=== PATIENT | male | born 1955 | race Caucasian/White ===

== ENCOUNTER → 2018-06-01 10:27 | Outpatient (CLI) | payer BC, SELFPAY ==
[2018-06-01 12:15] LABS: Absolute Lymphocyte Count 0.64 X10^3/ul (0.83-4.51); Absolute Neutrophil Count 6.1 X10^3/uL (2.0-7.7); Basophil# 0.03 X10^3/uL; Basophil% 0.4 % (0-1); Eosinophil# 0.18 X10^3/uL; Eosinophils% 2.4 % (0-5); Hematocrit 43.2 % (40-54); Hemoglobin 14.9 g/dl (13.0-16.5); Lymphocyte # 0.64 X10^3/ul (4.0); Lymphocyte % 8.4 % (19-41); Mean Corp Hgb Conc 34.5 g/gl (32-36); Mean Corpuscular Hgb 33.2 pg (27.0-32.0); Mean Corpuscular Volume 96.2 fL (80-94); Mean Platelet Vol. 9.8 fl (6.2-12.0); Monocyte# 0.62 X10^3/uL; Monocyte% 8.2 % (0-10); Neutrophil # 6.09 X10^3/uL (2.7-7.7); Neutrophil % 80.3 % (47-70); Platelet Count 269 K/mm3 (150-450); RBC Distribution Width CV 12.4 % (11.6-14.6); RBC Distribution Width SD 41.9 fl (35.1-43.9); Red Blood Count 4.49 M/mm3 (4.6-6.2); White Blood Count 7.6 K/mm3 (4.4-11.0)
[2018-06-01 12:22] LABS: Anion Gap 9 (5-15); BUN 21 mg/dL (7-18); BUN/Creat Ratio 17.9 RATIO (10-20); Calcium,Total 8.6 mg/dL (8.5-10.1); Chloride 103 mmol/L (98-107); Cholesterol 107 mg/dL (200); Creatinine, Serum 1.17 mg/dL (0.70-1.30); EST Glomerular Filtration Rate 67 mL/min (>60); Est Glom Filt Rate - Afr Amer 81 mL/min (>60); Glucose 91 mg/dL (74-106); High Density Lipoprotein 40 mg/dL; Potassium 4.1 mmol/L (3.5-5.1); Sodium Level 140 mmol/L (136-145); Thyroid Stim Hormone (TSH) 2.23 uIU/mL (0.358-3.74); Triglycerides 72 mg/dL; Very Low Density Lipoprotein 14 mg/dL (5-40)
[2018-06-01 12:26] LABS: POSITIVE COUNT NO; POSITIVE DIFFERENTIAL NO; POSITIVE MORPHOLOGY NO
== END ==
PROVIDERS: Family Provider Family Medicine; PCP Family Medicine; Visit Provider Family Medicine
DX: I10 Essential (primary) hypertension (principal); E78.5 Hyperlipidemia, unspecified; E03.9 Hypothyroidism, unspecified; J32.9 Chronic sinusitis, unspecified
CPT/HCPCS: 36415; 80048; 80061; 84443; 85025

== ENCOUNTER → 2018-12-28 17:02 | Outpatient (CLI) | payer BC, SELFPAY ==
[2018-12-28 16:12] VITALS: BMI 29.2
[2018-12-28 17:53] LABS: Anion Gap 10 (5-15); BUN 25 mg/dL (7-18); BUN/Creat Ratio 21.9 RATIO (10-20); Chloride 107 mmol/L (98-107); Creatinine, Serum 1.14 mg/dL (0.70-1.30); EST Glomerular Filtration Rate 69 mL/min (>60); Est Glom Filt Rate - Afr Amer 83 mL/min (>60); Glucose 88 mg/dL (74-106); Magnesium 2.2 mg/dL (1.6-2.6); Potassium 4.3 mmol/L (3.5-5.1); Sodium Level 143 mmol/L (136-145); T4 Free Direct 1.06 ng/dL (0.76-1.46); Thyroid Stim Hormone (TSH) 2.15 uIU/mL (0.358-3.74)
== END ==
PROVIDERS: Family Provider Family Medicine; PCP Family Medicine; Referring Provider Nurse Practitioner Family; Visit Provider Nurse Practitioner Family
DX: I48.92 Unspecified atrial flutter (principal); E78.5 Hyperlipidemia, unspecified; I10 Essential (primary) hypertension; R00.2 Palpitations
CPT/HCPCS: 36415; 80048; 83735; 84439; 84443

== ENCOUNTER → 2019-01-12 12:48 | Outpatient (CLI) | payer BC, SELFPAY ==
[2018-12-28 16:12] VITALS: BMI 29.2
== END ==
PROVIDERS: Family Provider Family Medicine; PCP Family Medicine; Referring Provider Nurse Practitioner Family; Visit Provider Nurse Practitioner Family
DX: R00.2 Palpitations (principal); I48.92 Unspecified atrial flutter
CPT/HCPCS: 93225; 93226

== ENCOUNTER → 2020-01-12 08:14 | Outpatient (CLI) | payer MEDICARE, BC, OTHER, SELFPAY ==
[2019-12-29 15:13] VITALS: BMI 30.1
[2020-01-12 08:17] LABS: Bacteria 0 SEEN /hpf (None Seen); Mucous, Urine 0 SEEN /hpf (<or=2+); Red Blood Cells-Urine 0 SEEN /hpf (0-5); Squamous Epithelial Cells - UA 0 SEEN /hpf (0-5); White Blood Cells 0 SEEN /hpf (0-5)
[2020-01-12 10:25] LABS: Color, Urine Yellow (Yellow); Glucose, Dipstick Normal (Normal); Ketone-Dipstick Negative (Negative); Leukocyte Esterase-Dipstick Negative /ul (Negative); Nitrite-Dipstick Negative (Negative); Occult Blood-Urine Negative /ul (Negative); Protein-Dipstick Negative (Negative); Specific Gravity, Urine 1.015 (1.002-1.030); Urine Bilirubin Dipstick Negative (Negative); Urine Clarity Clear (Clear); Urine Urobilinogen Normal (Normal)
[2020-01-12 10:29] LABS: Hematocrit 48.4 % (40-54); Hemoglobin 15.9 g/dL (13.0-16.5); Mean Corp Hgb Conc 32.9 g/dL (32-36); Mean Corpuscular Hgb 31.3 pg (27.0-32.0); Mean Corpuscular Volume 95.3 fL (80-94); Mean Platelet Vol. 9.7 fl (6.2-12.0); Platelet Count 307 K/mm3 (150-450); RBC Distribution Width CV 11.9 % (11.6-14.6); RBC Distribution Width SD 41.7 fl (35.1-43.9); Red Blood Count 5.08 M/mm3 (4.6-6.2); White Blood Count 7.7 K/mm3 (4.4-11.0)
[2020-01-12 11:02] LABS: ALB/GLOB Ratio 1.1 RATIO (0.9-2.4); AST(SGOT) 24 U/L (15-37); Alanine Aminotransfer ALT/SGPT 36 U/L (16-61); Albumin, Serum 4.3 g/dL (3.2-5.0); Alkaline Phosphatase 124 U/L (45-117); Anion Gap 4 (5-15); BUN 25 mg/dL (7-18); BUN/Creat Ratio 19.2 RATIO (10-20); Calcium,Total 10.1 mg/dL (8.5-10.1); Chloride 105 mmol/L (98-107); Cholesterol 154 mg/dL (200); EST Glomerular Filtration Rate 59 mL/min (>60); Est Glom Filt Rate - Afr Amer 71 mL/min (>60); Globulin 3.8 g/dL (2.2-4.2); Glucose 102 mg/dL (74-106); High Density Lipoprotein 37 mg/dL; Potassium 4.4 mmol/L (3.5-5.1); Protein, Total 8.1 g/dL (6.4-8.2); Sodium Level 137 mmol/L (136-145); T4 Free Direct 0.93 ng/dL (0.76-1.46); Thyroid Stim Hormone (TSH) 2.69 uIU/mL (0.358-3.74); Triglycerides 172 mg/dL; Very Low Density Lipoprotein 34 mg/dL (5-40)
[2020-01-12 17:09] LABS: Hemoglobin A1c 6.1 % (4.2-6.3)
== END ==
PROVIDERS: PCP Family Medicine; Referring Provider Family Medicine; Visit Provider Family Medicine
DX: E03.9 Hypothyroidism, unspecified (principal); E78.5 Hyperlipidemia, unspecified; I10 Essential (primary) hypertension; R73.09 Other abnormal glucose
CPT/HCPCS: 36415; 80053; 80061; 81001; 83036; 84439; 84443; 85027

== ENCOUNTER → 2020-01-19 09:49 | Outpatient (CLI) | payer BC, MEDICARE, OTHER, SELFPAY ==
[2019-12-29 15:13] VITALS: BMI 30.1
[2020-01-27 14:09] LABS: Thyroglobulin RIA 15 ng/mL (.); Thyroid Peroxidase AB 64 IU/mL (0-34)
== END ==
PROVIDERS: PCP Family Medicine; Referring Provider Family Medicine; Visit Provider Family Medicine
DX: E03.9 Hypothyroidism, unspecified (principal)
CPT/HCPCS: 36415; 84432; 86376; 86800

== ENCOUNTER → 2020-02-03 14:16 | Outpatient (CLI) | payer MEDICARE, OTHER, SELFPAY ==
[2019-12-29 15:13] VITALS: BMI 30.1
--- NOTE | 2020-02-03 14:25 | RAD_ITS ---
STUDY: X-RAY - LUMBAR SPINE REASON FOR EXAM: Male, 64 years old. Lower back pain TECHNIQUE: 5 view(s) of the lumbar spine were obtained. COMPARISON: 03/05/2017 FINDINGS: There is no evidence of fracture or dislocation in the lumbar spine. The vertebral body heights are well-maintained. There are stable degenerative changes which are most pronounced at L5/S1. RAD/L/S Spine Min 4 Views IMPRESSION: No fracture or dislocation in the lumbar spine. Stable degenerative change. Electronically Signed: Avni Avery, at 14:38 EDT Tel , Service support ,
[2020-02-03 18:04] LABS: CPK Total, Creatine Kinase 136 U/L (39-308); Ferritin 51 ng/mL (26-388); Magnesium 2.1 mg/dL (1.6-2.6)
[2020-02-03 18:10] LABS: Erythrocyte Sedimentation Rate 14 mm/hr (0-20)
== END ==
PROVIDERS: PCP Family Medicine; Referring Provider Family Medicine; Visit Provider Family Medicine
DX: M54.5 Low back pain (principal); R25.2 Cramp and spasm; M62.81 Muscle weakness (generalized); N18.9 Chronic kidney disease, unspecified
CPT/HCPCS: 36415; 72110; 82550; 82728; 83735; 85652

== ENCOUNTER → 2020-05-01 | Outpatient (CLI) | payer MEDICARE, OTHER, SELFPAY ==
[2019-12-29 15:13] VITALS: BMI 30.1
[2020-05-01 12:16] LABS: Absolute Lymphocyte Count 1.24 X10^3/uL (0.83-4.51); Absolute Neutrophil Count 3.3 X10^3/uL (2.0-7.7); Basophil# 0.04 X10^3/uL; Basophil% 0.7 % (0-1); Eosinophil# 0.25 X10^3/uL; Eosinophils% 4.5 % (0-5); Hematocrit 43.5 % (40-54); Hemoglobin 14.9 g/dL (13.0-16.5); Lymphocyte # 1.24 X10^3/ul (4.0); Lymphocyte % 22.3 % (19-41); Mean Corp Hgb Conc 34.3 g/dL (32-36); Mean Corpuscular Hgb 33.5 pg (27.0-32.0); Mean Corpuscular Volume 97.8 fL (80-94); Mean Platelet Vol. 9.7 fl (6.2-12.0); Monocyte# 0.68 X10^3/uL; Monocyte% 12.2 % (0-10); NRBC Flagged by Analyzer 0 % (0-5); Neutrophil # 3.31 X10^3/uL (2.7-7.7); Neutrophil % 59.6 % (47-70); Platelet Count 246 K/mm3 (150-450); RBC Distribution Width CV 12.2 % (11.6-14.6); RBC Distribution Width SD 43.9 fl (35.1-43.9); Red Blood Count 4.45 M/mm3 (4.6-6.2); White Blood Count 5.6 K/mm3 (4.4-11.0)
[2020-05-01 12:27] LABS: Hemoglobin A1c 6.3 % (3.8-5.6)
[2020-05-01 12:44] LABS: ALB/GLOB Ratio 1.1 RATIO (0.9-2.4); AST(SGOT) 33 U/L (15-37); Alanine Aminotransfer ALT/SGPT 46 U/L (16-61); Albumin, Serum 3.8 g/dL (3.2-5.0); Alkaline Phosphatase 141 U/L (45-117); Anion Gap 8 (5-15); BUN 25 mg/dL (7-18); BUN/Creat Ratio 19.4 RATIO (10-20); Calcium,Total 8.6 mg/dL (8.5-10.1); Chloride 104 mmol/L (98-107); Cholesterol 160 mg/dL (200); Creatinine, Serum 1.29 mg/dL (0.70-1.30); EST Glomerular Filtration Rate 59 mL/min (>60); Est Glom Filt Rate - Afr Amer 72 mL/min (>60); Globulin 3.5 g/dL (2.2-4.2); Glucose 119 mg/dL (74-106); High Density Lipoprotein 28 mg/dL; Potassium 4.1 mmol/L (3.5-5.1); Protein, Total 7.3 g/dL (6.4-8.2); Sodium Level 137 mmol/L (136-145); T4 Free Direct 0.86 ng/dL (0.76-1.46); Thyroid Stim Hormone (TSH) 3.43 uIU/mL (0.358-3.74); Triglycerides 430 mg/dL
== END | disposition home or self-care (01) ==
LOC: MTLAB 09:05
PROVIDERS: PCP Family Medicine; Referring Provider Family Medicine; Visit Provider Family Medicine
DX: E78.5 Hyperlipidemia, unspecified (principal); E03.8 Other specified hypothyroidism; I10 Essential (primary) hypertension; R73.02 Impaired glucose tolerance (oral)
CPT/HCPCS: 36415; 80053; 80061; 83036; 84439; 84443; 85025

== ENCOUNTER → 2020-05-17 12:40 | Outpatient (CLI) | payer MEDICARE, OTHER, SELFPAY ==
[2019-12-29 15:13] VITALS: BMI 30.1
--- NOTE | 2020-05-17 12:44 | ECHOCS_ITS ---
Reason For Study: SOB Procedure This was a 2D Doppler, Color Flow transthoracic echocardiogram. The study was technically difficult. Due to body habitus. Contrast injection was performed. Exam performed in department. Left Ventricle Normal LV size. Segmental dysfunction with preserved ejection fraction (see wall motion). The estimated ejection fraction is 60 %. Post operative septal motion. Diastolic function is indeterminate. Mid-inferoseptal : Hypokinetic. Mid-anteroseptal : Mildly hypokinetic. Right Ventricle Normal RV size. Normal systolic function. Atria Normal left atrium. Normal right atrium. No doppler evidence for ASD. Mitral Valve There is no mitral annular calcification. Normal mitral valve. Mild-Moderate (1-2+) mitral valve insufficiency. Tricuspid Valve Normal tricuspid valve. Trivial tricuspid valve insufficiency. Right ventricular systolic pressure estimated to be 35 mmHg. Aortic Valve Trisinus/trileaflet aortic valve. Mild focal aortic valve thickening. Pulmonic Valve The pulmonic valve is not well visualized. Great Vessels Normal sized aortic root. Pericardium/Pleural No pericardial effusion. Medication 22 gauge I.V. with prn adaptor inserted into right arm. Diluted definity 3.0ml given slow IV push to enhance endocardial definition. MMode/2D Measurements & Calculations LVIDd: 4.3 cm IVSd: 0.98 cm Ao root diam: 3.5 cm LVIDs: 3.2 cm LVPWd: 0.98 cm RVDd: 3.4 cm FS: 24.4 % LAV(MOD-bp): 54.5 ml LA A4 area: 19.3 cm2 LA dimension(2D): 3.5 cm LAV(MOD-bp) Indexed: 27.3 ml/m2 LAV(MOD-sp2): 54.0 ml LAV(MOD-sp4): 54.6 ml RA A4 area: 14.0 cm2 Time Measurements MV dec time: 0.22 sec Doppler Measurements & Calculations MV E max michi: 79.5 cm/sec Lat Peak E' Michi: 7.9 cm/sec Med Peak E' Michi: 6.3 cm/sec MV A max michi: 89.2 cm/sec E/E' lat: 10.0 E/E' med: 12.7 MV E/A: 0.89 Ao V2 max: 146.3 cm/sec LV V1 max: 126.3 cm/sec PA V2 max: 103.9 cm/sec Ao max P.6 mmHg LV V1 max P.4 mmHg Ao V2 mean: 97.2 cm/sec LV V1 mean P.4 mmHg Ao mean P.2 mmHg LV V1 mean: 87.7 cm/sec Ao V2 VTI: 29.4 cm LV V1 VTI: 27.0 cm TR max michi: 282.3 cm/sec TR max P.9 mmHg Interpretation Summary The study was technically difficult. Contrast injection was performed. Segmental dysfunction with preserved ejection fraction (see wall motion). The estimated ejection fraction is 60 %. Post operative septal motion. Mild-Moderate (1-2+) mitral valve insufficiency. Trivial tricuspid valve insufficiency. Mild focal aortic valve thickening. Right ventricular systolic pressure estimated to be 35 mmHg. Diastolic function is indeterminate. Ordering Physician: Jez Gotti Referring Physician: Jez Gotti Performed By: Mayra Piña RDCS, RVT
== END ==
PROVIDERS: PCP Family Medicine; Referring Provider Family Medicine; Visit Provider Family Medicine
DX: R06.02 Shortness of breath (principal)
CPT/HCPCS: 93306; Q9957; A4216; C8929

== ENCOUNTER → 2020-07-06 07:00 | Outpatient (CLI) | payer MEDICARE, OTHER, SELFPAY ==
[2019-12-29 15:13] VITALS: BMI 30.1
[2020-06-28 10:25] VITALS: BMI 31.9
--- NOTE | 2020-07-07 10:25 | PFT ---
INTRODUCTION: The patient is a 64-year-old male that presents for pulmonary function studies secondary to a diagnosis of shortness of breath. Respiratory therapy reports good patient effort. Bronchodilators were used during testing. INTERPRETATION: Forced expiration spirometry demonstrates no evidence of a large airways obstructive ventilatory defect. There was no significant response to aerosolized bronchodilators, based upon strict ATS criteria. Spirograms are of good quality and plateau normally. Body plethysmography was performed and reveals a decreased TLC to 4.59 L, 82% of predicted, indicative of a mild restrictive ventilatory impairment. Diffusing capacity by single breath CO is within normal limits. IMPRESSION: Isolated mild restrictive ventilatory impairment with preserved diffusing capacity.
== END ==
PROVIDERS: PCP Family Medicine; Referring Provider Family Medicine; Visit Provider Family Medicine
DX: R06.02 Shortness of breath (principal)
CPT/HCPCS: 94060; 94726; 94729

== ENCOUNTER → 2020-08-22 13:36 | Outpatient (CLI) | payer MEDICARE, OTHER, SELFPAY ==
[2020-07-17 08:52] VITALS: BMI 32.5
[2020-08-22 13:45] VITALS: PULSE 54; PULSE 57; PULSE 67; PULSE 72; PULSE 79; PULSE 80; PULSE 82; PULSE 89; O2SAT 94; O2SAT 95; O2SAT 96; O2SAT 98
--- NOTE | 2020-08-23 14:02 | PCM.PSN.6M ---
PSN 6 Minute Walk Test - 6 Minute Walk Test 6 Minute Walk Test: 6 Minute Walk Test PSN:6-Minute Walk Test Start: 08/22/20 14:12 Freq: Status: Active Protocol: RESP.6MINW Document 08/22/20 13:45 HJ (Rec: 08/22/20 14:15 [id number]) 6 Minute Walk Test Date Performed 08/22/20 Time Performed 13:45 Height 5 ft 6 in Weight: 87.09 kg Weight in Pounds 192.[address]: Bradford Up FIO2 (% Oxygen) 21 Assistive device used: None Pre-test Oxygen Delivery Method Room Air Pulse Ox (%) 98 Pulse Rate (60-100 beats/min) 54 L Dyspnea Esther Scale (0-10) 0 Exertion Esther Scale (6-20) 6 1st minute Oxygen Delivery Method Room Air Pulse Ox (%) 95 Pulse Rate (60-100 beats/min) 80 2nd minute Oxygen Delivery Method Room Air Pulse Ox (%) 94 Pulse Rate (60-100 beats/min) 67 3rd minute Oxygen Delivery Method Room Air Pulse Ox (%) 95 Pulse Rate (60-100 beats/min) 89 4th minute Oxygen Delivery Method Room Air Pulse Ox (%) 94 Pulse Rate (60-100 beats/min) 72 5th minute Oxygen Delivery Method Room Air Pulse Ox (%) 96 Pulse Rate (60-100 beats/min) 82 6th minute Oxygen Delivery Method Room Air Pulse Ox (%) 95 Pulse Rate (60-100 beats/min) 79 Post-test Oxygen Delivery Method Room Air Pulse Ox (%) 98 Pulse Rate (60-100 beats/min) 57 L Dyspnea Esther Scale (0-10) 1 Exertion Esther Scale (6-20) 6 Full Laps Walked 18 Partial Lap, Number of Tiles Walked 0 Total Distance Walked (ft) 1062 - Interpretation Interpretation: The patient was able to ambulate 1062 feet over the course of 6 minutes on room air with no assistive devices or breaks. No significant tachycardia was noted. These findings are consistent with a normal walking oximetry. - Recommendations Recommendations: No supplemental oxygen is indicated at this time.
== END ==
PROVIDERS: PCP Family Medicine; Referring Provider Internal Medicine Critical Care Medicine; Visit Provider Internal Medicine Critical Care Medicine
DX: R06.02 Shortness of breath (principal)
CPT/HCPCS: 94618

== ENCOUNTER → 2020-08-25 08:42 | Outpatient (CLI) | payer MEDICARE, OTHER, SELFPAY ==
[2020-07-17 08:52] VITALS: BMI 32.5
[2020-08-25 08:53] LABS: Bacteria 0 SEEN /hpf (None Seen); Mucous, Urine 0 SEEN /hpf (<or=2+); Red Blood Cells-Urine 0 SEEN /hpf (0-5); Squamous Epithelial Cells - UA 0 SEEN /hpf (0-5); White Blood Cells 0 SEEN /hpf (0-5)
[2020-08-25 10:21] LABS: Color, Urine Yellow (Yellow); Glucose, Dipstick Normal (Normal); Ketone-Dipstick 5 mg/dl (Negative); Leukocyte Esterase-Dipstick 25 /ul (Negative); Nitrite-Dipstick Negative (Negative); Occult Blood-Urine Negative /ul (Negative); Protein-Dipstick 15 mg/dl (Negative); Urine Bilirubin Dipstick Negative (Negative); Urine Clarity Clear (Clear); Urine Urobilinogen Normal (Normal)
[2020-08-25 10:23] LABS: Absolute Lymphocyte Count 1.48 X10^3/uL (0.83-4.51); Absolute Neutrophil Count 4.8 X10^3/uL (2.0-7.7); Basophil# 0.05 X10^3/uL; Basophil% 0.7 % (0-1); Eosinophil# 0.25 X10^3/uL; Eosinophils% 3.4 % (0-5); Hematocrit 46.5 % (40-54); Hemoglobin 15.7 g/dL (13.0-16.5); Lymphocyte # 1.48 X10^3/ul (4.0); Lymphocyte % 20.4 % (19-41); Mean Corp Hgb Conc 33.8 g/dL (32-36); Mean Corpuscular Hgb 32.4 pg (27.0-32.0); Mean Corpuscular Volume 96.1 fL (80-94); Monocyte% 8.3 % (0-10); NRBC Flagged by Analyzer 0 % (0-5); Neutrophil # 4.83 X10^3/uL (2.7-7.7); Neutrophil % 66.5 % (47-70); Platelet Count 271 K/mm3 (150-450); RBC Distribution Width SD 42.2 fl (35.1-43.9); Red Blood Count 4.84 M/mm3 (4.6-6.2); White Blood Count 7.3 K/mm3 (4.4-11.0)
[2020-08-25 11:12] LABS: ALB/GLOB Ratio 1.1 RATIO (0.9-2.4); AST(SGOT) 22 U/L (15-37); Alanine Aminotransfer ALT/SGPT 33 U/L (16-61); Albumin, Serum 3.9 g/dL (3.2-5.0); Alkaline Phosphatase 107 U/L (45-117); Anion Gap 4 (5-15); BUN 17 mg/dL (7-18); BUN/Creat Ratio 13.8 RATIO (10-20); Calcium,Total 8.8 mg/dL (8.5-10.1); Chloride 106 mmol/L (98-107); Cholesterol 142 mg/dL (200); Creatinine, Serum 1.23 mg/dL (0.70-1.30); EST Glomerular Filtration Rate 62 mL/min (>60); Est Glom Filt Rate - Afr Amer 76 mL/min (>60); Globulin 3.6 g/dL (2.2-4.2); Glucose 120 mg/dL (74-106); High Density Lipoprotein 30 mg/dL; Magnesium 2.3 mg/dL (1.6-2.6); Potassium 3.8 mmol/L (3.5-5.1); Protein, Total 7.5 g/dL (6.4-8.2); Sodium Level 139 mmol/L (136-145); T4 Free Direct 0.94 ng/dL (0.76-1.46); Thyroid Stim Hormone (TSH) 3.31 uIU/mL (0.358-3.74); Triglycerides 416 mg/dL
[2020-08-25 11:30] LABS: Hemoglobin A1c 5.6 % (3.8-5.6)
== END ==
PROVIDERS: PCP Family Medicine; Referring Provider Family Medicine; Visit Provider Family Medicine
DX: I10 Essential (primary) hypertension (principal); R73.02 Impaired glucose tolerance (oral); E78.5 Hyperlipidemia, unspecified; I49.3 Ventricular premature depolarization; E03.8 Other specified hypothyroidism
CPT/HCPCS: 36415; 80053; 80061; 81001; 83036; 83735; 84439; 84443; 85025

== ENCOUNTER → 2020-08-30 10:25 | Outpatient (CLI) | payer MEDICARE, OTHER, SELFPAY ==
[2020-07-17 08:52] VITALS: BMI 32.5
--- NOTE | 2020-08-30 10:29 | RAD_ITS ---
STUDY: X-RAY - PELVIS AND BILATERAL HIPS REASON FOR EXAM: Right hip pain for 2 weeks, no specific injury. TECHNIQUE: AP view of the pelvis.? 2 views of the right hip, and 2 views of the left hip were obtained. COMPARISON: Radiographs 03/05/2017. FINDINGS: There are small clips at the medial aspect of the proximal left thigh. There is joint space narrowing of the right sacroiliac joint. Normal bilateral iliac wings, left sacroiliac joint and visualized sacrum. Normal bilateral superior and inferior pubic rami. Normal pubic symphysis. Normal bilateral ischial tuberosities. Normal visualized right femoral head. Normal right acetabulum. There is mild joint space narrowing of the superior medial right hip joint. Normal visualized left femoral head. Normal left acetabulum. There is mild joint space narrowing of the superior medial left hip joint. 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 Electronically Signed: Reggie Abraham MD at 14:29 EDT Tel , Service support ,
== END ==
PROVIDERS: PCP Family Medicine; Referring Provider Family Medicine; Visit Provider Family Medicine
DX: M25.551 Pain in right hip (principal)
CPT/HCPCS: 73521

== ENCOUNTER → 2020-09-26 08:43 | Outpatient (CLI) | payer MEDICARE, OTHER, SELFPAY ==
[2020-09-13 11:19] VITALS: BMI 31.4
--- NOTE | 2020-09-26 08:45 | RDU_ITS ---
Reason For Study: Hypertension Right Renal Artery Left Renal Artery Right renal artery ostium Left renal artery ostium 157.9/37 152.5/41.4 RSV/EDV. PSV/EDV. Right renal artery proximal Left renal artery proximal PSV/EDV 139.9/39 PSV/EDV. 178.8/32.8 . Right renal artery mid 129.3/32.7 Left renal artery mid 127.8/18.7 PSV/EDV. PSV/EDV . Right renal artery distal Left renal artery distal 140.2/34.9 138.1/23.9 PSV/EDV. PSV/EDV. Right Renal Parenchyma Left Renal Parenchyma Upper Pole Medula 32.5/7.9 PSV/EDV. Left upper pole medulla 27.8/6.9 Right upper pole medulla EDR 0.24 . PSV/EDV . Right upper pole medulla R.I. Left upper pole medulla EDR 0.25 . 0.76 . Left upper pole medulla R.I. 0.75 . Upper Luis Enrique Cortx 24.5/7.3 PSV/EDV. UP Cortex 22.8/5.6 PSV/EDV. Right upper pole cortex EDR 0.30 . Left upper pole cortex EDR 0.25 . Right upper pole cortex R.I. 0.70 . Left upper pole cortex R.I. 0.75 . Right lower Pole medulla 30/8.5 Left lower Pole medulla 25.3/8.1 PSV/EDV . PSV/EDV . Right lower pole medulla EDR 0.28 . Left lower pole medulla EDR 0.32 . Right lower pole medulla R.I. Left lower pole medulla R.I. 0.68 . 0.72 . Lower Pole Cortx 17.3/3.8 PSV/EDV. Lower Pole Cortex 24.5/7.9 PSV/EDV. Left lower pole cortex EDR 0.22 . Right lower pole cortex EDR 0.32 . Left lower pole cortex R.I. 0.78 . Right lower pole cortex R.I. 0.68 . Left Renal Hilar Right Renal Hilar LT Hilar avg 51.5/14.2 PSV/EDV . Right Hilar avg 54.7/13.6 PSV/EDV. Left hilar acceleration time 50 Right hilar acceleration time 70 m/sec. m/sec. Left Renal Dimensions Right Renal Dimensions Left kidney size 10.16 cm . Right kidney size 10.74 cm . Left cortical dimension 1.47 cm . Right cortical dimension 1.46 cm . Aorta Proximal abdominal aorta 1.27 x 1.25 cm . Proximal abdominal aorta peak systolic velocity is 116.1 cm/sec . Distal abdominal aorta 1.35 x 1.33 cm . Distal abdominal aorta peak systolic velocity is 127.1 cm/sec . Interpretation Summary Dimensions of the intra-abdominal aorta appear normal, without evidence of aneurysmal dilatation. Renal artery velocities are bilaterally normal. Acceleration times are normal bilaterally. There is no evidence of hemodynamically significant renal artery stenosis on either side. Cortical dimensions are bilaterally normal. Kidneys appear normal in size bilaterally. Ordering Physician: Cheyenne Lacey Referring Physician: Jez Gotti Performed By: Juju Wraren RVT
== END ==
PROVIDERS: PCP Family Medicine; Referring Provider Internal Medicine Nephrology; Visit Provider Internal Medicine Nephrology
DX: Z01.818 Encounter for other preprocedural examination (principal); I12.9 Hypertensive chronic kidney disease with stage 1 through stage 4 chronic kidney disease, or unspecified chronic kidney disease; N18.4 Chronic kidney disease, stage 4 (severe)
CPT/HCPCS: 93975

== ENCOUNTER → 2020-09-29 10:46 | Outpatient (CLI) | payer MEDICARE, OTHER, SELFPAY ==
[2020-09-27 13:48] VITALS: BMI 31.1
== END ==
PROVIDERS: PCP Family Medicine; Referring Provider Physician Assistant Medical; Visit Provider Physician Assistant Medical
DX: I49.3 Ventricular premature depolarization (principal)
CPT/HCPCS: 93225; 93226

== ENCOUNTER → 2020-10-18 09:39 | Outpatient (CLI) | payer MEDICARE, OTHER, SELFPAY ==
[2020-09-27 13:48] VITALS: BMI 31.1
[2020-10-18 12:45] LABS: Albumin, Serum 4.1 g/dL (3.2-5.0); BUN 17 mg/dL (7-18); BUN/Creat Ratio 15.5 RATIO (10-20); Calcium,Total 9.1 mg/dL (8.5-10.1); Chloride 106 mmol/L (98-107); EST Glomerular Filtration Rate 71 mL/min (>60); Est Glom Filt Rate - Afr Amer 86 mL/min (>60); Glucose 106 mg/dL (74-106); Potassium 3.7 mmol/L (3.5-5.1); Sodium Level 139 mmol/L (136-145)
== END ==
PROVIDERS: PCP Family Medicine; Referring Provider Internal Medicine Nephrology; Visit Provider Internal Medicine Nephrology
DX: N18.31 Chronic kidney disease, stage 3a (principal)
CPT/HCPCS: 36415; 80069

== ENCOUNTER → 2020-10-30 | Outpatient (CLI) | payer MEDICARE, OTHER, SELFPAY ==
[2020-09-27 13:48] VITALS: BMI 31.1
[2020-11-05 20:07] LABS: Dopamine, UR 106 ug/L (Undefined); Epinephrine, 24Ur 4 ug/24 hr (0-20); Epinephrine, Ur 2 ug/L (Undefined); Metanephrine, Ur 41 ug/L (Undefined); Norepinephrine, 24Ur 57 ug/24 hr (0-135); Norepinephrine, Ur 27 ug/L (Undefined); Normetanephrines, 24Ur 298 ug/24 hr (156-729); Normetanephrines, Ur 142 ug/L (Undefined)
[2020-11-05 20:42] LABS: Dopamine, 24Ur 223 ug/24 hr (0-510); Metanephrines, 24Ur 86 ug/24 hr (58-276)
== END | disposition home or self-care (01) ==
LOC: LABSPEC 09:44
PROVIDERS: PCP Family Medicine; Referring Provider Internal Medicine Nephrology; Visit Provider Internal Medicine Nephrology
DX: I12.9 Hypertensive chronic kidney disease with stage 1 through stage 4 chronic kidney disease, or unspecified chronic kidney disease (principal); N18.31 Chronic kidney disease, stage 3a
CPT/HCPCS: 81050; 82384; 83835

== ENCOUNTER → 2020-11-21 09:21 | Outpatient (CLI) | payer MEDICARE, OTHER, SELFPAY ==
[2020-09-27 13:48] VITALS: BMI 31.1
[2020-11-08 14:06] VITALS: BMI 31.8
[2020-11-21 13:48] LABS: BUN 24 mg/dL (7-18); BUN/Creat Ratio 21.1 RATIO (10-20); Calcium,Total 9.6 mg/dL (8.5-10.1); Chloride 101 mmol/L (98-107); Creatinine, Serum 1.14 mg/dL (0.70-1.30); EST Glomerular Filtration Rate 68 mL/min (>60); Est Glom Filt Rate - Afr Amer 82 mL/min (>60); Glucose 124 mg/dL (74-106); Phosphorus 3.9 mg/dL (2.5-4.9); Potassium 4.1 mmol/L (3.5-5.1); Sodium Level 137 mmol/L (136-145)
== END ==
LOC: MTLAB 09:24 → LAB 11:37
PROVIDERS: PCP Family Medicine; Referring Provider Internal Medicine Nephrology; Visit Provider Internal Medicine Nephrology
DX: I12.9 Hypertensive chronic kidney disease with stage 1 through stage 4 chronic kidney disease, or unspecified chronic kidney disease (principal); N18.31 Chronic kidney disease, stage 3a
CPT/HCPCS: 36415; 80069

== ENCOUNTER → 2020-12-28 09:55 | Outpatient (CLI) | payer MEDICARE, OTHER, SELFPAY ==
[2020-11-08 14:06] VITALS: BMI 31.8
[2020-12-28 11:53] LABS: Absolute Lymphocyte Count 1.53 X10^3/uL (0.83-4.51); Absolute Neutrophil Count 4.6 X10^3/uL (2.0-7.7); Basophil# 0.07 X10^3/uL; Eosinophil# 0.28 X10^3/uL; Eosinophils% 3.9 % (0-5); Hematocrit 41.9 % (40-54); Hemoglobin 14.1 g/dL (13.0-16.5); Lymphocyte # 1.53 X10^3/ul (4.0); Lymphocyte % 21.5 % (19-41); Mean Corp Hgb Conc 33.7 g/dL (32-36); Mean Corpuscular Hgb 32.2 pg (27.0-32.0); Mean Corpuscular Volume 95.7 fL (80-94); Mean Platelet Vol. 9.2 fl (6.2-12.0); Monocyte# 0.57 X10^3/uL; NRBC Flagged by Analyzer 0 % (0-5); Neutrophil # 4.59 X10^3/uL (2.7-7.7); Neutrophil % 64.8 % (47-70); Platelet Count 271 K/mm3 (150-450); RBC Distribution Width CV 12.3 % (11.6-14.6); RBC Distribution Width SD 43.1 fl (35.1-43.9); Red Blood Count 4.38 M/mm3 (4.6-6.2); White Blood Count 7.1 K/mm3 (4.4-11.0)
[2020-12-28 12:14] LABS: Hemoglobin A1c 6.6 % (3.8-5.6)
[2020-12-28 12:18] LABS: ALB/GLOB Ratio 1.2 RATIO (0.9-2.4); AST(SGOT) 29 U/L (15-37); Alanine Aminotransfer ALT/SGPT 69 U/L (16-61); Albumin, Serum 4.2 g/dL (3.2-5.0); Alkaline Phosphatase 126 U/L (45-117); Anion Gap 4 (5-15); BUN 26 mg/dL (7-18); BUN/Creat Ratio 18.8 RATIO (10-20); Calcium,Total 9.3 mg/dL (8.5-10.1); Chloride 103 mmol/L (98-107); Cholesterol 139 mg/dL (200); Creatinine, Serum 1.38 mg/dL (0.70-1.30); EST Glomerular Filtration Rate 55 mL/min (>60); Est Glom Filt Rate - Afr Amer 66 mL/min (>60); Globulin 3.4 g/dL (2.2-4.2); Glucose 110 mg/dL (74-106); High Density Lipoprotein 36 mg/dL; Potassium 4.3 mmol/L (3.5-5.1); Protein, Total 7.6 g/dL (6.4-8.2); Sodium Level 134 mmol/L (136-145); Thyroid Stim Hormone (TSH) 2.94 uIU/mL (0.358-3.74); Triglycerides 203 mg/dL; Very Low Density Lipoprotein 41 mg/dL (5-40)
== END ==
PROVIDERS: PCP Family Medicine; Referring Provider Family Medicine; Visit Provider Family Medicine
DX: I25.10 Atherosclerotic heart disease of native coronary artery without angina pectoris (principal); E78.5 Hyperlipidemia, unspecified; R73.02 Impaired glucose tolerance (oral); E03.8 Other specified hypothyroidism
CPT/HCPCS: 36415; 80053; 80061; 83036; 84443; 85025

== ENCOUNTER → 2021-03-05 07:28 | Outpatient (CLI) | payer MEDICARE, OTHER, SELFPAY ==
[2020-11-08 14:06] VITALS: BMI 31.8
[2021-03-05 10:42] LABS: BUN 14 mg/dL (7-18); BUN/Creat Ratio 11.2 RATIO (10-20); Calcium,Total 8.9 mg/dL (8.5-10.1); Chloride 105 mmol/L (98-107); Creatinine, Serum 1.25 mg/dL (0.70-1.30); EST Glomerular Filtration Rate 61 mL/min (>60); Est Glom Filt Rate - Afr Amer 74 mL/min (>60); Glucose 118 mg/dL (74-106); Phosphorus 3.1 mg/dL (2.5-4.9); Sodium Level 137 mmol/L (136-145)
== END ==
PROVIDERS: PCP Family Medicine; Referring Provider Internal Medicine Nephrology; Visit Provider Internal Medicine Nephrology
DX: N18.31 Chronic kidney disease, stage 3a (principal)
CPT/HCPCS: 36415; 80069

== ENCOUNTER → 2021-03-19 09:40 | Outpatient (CLI) | payer MEDICARE, OTHER, SELFPAY ==
[2021-03-06 11:11] VITALS: BMI 32.8
[2021-03-19 12:29] LABS: Absolute Lymphocyte Count 1.47 X10^3/uL (0.83-4.51); Absolute Neutrophil Count 4.3 X10^3/uL (2.0-7.7); Basophil# 0.06 X10^3/uL; Basophil% 0.9 % (0-1); Eosinophil# 0.23 X10^3/uL; Eosinophils% 3.5 % (0-5); Hematocrit 46.8 % (40-54); Hemoglobin 15.5 g/dL (13.0-16.5); Lymphocyte # 1.47 X10^3/ul (0.83-4.51); Lymphocyte % 22.1 % (19-41); Mean Corp Hgb Conc 33.1 g/dL (32-36); Mean Corpuscular Hgb 32.8 pg (27.0-32.0); Mean Corpuscular Volume 98.9 fL (80-94); Mean Platelet Vol. 9.5 fl (6.2-12.0); Monocyte# 0.54 X10^3/uL; Monocyte% 8.1 % (0-10); NRBC Flagged by Analyzer 0 % (0-5); Neutrophil % 64.5 % (47-70); Platelet Count 290 K/mm3 (150-450); RBC Distribution Width CV 12.3 % (11.6-14.6); RBC Distribution Width SD 45.1 fl (35.1-43.9); Red Blood Count 4.73 M/mm3 (4.6-6.2); White Blood Count 6.7 K/mm3 (4.4-11.0)
[2021-03-19 12:55] LABS: ALB/GLOB Ratio 1.1 RATIO (0.9-2.4); AST(SGOT) 31 U/L (15-37); Alanine Aminotransfer ALT/SGPT 77 U/L (16-61); Alkaline Phosphatase 130 U/L (45-117); Anion Gap 7 (5-15); BUN 16 mg/dL (7-18); Calcium,Total 8.7 mg/dL (8.5-10.1); Chloride 103 mmol/L (98-107); Cholesterol 133 mg/dL (200); Creatinine, Serum 1.14 mg/dL (0.70-1.30); EST Glomerular Filtration Rate 68 mL/min (>60); Est Glom Filt Rate - Afr Amer 82 mL/min (>60); Globulin 3.7 g/dL (2.2-4.2); Glucose 106 mg/dL (74-106); High Density Lipoprotein 32 mg/dL; Potassium 4.1 mmol/L (3.5-5.1); Protein, Total 7.7 g/dL (6.4-8.2); Sodium Level 138 mmol/L (136-145); T4 Free Direct 0.92 ng/dL (0.76-1.46); Thyroid Stim Hormone (TSH) 2.54 uIU/mL (0.358-3.74); Triglycerides 446 mg/dL
[2021-03-19 13:19] LABS: Microalbumin,Random Urine 18.4 mg/L (NO RANGE EST.); Microalbumin:Creatinine Ratio 19.2 mg/g CRE (<30 mg/g CRE)
[2021-03-19 13:27] LABS: Hemoglobin A1c 5.8 % (3.8-5.6)
== END ==
PROVIDERS: PCP Family Medicine; Visit Provider Family Medicine
DX: I25.10 Atherosclerotic heart disease of native coronary artery without angina pectoris (principal); E11.9 Type 2 diabetes mellitus without complications; E78.5 Hyperlipidemia, unspecified; E03.8 Other specified hypothyroidism
CPT/HCPCS: 36415; 80053; 80061; 82043; 82570; 83036; 84439; 84443; 85025

== ENCOUNTER → 2021-03-26 10:49 | Outpatient (CLI) | payer MEDICARE, OTHER, SELFPAY ==
[2021-03-06 11:11] VITALS: BMI 32.8
--- NOTE | 2021-03-26 12:53 | STRESSREP ---
Stress Test Report Date: 03-26-2021 Procedure: Pharmacologic stress nuclear imaging study Indications: Chest pain; CAD; CABG paroxysmal atrial dysrhythmia Consent: Per the patient Procedure: The patient underwent pharmacologic (Regadenoson 0.4mg ) evaluation with a peak heart rate of 115 beats per minute (75%predicted maximal heart rate) and a peak blood pressure of 160/98 mmHg. The baseline ECG demonstrated sinus rhythm. The peak pharmacologic ECG demonstrated no obvious ECG changes. There were no cardiac dysrhythmias pretest, during pharmacologic infusion, or recovery. There was no complaint of chest discomfort during pharmacologic infusion or recovery. The examination was discontinued secondary to completion of protocol. Impression: 1. Pharmacologic (Regadenoson) evaluation 2. Peak pharmacologic ECG with no obvious ECG changes. 3. There were no cardiac dysrhythmias pretest, during pharmacologic infusion, or recovery. 4. Nuclear images pending Myocardial perfusion imaging study: Technique: The patient was injected with 14.1 millicuries of technetium 99m Cardiolite and subsequently rest SPECT Cardiolite nuclear imaging was obtained in the horizontal long, vertical long, and short axis views. The patient underwent pharmacologic (Regadenoson) evaluation with a peak heart rate of 115 beats per minute (75% percent predicted maximal heart rate) and a peak blood pressure of 160/98 mmHg. The patient was injected with 44.6 millicuries oftechnetium 99m Cardiolite and subsequently stress SPECT Cardiolite nuclear imaging was obtained in the horizontal long, vertical long, and short axis views. A gated Cardiolite study at peak stress was obtained. Interpretation: Rest and stress SPECT Cardiolite nuclear imaging status post realignment, normalization, and attenuation correction demonstrate relative uniform tracer uptake and myocardial perfusion appearing within normal limits. There is end systolic thickening and brightening. The gated Cardiolite study demonstrates myocardial thickening and inward wall motion. The reported LVEF is 72%. Impression: 1. Rest and stress SPECT Cardiolite nuclear imaging demonstrate relative uniform tracer uptake and myocardial perfusion appearing within normal limits. 2. The gated Cardiolite study reports an LVEF of 72%. This note was generated with [employer] software. It may contain incorrect words, spelling, and punctuation that were not noted in checking the note before signing.
== END ==
PROVIDERS: PCP Family Medicine; Referring Provider Family Medicine; Visit Provider Family Medicine
DX: R07.9 Chest pain, unspecified (principal); E11.9 Type 2 diabetes mellitus without complications
CPT/HCPCS: 78452; 93017; A9500; A4216; J2785

== ENCOUNTER → 2021-07-18 10:19 | Outpatient (CLI) | payer MEDICARE, OTHER, SELFPAY ==
[2021-07-18 12:19] LABS: Absolute Lymphocyte Count 1.65 X10^3/uL (0.83-4.51); Absolute Neutrophil Count 4.5 X10^3/uL (2.0-7.7); Basophil# 0.08 X10^3/uL; Basophil% 1.1 % (0-1); Eosinophil# 0.31 X10^3/uL; Eosinophils% 4.2 % (0-5); Hematocrit 43.1 % (40-54); Hemoglobin 14.9 g/dL (13.0-16.5); Lymphocyte # 1.65 X10^3/ul (0.83-4.51); Lymphocyte % 22.5 % (19-41); Mean Corp Hgb Conc 34.6 g/dL (32-36); Mean Corpuscular Hgb 32.7 pg (27.0-32.0); Mean Corpuscular Volume 94.5 fL (80-94); Mean Platelet Vol. 9.5 fl (6.2-12.0); Monocyte# 0.64 X10^3/uL; Monocyte% 8.7 % (0-10); NRBC Flagged by Analyzer 0 % (0-5); Neutrophil # 4.49 X10^3/uL (2.7-7.7); Neutrophil % 61.5 % (47-70); Platelet Count 243 K/mm3 (150-450); RBC Distribution Width CV 12.7 % (11.6-14.6); RBC Distribution Width SD 43.8 fl (35.1-43.9); Red Blood Count 4.56 M/mm3 (4.6-6.2); White Blood Count 7.3 K/mm3 (4.4-11.0)
[2021-07-18 12:47] LABS: Hemoglobin A1c 6.6 % (3.8-5.6)
[2021-07-18 12:50] LABS: AST(SGOT) 51 U/L (15-37); Alanine Aminotransfer ALT/SGPT 87 U/L (16-61); Albumin, Serum 3.9 g/dL (3.2-5.0); Alkaline Phosphatase 128 U/L (45-117); Anion Gap 8 (5-15); BUN 22 mg/dL (7-18); BUN/Creat Ratio 18.6 RATIO (10-20); Calcium,Total 9.1 mg/dL (8.5-10.1); Chloride 103 mmol/L (98-107); Cholesterol 151 mg/dL (200); Creatinine, Serum 1.18 mg/dL (0.70-1.30); EST Glomerular Filtration Rate 65 mL/min (>60); Est Glom Filt Rate - Afr Amer 79 mL/min (>60); Globulin 3.9 g/dL (2.2-4.2); Glucose 128 mg/dL (74-106); High Density Lipoprotein 32 mg/dL; Potassium 4.2 mmol/L (3.5-5.1); Protein, Total 7.8 g/dL (6.4-8.2); Sodium Level 136 mmol/L (136-145); T4 Free Direct 0.89 ng/dL (0.76-1.46); Thyroid Stim Hormone (TSH) 6.05 uIU/mL (0.358-3.74); Triglycerides 370 mg/dL; Very Low Density Lipoprotein 74 mg/dL (5-40)
[2021-07-18 14:41] LABS: Microalbumin,Random Urine 18.9 mg/L (NO RANGE EST.); Microalbumin:Creatinine Ratio 21.5 mg/g CRE (<30 mg/g CRE)
== END ==
PROVIDERS: PCP Family Medicine; Referring Provider Family Medicine; Visit Provider Family Medicine
DX: E11.9 Type 2 diabetes mellitus without complications (principal); E03.8 Other specified hypothyroidism
CPT/HCPCS: 36415; 80053; 80061; 82043; 82570; 83036; 84439; 84443; 85025

== ENCOUNTER → 2021-08-02 09:23 | Outpatient (CLI) | payer MEDICARE, OTHER, SELFPAY ==
--- NOTE | 2021-08-02 09:33 | BI_ITS ---
MAMMOGRAPHY - BILATERAL DIAGNOSTIC REASON FOR EXAM: Male, 65 years old. Painful left retroareolar lump. PERTINENT HISTORY: Remote right breast biopsy. TECHNIQUE: Digital bilateral breast randal (3D mammographic acquisition) in the CC and MLO projections. 2-D mediolateral oblique (MLO) and craniocaudad (CC) views of both breasts were obtained. CAD: Full Field Digital Mammography with Computer Added Detection was performed. COMPARISON: None. Baseline examination. FINDINGS: Breast Composition: There are scattered areas of fibroglandular density in the left retroareolar region. There are no dominant masses or suspicious calcifications. No other significant abnormalities are identified. BI/DIAG MAMM W/CAD, BILAT IMPRESSION: Focal glandular tissue in the left retroareolar region. Correlation with ultrasound is recommended. ASSESSMENT CATEGORY: BIRADS Category 0: Incomplete. Need additional imaging evaluation. A letter regarding these results will be sent to the patient by the facility within 30 days. Approximately 10% of breast cancers are not detected by mammography. A normal mammogram should not delay biopsy of a clinically suspicious abnormality. Electronically Signed: Miguel Carrillo MD at 11:00 EDT , Service support ,
--- NOTE | 2021-08-02 10:07 | US_ITS ---
STUDY: ULTRASOUND BREAST - LEFT REASON FOR EXAM: Male, 65 years old. Palpable lump left breast. TECHNIQUE: Axial and longitudinal images of the LEFT breast were performed with a high resolution ultrasound transducer. # OF IMAGES: 23 COMPARISON: Comparison is made with prior mammogram done earlier in the day. FINDINGS: LEFT Breast: The palpable abnormality corresponds to a 1.2 cm x 1.1 cm x 0.9 cm hypoechoic irregular nodular density. Biopsy recommended. US/Breast Limited Unilateral IMPRESSION: 1.2 cm x 1.1 cm x 0.9 cm hypoechoic irregular nodular density in the retroareolar region of the left breast. Biopsy is recommended. ASSESSMENT CATEGORY: BIRADS Category 4: Suspicious - Biopsy Should Be Considered. A letter regarding these results will be sent to the patient by the facility within 30 days. Electronically Signed: Miguel Carrillo MD at 11:02 EDT , Service support ,
== END ==
PROVIDERS: PCP Family Medicine; Referring Provider Family Medicine; Visit Provider Family Medicine
DX: N64.4 Mastodynia (principal); N63.42 Unspecified lump in left breast, subareolar
CPT/HCPCS: 76642; 77062; 77066; G0279

== ENCOUNTER → 2021-08-09 14:10 | Outpatient (CLI) | payer MEDICARE, OTHER, SELFPAY ==
--- NOTE | 2021-08-09 14:14 | RAD_ITS ---
STUDY: X-RAY - LEFT FOOT CLINICAL: Male, 65 years old. PAIN TECHNIQUE: 3 view(s) of the foot. COMPARISON: None. FINDINGS: Normal talus, calcaneus, and tarsal bones. Normal visualized subtalar, talonavicular, calcaneocuboid, tarsal and tarsometatarsal articulations. Normal metatarsi. There is degenerative arthrosis of the metatarsophalangeal joint of the hallux . Normal tibial and fibular sesamoid bones. Normal interphalangeal joint of the great toe. Normal phalanges of the great toe. Normal second through fifth metatarsophalangeal joints. Normal interphalangeal joints and phalanges of the lesser toes. The soft tissue structures are unremarkable. RAD/Foot min 3 Views IMPRESSION: There is degenerative arthrosis of the metatarsophalangeal joint of the hallux . Electronically Signed: Jose Leblanc MD at 12:26 EDT , Service support ,
== END ==
PROVIDERS: PCP Family Medicine; Referring Provider Family Medicine; Visit Provider Family Medicine
DX: M79.672 Pain in left foot (principal)
CPT/HCPCS: 73630

== ENCOUNTER 2021-08-13 10:00 | Day surgery (SDC) | payer MEDICARE, OTHER, SELFPAY ==
--- NOTE | 2021-08-13 | BRBX_PTH ---
PATIENT: KEITH SUAZO LOC: [facility] [place] U#:[id number] AGE/SX: 65/M ROOM: RE08/13/[address]: Dr. Torsten Mobley MD : 1955 BED: DIS: 08/13/2021 SPEC #: [id number] RECD: 08/13/21 12:25 STATUS: CLAUDIA GENEVA #: [id number] DAVID: 08/13/21 00:[address]: Torsten Mobley DEPT: SURGICAL PATHOLOGY RECD BY: Soraya Collier ENTERED: 08/13/21 13:07 SP TYPE: BREAST BX OTHR DR: Dr. Jez Gotti MD Tissues: Left breast, NOS Procedures: Frozen Section (charge) Frozen Section Add'l ([facility]) Surgery Specimen Level V HEADER OPERATION: Excisional breast biopsy with frozen section PRE-OP DIAGNOSIS: Left breast mass, mastodynia of left breast TISSUE SUBMITTED: Left breast excisional biopsy, FS at 1221, long suture ? lateral, short suture ? superior FROZEN SECTION DIAGNOSIS Left breast lumpectomy: Consistent with gynecomastia. AM:sam 08/13/2021 MICROSCOPIC DIAGNOSIS Left breast, excisional biopsy: Consistent with gynecomastia. See comment. SJ:sam 08/15/2021 COMMENT Please make reference to previous specimen ([id number]), right breast mass, excision with diagnosis of ?mature lobulated adipose tissue and minimal duct ectasia.? Case has been reviewed in consultation with Dr. Plata who concurs with the above diagnosis. IDC:AM MICROSCOPIC DESCRIPTION Slides are reviewed. GROSS DESCRIPTION Received fresh for frozen section consultation labeled with the patient's name is a specimen designated left breast. The specimen consists of an oriented fragment of lumpectomy specimen measuring 2.5 x 2.3 x 1.6 cm and weighing 4.6 gm. The specimen is differentially inked as follows: anterior - yellow, posterior - black, superior - blue, inferior - green, medial - red and lateral - orange. No wire is identified. The specimen is serially sectioned to reveal homogenous dense, white, firm cut surfaces. No distinct mass lesion is seen. Approximately half of the specimen is submitted for frozen section consultation in three blocks, 1-3. The remainder of the specimen is submitted in cassettes 4-6 after additional fixation. / AM:sam 08/13/21 TC:5 CPT: 21214, 03619, 76437 x2
[2021-08-13 10:41] LABS: Bedside Glucose 152 mg/dL (70-110)
[2021-08-13 10:43] VITALS: BP 146/91; PULSE 63; RESP 18; TEMP 36.6; O2SAT 99; BMI 32.2
[2021-08-13] MEDS: Lactated Ringers 1,000 ML 100 ML IV (10:56)
--- NOTE | 2021-08-13 11:20 | HP.PCM_ITS ---
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 Is patient in pain?: No Allergies acetaminophen [From Vicodin] Allergy (Intermediate, Verified 08/07/21 13:49) SWELLING OF TONGUE doxycycline Allergy (Intermediate, Verified 08/07/21 13:49) EASH IN HANDS IN SUN escitalopram oxalate [From Lexapro] Allergy (Intermediate, Verified 08/07/21 13:49) UNSTABLE BP hydrocodone bitartrate [From Vicodin] Allergy (Intermediate, Verified 08/07/21 13:49) SWELLING OF TONGUE Penicillins Allergy (Intermediate, Verified 08/07/21 13:49) Hives VICOTUSS Allergy (Intermediate, Uncoded 08/07/21 13:49) SWELLING OF LIPS, TONGUE Medications aspirin 81 mg PO DAILY@0800 01/20/14 [History Confirmed 03/28/21] multivitamin with folic acid 1 tab PO DAILY 01/20/14 [History Confirmed 03/28/21] levothyroxine 75 mcg PO DAILY 07/22/14 [History Confirmed 03/28/21] calcium carbonate 500 mg (1,250 mg)-vitamin D3 200 unit tablet 1 tab PO BID 12/12/17 [History Confirmed 03/28/21] gabapentin 300 mg capsule 300 mg PO QHS cap 12/12/17 [History Confirmed 03/28/21] omeprazole 20 mg capsule,delayed release 20 mg PO .qod cap 06/28/20 [History Confirmed 03/28/21] metoprolol tartrate 25 mg tablet 12.5 mg PO BID #30 tab 10/03/20 [Rx Confirmed 03/28/21] atorvastatin 20 mg tablet 20 mg PO QHS 11/29/20 [History Confirmed 03/28/21] lactobacillus combination no.9 4 billion cell capsule 4,000 mmu cells PO DAILY 03/28/21 [History Confirmed 03/28/21] lisinopril 5 mg tablet 15 mg PO BID tab 03/28/21 [History Confirmed 03/28/21] nitroglycerin 0.4 mg sublingual tablet 0.4 mg SUBLINGUAL Q5M PRN #90 tab 03/28/21 [Rx Confirmed 03/28/21] omega-3 fatty acids 1,000 mg capsule 1,000 mg PO DAILY 03/28/21 [History Confir med 03/28/21] PFS Medical History Atherosclerotic heart disease of [place] coronary artery without angina pectoris CAD (coronary artery disease) Chest pain CKD (chronic kidney disease) stage 3, GFR 30-59 ml/min Essential hypertension Family history of CVA GERD (gastroesophageal reflux disease) GERD (gastroesophageal reflux disease) HLD (hyperlipidemia) Long-term use of high-risk medication Mass of right breast Mass of right breast Paroxysmal atrial fibrillation Paroxysmal atrial flutter PFO (patent foramen ovale) Shortness of breath Sinus bradycardia Syncope and collapse Type 2 diabetes mellitus Surgical History Aortocoronary bypass status (~01/20/14) History of bilateral cataract extraction History of breast biopsy History of foot surgery Hx of appendectomy Hx of CABG S/P CABG x 3 Family History Mother Diabetes CAD (coronary artery disease) Myocardial infarction PAD (peripheral artery disease) Father CAD (coronary artery disease) Myocardial infarction Lung cancer Brother CVA (cerebral vascular accident) CAD (coronary artery disease) Hx of CABG Diabetes Renal failure Son Sarcoma Sister Macular degeneration Hypertension Diabetes Type 2 Lewy body dementia Social History Smoking Status: Current every day smoker tobacco type: cigars per week: 7 Smokeless tobacco user: other alcohol intake: current alcohol intake frequency: a few times a month details: rare caffeine: No HPI HPI HPI: KEITH SUAZO, is a 65 M who presents to the office today for painful palpable left breast mass that was corroborated with ultrasound exam. They are referred from provider Dr. Jez Gotti. Based on ultrasound imaging criteria this was given a BI-RADS 4. This pain/mass was first noticed approximately 3 months ago while the patient was showering as he experienced pain in his left nipple. There is nipple discharge associated with this finding?patient states that just a couple of days ago he noticed a oily small-volume discharge from his nipple after showering. Mr. Campbell notes the following additional associated symptoms: New axillary tenderness, fatigue, decreased appetite. Patient has prior history of breast pathology. He has history of prior breast biopsy with Dr. Mixon on 03/02/2014. This was an excisional biopsy performed on the right breast that ultimately showed minimal duct ectasia potentially consistent with a subareolar lipoma. Patient has no first-degree relatives with breast cancer, but he readily admits his family history is quite complicated and believes there may have been a half-sister to his mother who had breast cancer. ROS General General: Yes fatigue; No weight change, appetite, colon cancer, breast cancer or weakness HEENT HEENT: Yes eye injury and eye surgery; No difficulty swallowing, swollen glands or hoarseness Endo Endocrine: Yes thyroid disease and diabetes mellitus; No thyroid cancer, Hair loss, heat intolerance or cold intolerance Skin Skin: No rash or changing moles Breast Breast: No left breast lump, right breast lump, nipple discharge, breast pain, abnormal mammogram, abnormal US or breast enlargement Musc Musculoskeletal: Yes back problems; No arthritis, rheumatoid arthritis, gout or joint pain Cardio Cardiovascular: Yes heart disease and high blood pressure; No murmur, pacemaker, atrial fibrillation, heart attack, heart stent, palpitations, shortness of breat with exertion or chest pain Psych Psychiatric: No depression, anxiety or hearing voices Resp Respiratory: No shortness of breath, No sleep apnea, No cough, No COPD, No asthma, No emphysema and No wheezing Gastro Gastrointestinal: No abdominal pain, No nausea or vomiting, No diarrhea, No constipation, No blood in stool, Yes acid reflux, Yes hemorrhoids, No ulcers, No gallbladder problem and No black,tarry stools Hieu Hematologic: No blood thinners, No blood disorders, No bleeding, No anemia and No blood clots Neuro Neurologic: No system reviewed and no additional complaints, except as documented, No as per HPI, No abnormal gait, No abnormal hearing, No abnormal movements, No abnormal speech, No behavioral changes, No burning sensations, No confusion, No convulsions, No disequilibrium, No dizziness, No localized weakness, No frequent falls, No headache(s), No lack of coordination, No loss of vision, No memory loss, No numbness, No other visual disturbances, No radicular pain, No restless legs, No sensory deficit, No syncope, No tingling, No tremor(s), No weakness and No other Exam Const General: cooperative, well developed and anxious Nutritional Appearance: well nourished and overweight Orientation: alert, awake and oriented x3 Chest Chest palpation & inspection: normal inspection of the chest (Symmetric subareolar folds) Breast inspection: normal inspection of the axillae Breast Palpation: Yes abnormal palpation of the breast (Left subareolar small (just greater than a cm), semimobile mass), Yes breast mass lrb: Left, No nipple discharge and No change in skin Other: Tenderness with exam of the nipple Assessment and Plan Assessment and Plan (1) Breast mass in male: Status: Acute Comment: Patient with mastodynia and a left breast mass measuring 1.2 cm x 1.1 cm x 0.9 cm in a retroareolar position in the left breast per ultrasound with BI-RADS 4. There is some associated clear discharge per the patient but this was not reproducible on exam. I performed an ultrasound in office today and the mass at its greatest depth is located just 6 mm beneath the skin. Given the paucity of breast tissue in this male breast and its superficial location, I determined that a core needle biopsy was rather unfeasible. Therefore we will plan for an excisional biopsy next week. Although the patient reports some tenderness in his left axilla, I am unable to appreciate any axillary adenopathy either with palpation or with quick ultrasound surveillance. Patient's prior biopsy/pathology results were consistent with benign duct ectasia. Plan - Dr. Torsten Mobley MD: ?Plan for excisional biopsy with intraoperative frozen section of left retroareolar breast mass. Further treatment plan pending pathology results. (2) Mastodynia of left breast: Status: Acute I have re-examined the patient. He states that he has had some recent difficulties with controlling his blood pressure. Yesterday systolic pressures exceeded 170 mmHg. However after taking his blood pressure medication he was in the 90s this morning. He continues to be anxious about going through this procedure. We also discussed that he has a history of keloiding and would like to use Kenalog to mitigate this risk as best as possible. Otherwise plan to proceed with a left breast excisional biopsy as previously discussed.
[2021-08-13] MEDS: Bupivacaine Mpf 0.5% 30 ML VIAL (12:09)
[2021-08-13] MEDS: Triamcinolone Acetonide 40 MG/ML Vial (12:33)
--- NOTE | 2021-08-13 12:46 | PCM.OPRPT ---
Problems Associated Problem List Diagnoses (1) Breast mass in male: (2) Mastodynia of left breast: Report of Operation Date of Procedure: 08/13/21 Pre-Operative Diagnosis: Subareolar left breast mass Post-Operative Diagnosis: Same Surgery/Procedure Performed:: Excisional biopsy of left breast mass Description of Surgical Findings:: - firm ~ 2cm area of breast tissue directly deep to the left areolar complex Surgeon: Torsten Mobley management accounts manager: Aida Benson Type of Anesthesia: General Anesthesiologist: Jez Cabrera Special Medications: Kenalogg 40mg/1mL Specimen's removed: Left breast tissue Drains: NA Estimated Blood Loss (mL): 10 Description of Procedure: After proper identification in the preoperative holding area, the patient was brought to the operating room where he was positioned supine. Our patient was administered preoperative antibiotics and underwent induction of general endotracheal anesthetic by anesthesia. Sequential compression devices were placed for VTE prophylaxis. The patient's left chest wall was then prepped and draped in usual sterile fashion. A formal timeout was conducted to confirm both the patient and the procedure. The procedure began with a local block using half percent bupivacaine. A circumareolar incision was made along the superior border of the nipple areolar complex on the left. This incision was deepened down to the subcutaneous layer with the use of electrocautery. At this point I switched to sharp dissection to avoid any electrical signature artifact from the electrocautery on our specimen. Sharp dissection was used to free the breast tissue from the underside of the areola. I then palpated the firm area directly beneath the nipple and circumferentially dissected this area from the surrounding softer breast tissue (taking a margin of normal breast tissue), again, with sharp dissection. The specimen was then oriented with marking stitches such that the superior and lateral margins were marked short superior, long lateral. Specimen was then amputated from the deep margin with electrocautery to help ensure hemostasis. The specimen was sent for frozen section and permanent histologic evaluation. Attention was then turned to obtaining hemostasis in the surgical bed using selective electrocautery and manual pressure. While awaiting the result of the frozen section, closure was begun. Given the patient's reports of keloid complications, I elected to locally infiltrate the skin edges with a total of 1 mL Kenalog. The wound was then approximated using 3-0 Vicryl in a deep dermal layer followed by 4-0 Monocryl as a subcuticular. Dermabond was applied as a dressing. The patient was then awoken from anesthetic without complication and a outer compressive dressing was applied to the surgical site. The patient was taken to PACU for ongoing recovery. Complications None Admit VTE Documentation VTE Present on Admission: Yes VTE Mechan Device Prophylaxis: SCD's Procedures Integumentary [id number]: [id number] Removal of breast lesion
--- NOTE | 2021-08-13 12:49 | EX.PCM.DISCH ---
Discharge Instructions Diet Discharge Diet: No restrictions Activity Discharge Activity: May Not Drive (Taking prescription pain medication) and May Shower Ice area for (Minutes): 20 Lifting Restrictions: Less than 15 pounds for the left upper extremity Dressing / Incision Call your doctor if your incision/area has: Increased Pain/ Swelling, Increased Redness and Swelling at the incision site Call your doctor if you observe: Fever of 101 or Higher, Coldness, Increased Pain and Numbness or Tingling Suture Line Care: Avoid Pulling/Pushing Change Dressing in: do not change dressing Cleanse incision/area with: Soap & Water Follow Up Care Please Follow Up With: Torsten Mobley MD When: In 2 weeks postop Test Results: Test results from this visit will be discussed in further detail at your follow-up appointment, if applicable. Discharge Plan Admission Primary Reason for Your Visit: Left breast mass/pain Attending Provider: Torsten Mobley Primary Care Provider: Jez Gotti Instructions Patient Instructions: Mastectomy Breast Lumpectomy Dc, ED Chest Pain, Noncardiac Discharge Orders/Prescriptions Prescriptions: New tramadol 50 mg tablet 50 mg PO Q6H PRN (Reason: pain) Qty: 14 RF: 0 Continued calcium carbonate-vitamin D3 [Os-Nazario 500 + D3] 500 mg(1,250mg) -200 unit tablet 1 tab PO BID RF: 0 omeprazole 20 mg capsule,delayed release(DR/EC) 20 mg PO .qod RF: 0 lisinopril 5 mg tablet 2.5 - 5 mg PO PRN PRN (Reason: BP) RF: 0 nitroglycerin 0.4 mg tablet, sublingual 0.4 mg sublingual Q5M PRN (Reason: chest pain) Qty: 90 RF: 0 aspirin 81 MG tablet,chewable 81 mg PO DAILY@0800 RF: 0 multivitamin with folic acid 1 TABLET tablet 1 tab PO DAILY RF: 0 levothyroxine 75 MCG tablet 88 mcg PO DAILY RF: 0 Vesepa 1 gm PO/SL BID RF: 0 metoprolol tartrate 25 mg tablet 12.5 mg PO BID Qty: 30 RF: 12 atorvastatin 20 mg tablet 20 mg PO QHS RF: 0 Referrals / Follow Up: Jez Gotti MD [Primary Care Provider] - Disposition Disposition (needs filled in before D/C Order can be placed): Home, Self Care
[2021-08-13 12:51] VITALS: BP 130/79; BP 146/91; PULSE 63; RESP 16; TEMP 36.2; O2SAT 92
[2021-08-13 13:00] VITALS: BP 139/79; BP 146/91; PULSE 61; RESP 16; O2SAT 93
[2021-08-13 13:15] VITALS: BP 125/75; BP 146/91; PULSE 58; RESP 16; O2SAT 93
[2021-08-13 13:30] VITALS: BP 124/81; BP 146/91; PULSE 57; RESP 16; TEMP 36.1; O2SAT 95
[2021-08-13 14:02] VITALS: BP 131/84; BP 146/91; PULSE 58; RESP 16; TEMP 36.5; O2SAT 91
== END 2021-08-13 14:03 | disposition home or self-care (01) ==
LOC: SDC 10:01 → AC 10:02
PROVIDERS: PCP Family Medicine; Referring Provider Surgery; Visit Provider Surgery
PROC: (CPT 19120; principal; 2021-08-13 11:30)
DX: N63.42 Unspecified lump in left breast, subareolar (principal); N64.4 Mastodynia; I25.10 Atherosclerotic heart disease of native coronary artery without angina pectoris; I12.9 Hypertensive chronic kidney disease with stage 1 through stage 4 chronic kidney disease, or unspecified chronic kidney disease; E11.22 Type 2 diabetes mellitus with diabetic chronic kidney disease; N18.30 Chronic kidney disease, stage 3 unspecified; I48.0 Paroxysmal atrial fibrillation; E78.5 Hyperlipidemia, unspecified; K21.9 Gastro-esophageal reflux disease without esophagitis; F17.290 Nicotine dependence, other tobacco product, uncomplicated; E66.3 Overweight; Z68.32 Body mass index [BMI] 32.0-32.9, adult; Z79.82 Long term (current) use of aspirin; Z79.890 Hormone replacement therapy; Z79.899 Other long term (current) drug therapy; Z95.1 Presence of aortocoronary bypass graft
CPT/HCPCS: 00400; 19120; 82962; 88305; 88307; 88331; 88332; J7120; J2405

== ENCOUNTER → 2021-09-04 13:16 | Outpatient (CLI) | payer MEDICARE, OTHER, SELFPAY ==
[2021-09-04 15:00] LABS: Absolute Neutrophil Count 7.2 X10^3/uL (2.0-7.7); Basophil# 0.06 X10^3/uL; Basophil% 0.6 % (0-1); Eosinophil# 0.22 X10^3/uL; Eosinophils% 2.3 % (0-5); Hematocrit 43.3 % (40-54); Lymphocyte % 13.4 % (19-41); Mean Corp Hgb Conc 34.6 g/dL (32-36); Mean Corpuscular Hgb 32.8 pg (27.0-32.0); Mean Corpuscular Volume 94.7 fL (80-94); Mean Platelet Vol. 9.5 fl (6.2-12.0); Monocyte# 0.85 X10^3/uL; Monocyte% 8.8 % (0-10); NRBC Flagged by Analyzer 0 % (0-5); Neutrophil # 7.19 X10^3/uL (2.7-7.7); Platelet Count 259 K/mm3 (150-450); RBC Distribution Width CV 12.1 % (11.6-14.6); RBC Distribution Width SD 42.2 fl (35.1-43.9); Red Blood Count 4.57 M/mm3 (4.6-6.2); White Blood Count 9.7 K/mm3 (4.4-11.0)
[2021-09-04 15:22] LABS: Vitamin D,25 Hydroxy 48.3 ng/mL
[2021-09-04 15:23] LABS: Hemoglobin A1c 6.7 % (3.8-5.6)
[2021-09-04 15:24] LABS: Microalbumin,Random Urine 35.8 mg/L (NO RANGE EST.); Microalbumin:Creatinine Ratio 14.1 mg/g CRE (<30 mg/g CRE)
[2021-09-04 15:28] LABS: ALB/GLOB Ratio 0.9 RATIO (0.9-2.4); AST(SGOT) 35 U/L (15-37); Alanine Aminotransfer ALT/SGPT 68 U/L (16-61); Albumin, Serum 3.6 g/dL (3.2-5.0); Alkaline Phosphatase 120 U/L (45-117); Anion Gap 10 (5-15); BUN 21 mg/dL (7-18); BUN/Creat Ratio 18.8 RATIO (10-20); Calcium,Total 8.8 mg/dL (8.5-10.1); Chloride 104 mmol/L (98-107); Cholesterol 131 mg/dL (200); Creatinine, Serum 1.12 mg/dL (0.70-1.30); EST Glomerular Filtration Rate 69 mL/min (>60); Est Glom Filt Rate - Afr Amer 84 mL/min (>60); Globulin 3.9 g/dL (2.2-4.2); Glucose 109 mg/dL (74-106); High Density Lipoprotein 36 mg/dL; Protein, Total 7.5 g/dL (6.4-8.2); Sodium Level 139 mmol/L (136-145); T4 Free Direct 1.11 ng/dL (0.76-1.46); Thyroid Stim Hormone (TSH) 2.62 uIU/mL (0.358-3.74); Triglycerides 223 mg/dL; Very Low Density Lipoprotein 45 mg/dL (5-40)
== END ==
LOC: LAB.FUTURE 13:17 → MTLAB 13:18
PROVIDERS: Internal Medicine Nephrology; PCP Family Medicine; Referring Provider Family Medicine; Visit Provider Family Medicine
DX: E11.22 Type 2 diabetes mellitus with diabetic chronic kidney disease (principal); N18.31 Chronic kidney disease, stage 3a; E11.69 Type 2 diabetes mellitus with other specified complication; I25.10 Atherosclerotic heart disease of native coronary artery without angina pectoris; I49.3 Ventricular premature depolarization; E03.8 Other specified hypothyroidism
CPT/HCPCS: 36415; 80053; 80061; 82043; 82306; 82570; 83036; 83735; 84439; 84443; 85025

== ENCOUNTER → 2021-09-14 | Outpatient (CLI) | payer MEDICARE, OTHER, SELFPAY | END | disposition home or self-care (01) | LOC: LABSPEC 12:24 | PROVIDERS: PCP Family Medicine; Referring Provider Surgery; Visit Provider Surgery | DX: L24.A9 Irritant contact dermatitis due friction or contact with other specified body fluids (principal) | CPT/HCPCS: 87070; 87075; 87077; 87186; 87205 ==

== ENCOUNTER 2021-10-17 08:56 | Outpatient (CLI) | payer MEDICARE, OTHER, SELFPAY ==
[2021-10-17 10:15] LABS: Absolute Lymphocyte Count 1.34 X10^3/uL (0.83-4.51); Absolute Neutrophil Count 5.5 X10^3/uL (2.0-7.7); Basophil# 0.08 X10^3/uL; Eosinophil# 0.28 X10^3/uL; Eosinophils% 3.5 % (0-5); Hematocrit 41.7 % (40-54); Hemoglobin 14.4 g/dL (13.0-16.5); Lymphocyte # 1.34 X10^3/ul (0.83-4.51); Lymphocyte % 16.8 % (19-41); Mean Corp Hgb Conc 34.5 g/dL (32-36); Mean Corpuscular Hgb 32.4 pg (27.0-32.0); Mean Corpuscular Volume 93.7 fL (80-94); Mean Platelet Vol. 9.8 fl (6.2-12.0); Monocyte# 0.67 X10^3/uL; Monocyte% 8.4 % (0-10); NRBC Flagged by Analyzer 0 % (0-5); Neutrophil # 5.47 X10^3/uL (2.7-7.7); Neutrophil % 68.4 % (47-70); Platelet Count 246 K/mm3 (150-450); RBC Distribution Width CV 12.2 % (11.6-14.6); RBC Distribution Width SD 42.2 fl (35.1-43.9); Red Blood Count 4.45 M/mm3 (4.6-6.2)
[2021-10-17 10:41] LABS: Hemoglobin A1c 7.1 % (3.8-5.6)
[2021-10-17 10:50] LABS: Microalbumin,Random Urine 67.5 mg/L (NO RANGE EST.); Microalbumin:Creatinine Ratio 37.1 mg/g CRE (<30 mg/g CRE)
[2021-10-17 11:12] LABS: ALB/GLOB Ratio 1.1 RATIO (0.9-2.4); AST(SGOT) 37 U/L (15-37); Alanine Aminotransfer ALT/SGPT 66 U/L (16-61); Albumin, Serum 3.7 g/dL (3.2-5.0); Alkaline Phosphatase 181 U/L (45-117); Anion Gap 9 (5-15); BUN 21 mg/dL (7-18); BUN/Creat Ratio 18.6 RATIO (10-20); Calcium,Total 9.2 mg/dL (8.5-10.1); Chloride 103 mmol/L (98-107); Cholesterol 159 mg/dL (200); Creatinine, Serum 1.13 mg/dL (0.70-1.30); EST Glomerular Filtration Rate 69 mL/min (>60); Est Glom Filt Rate - Afr Amer 83 mL/min (>60); Globulin 3.5 g/dL (2.2-4.2); Glucose 154 mg/dL (74-106); High Density Lipoprotein 32 mg/dL; Magnesium 2.1 mg/dL (1.6-2.6); Potassium 4.3 mmol/L (3.5-5.1); Protein, Total 7.2 g/dL (6.4-8.2); Sodium Level 138 mmol/L (136-145); T4 Free Direct 1.09 ng/dL (0.76-1.46); Thyroid Stim Hormone (TSH) 2.21 uIU/mL (0.358-3.74); Triglycerides 407 mg/dL
== END 2021-10-17 23:59 | disposition home or self-care (01) ==
LOC: MFPLAB 08:57
PROVIDERS: PCP Family Medicine; Referring Provider Family Medicine; Visit Provider Family Medicine
DX: Z00.00 Encounter for general adult medical examination without abnormal findings (principal)
CPT/HCPCS: 36415; 80053; 80061; 82043; 82570; 83036; 83735; 84439; 84443; 85025

== ENCOUNTER 2022-01-14 10:10 | Outpatient (CLI) | payer MEDICARE, OTHER, SELFPAY ==
[2022-01-14 10:25] LABS: Bacteria 0 SEEN /hpf (None Seen); Mucous, Urine 0 SEEN /hpf (<or=2+); Red Blood Cells-Urine 0 SEEN /hpf (0-5); Squamous Epithelial Cells - UA 0 SEEN /hpf (0-5); White Blood Cells 0 SEEN /hpf (0-5)
[2022-01-14 11:54] LABS: Absolute Lymphocyte Count 1.29 X10^3/uL (0.83-4.51); Absolute Neutrophil Count 5.6 X10^3/uL (2.0-7.7); Basophil# 0.08 X10^3/uL; Eosinophil# 0.27 X10^3/uL; Eosinophils% 3.4 % (0-5); Hematocrit 44.6 % (40-54); Lymphocyte # 1.29 X10^3/ul (0.83-4.51); Lymphocyte % 16.2 % (19-41); Mean Corp Hgb Conc 33.6 g/dL (32-36); Mean Corpuscular Hgb 32.4 pg (27.0-32.0); Mean Corpuscular Volume 96.3 fL (80-94); Mean Platelet Vol. 9.3 fl (6.2-12.0); Monocyte% 7.5 % (0-10); NRBC Flagged by Analyzer 0 % (0-5); Neutrophil # 5.63 X10^3/uL (2.7-7.7); Neutrophil % 70.8 % (47-70); Platelet Count 238 K/mm3 (150-450); RBC Distribution Width CV 12.6 % (11.6-14.6); RBC Distribution Width SD 44.8 fl (35.1-43.9); Red Blood Count 4.63 M/mm3 (4.6-6.2)
[2022-01-14 11:57] LABS: Glucose, Dipstick 1000 mg/dl (Normal); Ketone-Dipstick Negative (Negative); Leukocyte Esterase-Dipstick Negative /ul (Negative); Nitrite-Dipstick Negative (Negative); Occult Blood-Urine Negative /ul (Negative); Protein-Dipstick 15 mg/dl (Negative); Specific Gravity, Urine 1.015 (1.002-1.030); Urine Bilirubin Dipstick Negative (Negative); Urine Urobilinogen Normal (Normal)
[2022-01-14 11:59] LABS: Color, Urine Yellow (Yellow); Urine Clarity Clear (Clear)
[2022-01-14 12:28] LABS: Microalbumin,Random Urine 42.2 mg/L (NO RANGE EST.); Microalbumin:Creatinine Ratio 64.8 mg/g CRE (<30 mg/g CRE); Protein, Urine (Random) 18.7 mg/dL (<11.9); Protein:Creat Ratio 287 mg/g CRE (0-200)
[2022-01-14 13:01] LABS: Hemoglobin A1c 7.5 % (3.8-5.6)
[2022-01-14 13:03] LABS: AST(SGOT) 55 U/L (15-37); Alanine Aminotransfer ALT/SGPT 72 U/L (16-61); Albumin, Serum 3.9 g/dL (3.2-5.0); Alkaline Phosphatase 178 U/L (45-117); Anion Gap 9 (5-15); BUN 18 mg/dL (7-18); Calcium,Total 8.9 mg/dL (8.5-10.1); Chloride 102 mmol/L (98-107); Cholesterol 144 mg/dL (200); EST Glomerular Filtration Rate 64 mL/min (>60); Est Glom Filt Rate - Afr Amer 77 mL/min (>60); Globulin 3.8 g/dL (2.2-4.2); Glucose 150 mg/dL (74-106); High Density Lipoprotein 34 mg/dL; Protein, Total 7.7 g/dL (6.4-8.2); Sodium Level 133 mmol/L (136-145); Thyroid Stim Hormone (TSH) 3.74 uIU/mL (0.358-3.74); Triglycerides 318 mg/dL; Very Low Density Lipoprotein 64 mg/dL (5-40)
== END 2022-01-14 23:59 | disposition home or self-care (01) ==
LOC: MTLAB 10:12
PROVIDERS: PCP Family Medicine; Referring Provider Family Medicine; Visit Provider Family Medicine
DX: E11.69 Type 2 diabetes mellitus with other specified complication (principal); E11.22 Type 2 diabetes mellitus with diabetic chronic kidney disease; N18.30 Chronic kidney disease, stage 3 unspecified; E03.8 Other specified hypothyroidism
CPT/HCPCS: 36415; 80053; 80061; 81001; 82043; 82570; 83036; 84156; 84439; 84443; 85025

== ENCOUNTER 2022-01-24 08:52 | Outpatient (CLI) | payer MEDICARE, OTHER, SELFPAY ==
[2022-01-24 11:57] LABS: Hepatitis C Antibody Non-Reactive (Nonreactive)
== END 2022-01-24 23:59 | disposition home or self-care (01) ==
LOC: MFPLAB 08:56
PROVIDERS: PCP Family Medicine; Referring Provider Family Medicine; Visit Provider Family Medicine
DX: R79.89 Other specified abnormal findings of blood chemistry (principal)
CPT/HCPCS: 36415; 86803

== ENCOUNTER 2022-01-30 09:45 | Outpatient (CLI) | payer MEDICARE, OTHER, SELFPAY ==
--- NOTE | 2022-01-30 09:47 | US_ITS ---
STUDY: ABDOMINAL ULTRASOUND - RIGHT UPPER QUADRANT REASON FOR VISIT: Male, 66 years old elevated lft, ?fatty liver TECHNIQUE: Ultrasound evaluation of the right upper quadrant was performed with real-time and static cabrera-scale imaging. TECHNICAL QUALITY: Adequate. COMPARISON: None. FINDINGS: Liver: The liver measures 21.5 cm. There is increased echogenicity consistent with fatty infiltration. The bile ducts are within normal limits. There is hepatic color flow. The direction of portal flow is hepatopetal. There is no demonstrated mass lesion. Gallbladder: Normal distended gallbladder. The gallbladder wall measures 2 mm. There is a negative sonographic Barrett''s sign. There is no pericholecystic fluid. There is biliary sludge dependent within the gallbladder. Common Bile Duct (C.B.D.): The common bile duct measures 5 mm. Pancreas: Normal size of the head, body and tail of the pancreas. There is normal echogenicity of the pancreas. There is no demonstrated pancreatic mass or cyst. Right Kidney: Normal size of the right kidney. The right kidney measures 12.4 cm. Normal renal cortex. The right cortex measures 1.6 cm. There is no demonstrated renal mass or cyst. There is no right hydronephrosis. US/Abdomen Limited IMPRESSION: 1. Gallbladder sludge. 2. Fatty infiltration of the liver. Electronically Signed: Gatrh Schwartz MD at 14:38 EST ,
== END 2022-01-30 23:59 | disposition home or self-care (01) ==
LOC: US 09:46
PROVIDERS: PCP Family Medicine; Referring Provider Family Medicine; Visit Provider Family Medicine
DX: R79.89 Other specified abnormal findings of blood chemistry (principal)
CPT/HCPCS: 76705

== ENCOUNTER 2022-02-25 16:22 | Outpatient (CLI) | payer MEDICARE, OTHER, SELFPAY ==
[2022-02-25 18:14] LABS: Anion Gap 8 (5-15); BUN 32 mg/dL (7-18); BUN/Creat Ratio 23.4 RATIO (10-20); Calcium,Total 9.4 mg/dL (8.5-10.1); Chloride 101 mmol/L (98-107); Creatinine, Serum 1.37 mg/dL (0.70-1.30); EST Glomerular Filtration Rate 55 mL/min (>60); Est Glom Filt Rate - Afr Amer 66 mL/min (>60); Glucose 168 mg/dL (74-106); Potassium 4.5 mmol/L (3.5-5.1); Sodium Level 135 mmol/L (136-145)
== END 2022-02-25 23:59 | disposition home or self-care (01) ==
PROVIDERS: PCP Family Medicine; Referring Provider Internal Medicine Nephrology; Visit Provider Internal Medicine Nephrology
DX: I10 Essential (primary) hypertension (principal)
CPT/HCPCS: 36415; 80048

== ENCOUNTER 2022-02-26 10:38 | Outpatient (CLI) | payer MEDICARE, OTHER, SELFPAY ==
[2022-02-27 13:08] LABS: DHEA Sulfate 27.5 ug/dL (30.9-295.6)
[2022-02-27 14:15] LABS: Adrenocorticotropic Hormone 21.3 pg/mL (7.2-63.3)
== END 2022-02-26 23:59 | disposition home or self-care (01) ==
LOC: POLAB3 10:39
PROVIDERS: PCP Family Medicine; Visit Provider Internal Medicine Nephrology
DX: I10 Essential (primary) hypertension (principal)
CPT/HCPCS: 36415; 82024; 82627; 82626

== ENCOUNTER 2022-02-27 07:54 | Outpatient (CLI) | payer MEDICARE, OTHER, SELFPAY | END 2022-02-27 23:59 | disposition home or self-care (01) | LOC: MTLAB 07:55 | PROVIDERS: PCP Family Medicine; Referring Provider Internal Medicine Nephrology; Visit Provider Internal Medicine Nephrology | DX: I10 Essential (primary) hypertension (principal) | CPT/HCPCS: 36415; 82533 ==

== ENCOUNTER → 2022-04-03 | Outpatient (CLI) | payer MEDICARE, OTHER, SELFPAY ==
[2022-04-03 14:59] LABS: Absolute Lymphocyte Count 0.99 X10^3/uL (0.83-4.51); Basophil# 0.07 X10^3/uL; Basophil% 0.9 % (0-1); Eosinophil# 0.29 X10^3/uL; Eosinophils% 3.6 % (0-5); Hematocrit 44.7 % (40-54); Lymphocyte # 0.99 X10^3/ul (0.83-4.51); Lymphocyte % 12.4 % (19-41); Mean Corp Hgb Conc 33.6 g/dL (32-36); Mean Corpuscular Hgb 30.9 pg (27.0-32.0); Mean Corpuscular Volume 92.2 fL (80-94); Mean Platelet Vol. 9.5 fl (6.2-12.0); Monocyte% 7.5 % (0-10); NRBC Flagged by Analyzer 0 % (0-5); Neutrophil # 5.96 X10^3/uL (2.7-7.7); Neutrophil % 74.4 % (47-70); Platelet Count 254 K/mm3 (150-450); RBC Distribution Width CV 13.3 % (11.6-14.6); RBC Distribution Width SD 45.4 fl (35.1-43.9); Red Blood Count 4.85 M/mm3 (4.6-6.2)
[2022-04-03 15:19] LABS: Microalbumin,Random Urine 8.5 mg/L (NO RANGE EST.); Microalbumin:Creatinine Ratio 14.3 mg/g CRE (<30 mg/g CRE); Protein, Urine (Random) 8.5 mg/dL (<11.9); Protein:Creat Ratio 143 mg/g CRE (0-200)
[2022-04-03 15:25] LABS: Hemoglobin A1c 8.4 % (3.8-5.6)
[2022-04-03 15:38] LABS: AST(SGOT) 97 U/L (15-37); Alanine Aminotransfer ALT/SGPT 85 U/L (16-61); Albumin, Serum 3.8 g/dL (3.2-5.0); Alkaline Phosphatase 163 U/L (45-117); Anion Gap 9 (5-15); BUN 22 mg/dL (7-18); BUN/Creat Ratio 15.7 RATIO (10-20); Calcium,Total 8.8 mg/dL (8.5-10.1); Chloride 102 mmol/L (98-107); Cholesterol 145 mg/dL (200); EST Glomerular Filtration Rate 54 mL/min (>60); Est Glom Filt Rate - Afr Amer 65 mL/min (>60); Globulin 3.8 g/dL (2.2-4.2); Glucose 219 mg/dL (74-106); High Density Lipoprotein 27 mg/dL; Potassium 4.1 mmol/L (3.5-5.1); Protein, Total 7.6 g/dL (6.4-8.2); Sodium Level 135 mmol/L (136-145); T4 Free Direct 1.05 ng/dL (0.76-1.46); Thyroid Stim Hormone (TSH) 4.13 uIU/mL (0.358-3.74); Triglycerides 516 mg/dL
[2022-04-03 15:54] LABS: Magnesium 2.3 mg/dL (1.6-2.6)
== END | disposition home or self-care (01) ==
PROVIDERS: Physician Assistant Medical; PCP Family Medicine; Visit Provider Internal Medicine Nephrology
DX: E11.22 Type 2 diabetes mellitus with diabetic chronic kidney disease (principal); I48.92 Unspecified atrial flutter; N18.31 Chronic kidney disease, stage 3a; I49.3 Ventricular premature depolarization
CPT/HCPCS: 36415; 80053; 80061; 82043; 82570; 83036; 83735; 84156; 84439; 84443; 85025

== ENCOUNTER → 2022-04-24 | Outpatient (CLI) | payer MEDICARE, OTHER, SELFPAY ==
--- NOTE | 2022-04-24 11:25 | RAD_ITS ---
STUDY: XR Chest 2 Views 04/24/2022 11:29 AM REASON FOR EXAM: Male, 66 years old. CHEST PAIN Technologist Notes pt is having a heart cath done on Friday, hx of atherosclerotic heart disease, and ventricular tachycardia. PRE PROCEDURE COMPARISON: 02/27/2016 TECHNIQUE: XR Chest 2 Views FINDINGS: There is no demonstrated pleural abnormality. There are multiple median sternotomy wires. Normal heart size. Normal mediastinum. Normal esteban. Prominent appearing increased interstitial lung markings. Normal visualized pulmonary arteries. There is atherosclerotic calcification of the aortic arch with tortuosity. There are diffuse degenerative changes of the visualized thoracic spine. There is degenerative osteoarthritis of the bilateral shoulders. There is no demonstrated abnormality of the visualized soft tissue structures of the upper abdomen. RAD/Chest PA and Lateral IMPRESSION: There are no acute findings. Electronically Signed: Jose Leblanc MD at 17:19 EDT ,
[2022-04-24 15:22] LABS: International Normalized Ratio 1.1; Prothrombin Time (Protime)PT. 13.5 SECONDS (11.7-14.9)
[2022-04-24 15:23] LABS: Partial Thromboplast Time 36.7 Seconds (24.1-36.2)
== END | disposition home or self-care (01) ==
LOC: MTLAB 11:22
PROVIDERS: PCP Family Medicine; Referring Provider Physician Assistant Medical; Visit Provider Physician Assistant Medical
DX: Z01.818 Encounter for other preprocedural examination (principal); I47.2 Ventricular tachycardia; I25.10 Atherosclerotic heart disease of native coronary artery without angina pectoris; R07.9 Chest pain, unspecified; Z95.1 Presence of aortocoronary bypass graft
CPT/HCPCS: 36415; 71046; 85610; 85730

== ENCOUNTER 2022-05-01 07:03 | Day surgery (SDC) | payer MEDICARE, OTHER, SELFPAY ==
[2022-04-30 07:27] VITALS: BMI 33.5
--- NOTE | 2022-04-30 17:25 | PCM.HP.BLA ---
History and Physical Date of Admission: 05/01/22 [facility] [address] [place] [address] [phone] OFFICE VISITDate of Service: 04/03/22 MR#:[id number]:[id number]: KEITH SUAZO [facility] #:[id number]:1955 Provider: MYRNA Samano/Sex: 66/M [facility] [place]Signed HPI HPI History of Present Illness Details: KEITH SUAZO, is a 66 year old white male who presents to the office today for concerns over palpitations. He does have a history of coronary artery disease status post bypass surgery in December 2013 with GARCIA to LCx, SVG to LAD, and SVG to RCA, paroxysmal atrial fibrillation, hypertension, and hyperlipidemia. Pt sts that his Bp still fluctuates. This has been managed by Dr. Lacey. He did have a breast lumpectomy done, this was negative. Unfortunately he developed an infection with this and needed to have this packed. His biggest concern is palpitations. He notes that last week he had an increase in palpations. He is not sure if this is related to PACs/PVC. Intake Vital Signs 04/03/22 13:32 Height 5 ft 6 in Weight: 208 lb BMI 33.5 Intake Visit Reasons: PALPITATIONS Allergies acetaminophen [From Vicodin] Allergy (Intermediate, Verified 10/22/21 08:17) SWELLING OF TONGUE doxycycline Allergy (Intermediate, Verified 10/22/21 08:17) EASH IN HANDS IN SUN escitalopram oxalate [From Lexapro] Allergy (Intermediate, Verified 10/22/21 08:17) UNSTABLE BP hydrocodone bitartrate [From Vicodin] Allergy (Intermediate, Verified 10/22/21 08:17) SWELLING OF TONGUE Penicillins Allergy (Intermediate, Verified 10/22/21 08:17) Hives hydrocodone Allergy (Verified 10/22/21 08:17) Swelling VICOTUSS Allergy (Intermediate, Uncoded 10/22/21 08:17) SWELLING OF LIPS, TONGUE Medications aspirin 81 mg PO DAILY@0800 01/20/14 [History Confirmed 04/03/22] multivitamin with folic acid 1 tab PO DAILY 01/20/14 [History Confirmed 04/03/22] levothyroxine 88 mcg PO DAILY 07/22/14 [History Confirmed 04/03/22] calcium carbonate 500 mg-vitamin D3 5 mcg (200 unit) tablet 1 tab PO BID 12/12/17 [History Confirmed 04/03/22] omeprazole 20 mg capsule,delayed release 20 mg PO .qod cap 06/28/20 [History Confirmed 04/03/22] metoprolol tartrate 25 mg tablet 12.5 mg PO BID #30 tab 10/03/20 [Rx Confirmed 04/03/22] atorvastatin 20 mg tablet 20 mg PO QHS 11/29/20 [History Confirmed 04/03/22] nitroglycerin 0.4 mg sublingual tablet 0.4 mg SUBLINGUAL Q5M PRN #90 tab 03/28/21 [Rx Confirmed 04/03/22] amlodipine 5 mg tablet 5 mg PO DAILY tab 04/03/22 [History Confirmed 04/03/22] empagliflozin 25 mg tablet 25 mg PO DAILY 04/03/22 [History Confirmed 04/03/22] icosapent ethyl 1 gram capsule 2 g PO BID 04/03/22 [History Confirmed 04/03/22] lisinopril 30 mg tablet 30 mg PO QHS tab 04/03/22 [History Confirmed 04/03/22] [facility] Medical History Alcohol use Atherosclerotic heart disease of [place] coronary artery without angina pectoris Back pain CAD (coronary artery disease) CAD (coronary artery disease) Cardiology follow-up encounter Chest pain Chronic cough CKD (chronic kidney disease) stage 3, GFR 30-59 ml/min Diabetes Essential hypertension Family history of CVA Gastric reflux GERD (gastroesophageal reflux disease) GERD (gastroesophageal reflux disease) High cholesterol History of atrial fibrillation History of echocardiogram History of ganglion cyst History of irregular heartbeat History of renal disease History of rheumatic fever History of stress test HLD (hyperlipidemia) Hypertension Long-term use of high-risk medication Mass of right breast Mass of right breast Paroxysmal atrial fibrillation Paroxysmal atrial flutter PFO (patent foramen ovale) Shortness of breath Shortness of breath on exertion Sinus bradycardia Smoker Syncope and collapse Thyroid disease TIA (transient ischemic attack) Type 2 diabetes mellitus Wears glasses Surgical History Aortocoronary bypass status (~01/20/14) History of bilateral cataract extraction History of breast biopsy History of breast lump/mass excision History of cardiac catheterization History of foot surgery Hx of appendectomy Hx of arthroplasty Hx of CABG S/P CABG x 3 Family History Mother Diabetes CAD (coronary artery disease) Myocardial infarction PAD (peripheral artery disease) Father CAD (coronary artery disease) Myocardial infarction Lung cancer Brother CVA (cerebral vascular accident) CAD (coronary artery disease) Hx of CABG Diabetes Renal failure Son Sarcoma Sister Macular degeneration Hypertension Diabetes Type 2 Lewy body dementia Social History Smoking Status: Current every day smoker tobacco type: cigars per week: 7 Smokeless tobacco user: other alcohol intake: current alcohol intake frequency: a few times a month details: rare caffeine: No ROS Const Const: Negative for fatigue, weakness, headache(s), frequent falls, excessive sweating, weight gain or weight loss Eyes Eyes: Negative for blind spots, loss of peripheral vision, transient loss of vision, blurry vision, change in vision or double vision ENT ENT: Negative for headache(s), dizziness, tinnitus, Nosebleed/epistaxis or balance problems Cardio Chest Pain: No Palpitations: Yes Edema: None Muscle aches with walking: None Resp Respiratory: Negative for SOB with activity, SOB at rest, SOB orthopnea\SOB lying down or Cough GI GI: Negative nausea, vomiting, heartburn, bloating, vomiting blood/hematemesis, bright, red blood in stools or black,tarry stools : Negative for hematuria Musc Musc: Negative for muscle aches/ myalgia, muscle weakness, joint pain or balance problems Skin Skin: Negative rash or wounds Neuro Neuro: Negative for dizziness, lightheadedness, near syncope, syncope, orthostatic symptoms, frequent falls, headache(s), weakness, confusion, memory loss, restless legs, blurry vision or double vision Hieu Hematologic/Lymphatic: Negative for easy bleeding or easy bruising Endo Endo: Negative for fatigue, cold intolerance, heat intolerance or excessive sweating Psych Psych: Negative for anxiety or depression Allergy Allergy/Immunology: Negative for rash Cardiology Exam Const Appearance: cooperative, healthy appearing, comfortable, no acute distress, well developed and well groomed Nutritional Appearance: overweight Orientation: alert, awake and oriented x3 Head Head: normal to inspection, normocephalic and atraumatic Ears: hearing grossly normal bilaterally Nose: external nose normal Face and Sinus: face symmetric Eyes Eyelids: eyelids normal Conjunctivae: conjunctivae normal Pupils: PERRL EOM: EOM intact bilaterally Neck Neck: normal visual inspection and full ROM Carotids: normal carotid upstroke Chest Chest inspection: normal inspection of the chest, symmetric chest movement and normal respiratory effort Auscultation: Bilateral: Clear to Auscultation Cardio Palpation: normal PMI Rate: regular rate Rhythm: regular rhythm Heart sounds: S1 normal and S2 normal GI GI: normal to inspection, soft and bowel sounds present Neuro General: patient alert, patient awake, patient oriented x3, gait normal and moves all extremities Skin Skin: no rashes or lesions noted Extremities Pulses: Normal: Right Radial Pulse and Left Radial Pulse Lower Extremity Edema: None: Bilateral Psych Psychological: normal affect Supplemental Info Supplemental Information Transthoracic echocardiogram: 05/17/2020 Interpretation Summary The study was technically difficult. Contrast injection was performed. Segmental dysfunction with preserved ejection fraction (see wall motion). The estimated ejection fraction is 60 %. Post operative septal motion. Mild-Moderate (1-2+) mitral valve insufficiency. Trivial tricuspid valve insufficiency. Mild focal aortic valve thickening. Right ventricular systolic pressure estimated to be 35 mmHg. Diastolic function is indeterminate. Stress Test Report Date: 03-26-2021 Procedure: Pharmacologic stress nuclear imaging study Indications: Chest pain; CAD; CABG paroxysmal atrial dysrhythmia Consent: Per the patient Procedure: The patient underwent pharmacologic (Regadenoson 0.4mg ) evaluation with a peak heart rate of 115 beats per minute (75%predicted maximal heart rate) and a peak blood pressure of 160/98 mmHg. The baseline ECG demonstrated sinus rhythm. The peak pharmacologic ECG demonstrated no obvious ECG changes. There were no cardiac dysrhythmias pretest, during pharmacologic infusion, or recovery. There was no complaint of chest discomfort during pharmacologic infusion or recovery. The examination was discontinued secondary to completion of protocol. Impression: 1. Pharmacologic (Regadenoson) evaluation 2. Peak pharmacologic ECG with no obvious ECG changes. 3. There were no cardiac dysrhythmias pretest, during pharmacologic infusion, or recovery. 4. Nuclear images pending Myocardial perfusion imaging study: Technique: The patient was injected with 14.1 millicuries of technetium 99m Cardiolite and subsequently rest SPECT Cardiolite nuclear imaging was obtained in the horizontal long, vertical long, and short axis views. The patient underwent pharmacologic (Regadenoson) evaluation with a peak heart rate of 115 beats per minute (75% percent predicted maximal heart rate) and a peak blood pressure of 160/98 mmHg. The patient was injected with 44.6 millicuries oftechnetium 99m Cardiolite and subsequently stress SPECT Cardiolite nuclear imaging was obtained in the horizontal long, vertical long, and short axis views. A gated Cardiolite study at peak stress was obtained. Interpretation: Rest and stress SPECT Cardiolite nuclear imaging status post realignment, normalization, and attenuation correction demonstrate relative uniform tracer uptake and myocardial perfusion appearing within normal limits. There is end systolic thickening and brightening. The gated Cardiolite study demonstrates myocardial thickening and inward wall motion. The reported LVEF is 72%. Impression: 1. Rest and stress SPECT Cardiolite nuclear imaging demonstrate relative uniform tracer uptake and myocardial perfusion appearing within normal limits. 2. The gated Cardiolite study reports an LVEF of 72%. 24-hour Holter monitor from 01/12/2019: Normal sinus rhythm with first-degree AV block. Average heart rate 53 bpm. Minimal heart rate of 40 bpm. Maximum heart of 72 bpm. Longest R-R interval 1.5 seconds. Ventricular ectopy of 0.0%. Supraventricular ectopy of 0.0%. The patient kept a diary with multiple symptoms of feeling palpitations, which at times correlated with scan. Holter: 48-hour: 09/2020: Sinus rhythm: Rare PAC/PVC: No narrow or wide complex runs: Palpitations appear to correlate with the underlying rare ectopy: Average heart rate of 52 bpm. 30-day event monitor from November 2014 showed basic rhythm of sinus with first-degree AV block and rates from 44-72 bpm, 1 PAC noted, occasional PVCs, and patient's symptoms correlated with sinus bradycardia/sinus rhythm and a first-degree AV block and PAC and PVCs. Labs: LDL Cholesterol 46 mg/dL (0-130) HDL Cholesterol 34 mg/dL (40-) L Triglycerides 318 mg/dL (-199) H VLDL Cholesterol 64 mg/dL (5-40) H Diagnostics: Abdomen US Pulmonary: No Data to Display Assessment and Plan Assessment and Plan (1) Atherosclerosis of [place] coronary artery of [place] heart without angina pectoris: Status: Chronic Comment: December 2013 with GARCIA to LCx, SVG to LAD, and SVG to RCA; Plan: Patient does not have any symptoms of angina. We will continue with current medical management. (2) Hx of CABG: Status: Chronic Comment: December 2013 with GARCIA to LCx, SVG to LAD, and SVG to RCA (3) PVC (premature ventricular contraction): Status: Chronic Orders: Orders: Magnesium Today Echo Complete Today 30 Day Event Recorder Preventi Today Plan: With patient's increased in palpitations would like to repeat a 30-day event monitor to reevaluate what type of arrhythmia that he is having would also like to obtain an echocardiogram to evaluate for any structural abnormalities contributing to his irregular heartbeats, will also obtain CBC, BMP, thyroid and magnesium. For now he will continue with his current low-dose metoprolol. Hesitant to increase this as in the past has had bradycardia. (4) Paroxysmal atrial flutter: Status: Chronic Orders: Orders: Magnesium Today Echo Complete Today 30 Day Event Recorder Preventi Today Plan: With patient's increased in palpitations would like to repeat a 30-day event monitor to reevaluate what type of arrhythmia that he is having would also like to obtain an echocardiogram to evaluate for any structural abnormalities contributing to his irregular heartbeats, will also obtain CBC, BMP, thyroid and magnesium. For now he will continue with his current low-dose metoprolol. Hesitant to increase this as in the past has had bradycardia. (5) HLD (hyperlipidemia): Status: Chronic Qualifiers: Hyperlipidemia type: unspecified Qualified Code(s): E78.5 - Hyperlipidemia, unspecified Plan: Patient will continue with current dose of statin in addition to his Vascepa. (6) Essential hypertension: Status: Chronic Plan: Blood pressures have been managed by nephrology. Adequately controlled today. Plan Details Other Orders: Orders: Echo Complete Today R06.02 Additional Comments: Thank you for allowing me to participate in the care of your patient. Please don't hesitate to call if any issues arise. This note was generated using a voice recognition system and there may be incorrect words, spelling or punctuation that were not noted when reviewing the office note prior to saving. Follow Up: 2 Months (mmm) Coding Level of Care Code Off vis,est,level 4 Diagnoses Atherosclerosis of [place] coronary artery of [place] heart without angina pectoris I25.10 Hx of CABG Z95.1 PVC (premature ventricular contraction) I49.3 Paroxysmal atrial flutter I48.92 HLD (hyperlipidemia) E78.5 Hyperlipidemia type: unspecified Essential hypertension I10 Coding Level of Care Code Off vis,est,level 4 Diagnoses Atherosclerosis of [place] coronary artery of [place] heart without angina pectoris I25.10 Hx of CABG Z95.1 PVC (premature ventricular contraction) I49.3 Paroxysmal atrial flutter I48.92 HLD (hyperlipidemia) E78.5 Hyperlipidemia type: unspecified Essential hypertension I10 04/03/22 1438<Electronically signed by Reshma NORRIS>Date Reshma NORRIS Cosigner Signature:Date (if applicable) CC: Dr. Jez Gotti MD ~ Assessment & Plan Addt'l Comments Addendum: 30-day event monitor: Demonstrating findings of sinus rhythm as well as findings of ventricular tachycardia reported as lasting approximately 7 seconds in duration. Case reviewed. Based upon the patient's cardiovascular history/concerns and the aforementioned objective findings consideration was given to further definitive evaluation of the patient's coronary/graft status with diagnostic cardiac catheterization. The procedure and risk were discussed with the patient. He was agreeable to this approach. I have re-examined the patient. There are no clinical changes since date of exam This note was generated using a voice recognition system and there may be incorrect words, spelling or punctuation that were not noted when reviewing the office note prior to saving.
--- NOTE | 2022-05-01 08:07 | ECHOD_ITS ---
Reason For Study: CAD, SOB Procedure This was a 2D Doppler, Color Flow transthoracic echocardiogram. The study was technically difficult. Exam performed in department. Left Ventricle Normal LV size. Left ventricular systolic function is normal. The estimated ejection fraction is 60 %. No evidence for diastolic dysfunction. No regional wall motion abnormalities noted. Right Ventricle Normal RV size. Normal systolic function. Atria Normal left atrium. Normal right atrium. No doppler evidence for ASD. Mitral Valve There is no mitral annular calcification. Normal mitral valve. Trivial mitral valve insufficiency. Tricuspid Valve Normal tricuspid valve. Trivial tricuspid valve insufficiency. Right ventricular systolic pressure estimated to be 26 mmHg. Aortic Valve Trisinus/trileaflet aortic valve. Mild focal aortic valve calcification. Pulmonic Valve The pulmonic valve is not well visualized. Trivial pulmonic valve insufficiency. Great Vessels Normal sized aortic root. Calcified aortic root. Pericardium/Pleural No pericardial effusion. MMode/2D Measurements & Calculations LVIDd: 4.8 cm IVSd: 0.97 cm Ao root diam: 3.2 cm LVIDs: 2.5 cm LVPWd: 1.0 cm RVDd: 3.3 cm FS: 47.7 % LAV(MOD-bp): 63.2 ml LVAd ap4: 32.1 cm2 LVAd ap2: 27.6 cm2 LAV(MOD-bp) Indexed: 31.2 ml/m2 LVLd ap4: 9.0 cm LVLd ap2: 8.6 cm LAV(MOD-sp2): 56.3 ml EDV(MOD-sp4): 93.0 ml EDV(MOD-sp2): 71.9 ml LAV(MOD-sp4): 58.6 ml EDV(sp4-el): 97.0 ml EDV(sp2-el): 74.9 ml LVAs ap4: 18.6 cm2 LVAs ap2: 14.7 cm2 LVLs ap4: 7.6 cm LVLs ap2: 7.0 cm ESV(MOD-sp4): 38.4 ml ESV(MOD-sp2): 26.7 ml ESV(sp4-el): 38.9 ml ESV(sp2-el): 26.0 ml EF(MOD-sp4): 58.7 % EF(MOD-sp2): 62.9 % EF(sp4-el): 59.9 % SV(MOD-sp4): 54.6 ml SV(MOD-sp2): 45.3 ml SV(sp4-el): 58.1 ml LA dimension(2D): 4.1 cm LA A4 area: 21.1 cm2 RA A4 area: 12.8 cm2 Doppler Measurements & Calculations MV E max michi: 73.5 cm/sec Lat Peak E' Michi: 9.0 cm/sec Med Peak E' Michi: 5.7 cm/sec MV A max michi: 87.3 cm/sec E/E' lat: 8.1 E/E' med: 12.9 MV E/A: 0.84 Ao V2 max: 157.6 cm/sec LV V1 max: 114.2 cm/sec PA V2 max: 105.8 cm/sec Ao max P.9 mmHg LV V1 max P.2 mmHg TR max michi: 238.4 cm/sec TR max P.9 mmHg ECHO/Echo Complete Interpretation Summary The study was technically difficult. Left ventricular systolic function is normal. The estimated ejection fraction is 60 %. Trivial mitral valve insufficiency. Trivial tricuspid valve insufficiency. Mild focal aortic valve calcification. Trivial pulmonic valve insufficiency. Calcified aortic root. Right ventricular systolic pressure estimated to be 26 mmHg. No evidence for diastolic dysfunction. Ordering Physician: Reshma Dong/Kaiser Soto Referring Physician: Jez Gotti Performed By: Nikole Clancy RDCS
--- NOTE | 2022-05-01 10:16 | CL.D_ITS ---
Patient Name: KEITH SUAZO Study Date: 05/01/2022 Performing: Kaiser Soto MD Ht: 66.14 inches 168 cm : 1955 Wt: 207.23 lbs 94 kg Age: 66 Gender: male BSA: 2.03 PROCEDURE(S) PERFORMED DC04-([id number])LHC/COR/CABG CLINICAL PROFILE AND INDICATIONS Indications: Cardiac Arrythmia, Suspected CAD Heart Failure: None Stress/Imaging Date: 03/26/2021tress Test with SPECT MPI: Negative Angina Classification Anginal Classification w/in 2 Weeks: No symptoms CAD Presentations: Other: palpitations; VT CONCLUSIONS Elevated Left Ventricular End Diastolic Pressure (mild) [place] Multivessel CAD GARCIA to OM1: patent SVG to LAD: patent SVG to RPDA: patent Right to Left collateral flow RECOMMENDATIONS Risk factor modification Medical therapy EP consultation for ventricular ectopy / dysrhythmia DESCRIPTION OF PROCEDURE The patient arrived to the procedure lab. The risks and benefits of the procedure as well as a full d escription of our services here and current unavailability of surgical backup were fully explained to the patient and/or their significant other prior to the catheterization. The Timeout was completed, verifying the correct patient and procedure. The patient's procedural site was prepped and draped in the usual fashion. Local anesthetic was given subcutaneously to right groin region with Lidocaine 2%. Using a modified Seldinger technique, arterial access was obtained via the right femoral artery, a 4 Fr sheath was inserted Left Coronary Artery selective angiography was performed in multiple views us ing a 4 Fr. JL4 catheter. Right Coronary Artery selective angiography was then performed in multiple views using a 4 Fr. JR4 catheter. Saphenous Vein graft to the LAD selective angiography was performed in multiple views using a 4 Fr. JR4 catheter. Saphenous Vein graft to the RCA selective angiography was performed in multiple views using a 4 Fr. JR4 catheter. Left internal mammary artery graft to the Circumflex selective angiography was performed in multiple views using a 4 Fr. IM cathet er. Saphenous Vein graft to the RCA selective angiography was performed in multiple views using a 4 F r. RCB catheter. LV to AO pullback pressures were then recorded.The arterial sheath was pulled and ma nual compression applied until hemostasis is achieved. CORONARY ANGIOGRAPHY DOMINANCE: Right Dominant LEFT HEART ASSESSMENT Left Ventricular Ejection Fraction: Not assessed Elevated Left Ventricular End Diastolic Pressure LVEDP: 13 mmHg LEFT MAIN: Mild calcification, Mild luminal irregularities LEFT ANTERIOR DESCENDING ARTERY: PROX LAD: Mild calcification, 25 % Stenosis, 50 % Stenosis MID LAD: to distal: fills from antegrade flow and SVG graft flow with no angiographically significant appearing disease distal to the graft attachment CIRCUMFLEX ARTERY: OSTIAL CIRC: 85 % Stenosis PROX CIRC: Mild calcification (small vessel) OM 1: Mid - fills predominantly from GARCIA graft flow with no angiographically significant disease dis reshma to the graft attachment OM 2: Mid - filling from antegrade flow and right to left collateral flow RIGHT CORONARY ARTERY: Mild luminal irregularities MID RCA: 25 % Stenosis DISTAL RCA: is occluded RT PDA: Mid - fills via SVG graft flow with no angiographically significant disease distal to the gra ft attachment GRAFTS: GARCIA graft to the 1st OM is patent Saphenous Vein graft to the Mid LAD is patent Saphenous Vein graft to the RPDA is patent COLLATERAL FLOW: Collateral flow from Right to Left COMPLICATIONS No Complications PROCEDURE MEDICATIONS Versed 1 mg IV Fentanyl 50 mcg IV Oxygen: 2 L/min via nasal cannula SUMMARY OF HEMODYNAMIC DATA Time AIR REST ECG 07:30:55 AO 191/91 (132) SA 08:53:55 LV 141/-5, 15 09:29:08 LV 142/-5, 13 09:29:14 LVp 141/-8, 9 09:29:26 AOp 145/61 (94) 09:29:31 Signed By Kaiser Soto MD On 05/01/2022 10:15:38 Kaiser Soto MD
== END 2022-05-01 14:05 | disposition home or self-care (01) ==
LOC: CLSP 07:05
PROVIDERS: PCP Family Medicine; Referring Provider Internal Medicine Cardiovascular Disease; Visit Provider Internal Medicine Cardiovascular Disease
DX: I25.10 Atherosclerotic heart disease of native coronary artery without angina pectoris (principal); I47.2 Ventricular tachycardia; I48.92 Unspecified atrial flutter; I48.0 Paroxysmal atrial fibrillation; N18.30 Chronic kidney disease, stage 3 unspecified; I12.9 Hypertensive chronic kidney disease with stage 1 through stage 4 chronic kidney disease, or unspecified chronic kidney disease; I44.0 Atrioventricular block, first degree; R00.2 Palpitations; E78.5 Hyperlipidemia, unspecified; I49.3 Ventricular premature depolarization; K21.9 Gastro-esophageal reflux disease without esophagitis; F17.290 Nicotine dependence, other tobacco product, uncomplicated; Z79.82 Long term (current) use of aspirin; Z79.890 Hormone replacement therapy; Z79.899 Other long term (current) drug therapy; Z95.1 Presence of aortocoronary bypass graft; Z86.73 Personal history of transient ischemic attack (TIA), and cerebral infarction without residual deficits
CPT/HCPCS: 93306; 93455; 99152; 99153; J7030; Q9967; C1769; C1894

== ENCOUNTER → 2022-06-12 | Outpatient (CLI) | payer MEDICARE, OTHER, SELFPAY ==
[2022-06-12 10:20] LABS: Albumin, Serum 3.7 g/dL (3.2-5.0); BUN 24 mg/dL (7-18); BUN/Creat Ratio 17.1 RATIO (10-20); Chloride 107 mmol/L (98-107); EST Glomerular Filtration Rate 54 mL/min (>60); Est Glom Filt Rate - Afr Amer 65 mL/min (>60); Glucose 158 mg/dL (74-106); Phosphorus 3.9 mg/dL (2.5-4.9); Potassium 3.9 mmol/L (3.5-5.1); Sodium Level 140 mmol/L (136-145)
== END | disposition home or self-care (01) ==
PROVIDERS: PCP Family Medicine; Referring Provider Internal Medicine Nephrology; Visit Provider Internal Medicine Nephrology
DX: N18.31 Chronic kidney disease, stage 3a (principal)
CPT/HCPCS: 36415; 80069

== ENCOUNTER → 2022-07-26 | Outpatient (CLI) | payer MEDICARE, OTHER, SELFPAY ==
[2022-07-26 12:14] LABS: Absolute Lymphocyte Count 1.29 X10^3/uL (0.83-4.51); Absolute Neutrophil Count 4.9 X10^3/uL (2.0-7.7); Basophil# 0.08 X10^3/uL; Basophil% 1.1 % (0-1); Eosinophil# 0.34 X10^3/uL; Eosinophils% 4.7 % (0-5); Hematocrit 46.9 % (40-54); Lymphocyte # 1.29 X10^3/ul (0.83-4.51); Lymphocyte % 17.7 % (19-41); Mean Corp Hgb Conc 34.1 g/dL (32-36); Mean Corpuscular Hgb 31.7 pg (27.0-32.0); Mean Corpuscular Volume 93.1 fL (80-94); Mean Platelet Vol. 9.6 fl (6.2-12.0); Monocyte# 0.59 X10^3/uL; Monocyte% 8.1 % (0-10); NRBC Flagged by Analyzer 0 % (0-5); Neutrophil # 4.93 X10^3/uL (2.7-7.7); Neutrophil % 67.4 % (47-70); Platelet Count 254 K/mm3 (150-450); RBC Distribution Width CV 12.9 % (11.6-14.6); RBC Distribution Width SD 43.8 fl (35.1-43.9); Red Blood Count 5.04 M/mm3 (4.6-6.2); White Blood Count 7.3 K/mm3 (4.4-11.0)
[2022-07-26 12:41] LABS: AST(SGOT) 46 U/L (15-37); Alanine Aminotransfer ALT/SGPT 63 U/L (16-61); Albumin, Serum 3.8 g/dL (3.2-5.0); Alkaline Phosphatase 166 U/L (45-117); Anion Gap 10 (5-15); BUN 25 mg/dL (7-18); Calcium,Total 8.7 mg/dL (8.5-10.1); Chloride 103 mmol/L (98-107); Cholesterol 155 mg/dL (200); Creatinine, Serum 1.25 mg/dL (0.70-1.30); EST Glomerular Filtration Rate 61 mL/min (>60); Est Glom Filt Rate - Afr Amer 74 mL/min (>60); Glucose 173 mg/dL (74-106); High Density Lipoprotein 29 mg/dL; Phosphorus 3.2 mg/dL (2.5-4.9); Potassium 3.8 mmol/L (3.5-5.1); Protein, Total 7.8 g/dL (6.4-8.2); Sodium Level 138 mmol/L (136-145); T4 Free Direct 1.02 ng/dL (0.76-1.46); Thyroid Stim Hormone (TSH) 3.47 uIU/mL (0.358-3.74); Triglycerides 460 mg/dL
[2022-07-26 12:43] LABS: Hemoglobin A1c 8.3 % (3.8-5.6)
[2022-07-26 13:56] LABS: Microalbumin,Random Urine 35.4 mg/L (NO RANGE EST.); Microalbumin:Creatinine Ratio 53.7 mg/g CRE (<30 mg/g CRE)
== END | disposition home or self-care (01) ==
LOC: MTLAB 09:18
PROVIDERS: PCP Family Medicine; Referring Provider Family Medicine; Visit Provider Family Medicine
DX: E11.22 Type 2 diabetes mellitus with diabetic chronic kidney disease (principal); N18.31 Chronic kidney disease, stage 3a; E03.8 Other specified hypothyroidism
CPT/HCPCS: 80053; 80061; 82043; 82570; 83036; 84100; 84439; 84443; 85025

== ENCOUNTER → 2022-10-30 | Outpatient (CLI) | payer MEDICARE, OTHER, SELFPAY ==
[2022-10-30 12:09] LABS: Absolute Lymphocyte Count 1.45 X10^3/uL (0.83-4.51); Absolute Neutrophil Count 5.7 X10^3/uL (2.0-7.7); Basophil# 0.05 X10^3/uL; Basophil% 0.6 % (0-1); Eosinophil# 0.26 X10^3/uL; Eosinophils% 3.2 % (0-5); Hematocrit 44.7 % (40-54); Hemoglobin 15.3 g/dL (13.0-16.5); Lymphocyte # 1.45 X10^3/ul (0.83-4.51); Lymphocyte % 17.6 % (19-41); Mean Corp Hgb Conc 34.2 g/dL (32-36); Mean Corpuscular Hgb 30.8 pg (27.0-32.0); Mean Corpuscular Volume 89.9 fL (80-94); Mean Platelet Vol. 9.9 fl (6.2-12.0); Monocyte# 0.69 X10^3/uL; Monocyte% 8.4 % (0-10); NRBC Flagged by Analyzer 0 % (0-5); Neutrophil # 5.69 X10^3/uL (2.7-7.7); Neutrophil % 69.2 % (47-70); Platelet Count 245 K/mm3 (150-450); RBC Distribution Width CV 13.5 % (11.6-14.6); RBC Distribution Width SD 44.1 fl (35.1-43.9); Red Blood Count 4.97 M/mm3 (4.6-6.2); White Blood Count 8.2 K/mm3 (4.4-11.0)
[2022-10-30 13:05] LABS: AST(SGOT) 27 U/L (15-37); Alanine Aminotransfer ALT/SGPT 38 U/L (16-61); Albumin, Serum 3.7 g/dL (3.2-5.0); Alkaline Phosphatase 192 U/L (45-117); Anion Gap 7 (5-15); BUN 25 mg/dL (7-18); BUN/Creat Ratio 20.8 RATIO (10-20); Calcium,Total 9.1 mg/dL (8.5-10.1); Chloride 104 mmol/L (98-107); Cholesterol 154 mg/dL (200); EST Glomerular Filtration Rate 64 mL/min (>60); Est Glom Filt Rate - Afr Amer 77 mL/min (>60); Globulin 3.6 g/dL (2.2-4.2); Glucose 198 mg/dL (74-106); High Density Lipoprotein 31 mg/dL; Magnesium 2.4 mg/dL (1.6-2.6); Potassium 4.1 mmol/L (3.5-5.1); Protein, Total 7.3 g/dL (6.4-8.2); Sodium Level 137 mmol/L (136-145); T4 Free Direct 0.92 ng/dL (0.76-1.46); Thyroid Stim Hormone (TSH) 5.95 uIU/mL (0.358-3.74); Triglycerides 388 mg/dL; Very Low Density Lipoprotein 78 mg/dL (5-40)
[2022-10-30 13:16] LABS: Hemoglobin A1c 7.5 % (3.8-5.6)
== END | disposition home or self-care (01) ==
LOC: MFPLAB 10:43
PROVIDERS: PCP Family Medicine; Referring Provider Family Medicine; Visit Provider Family Medicine
DX: E11.9 Type 2 diabetes mellitus without complications (principal); E03.9 Hypothyroidism, unspecified
CPT/HCPCS: 36415; 80053; 80061; 83036; 83735; 84439; 84443; 85025

== ENCOUNTER → 2022-12-24 | Outpatient (CLI) | payer MEDICARE, OTHER, SELFPAY ==
[2022-12-24 12:34] LABS: Albumin, Serum 3.6 g/dL (3.2-5.0); BUN 21 mg/dL (7-18); BUN/Creat Ratio 15.3 RATIO (10-20); Chloride 102 mmol/L (98-107); Creatinine, Serum 1.37 mg/dL (0.70-1.30); EST Glomerular Filtration Rate 55 mL/min (>60); Est Glom Filt Rate - Afr Amer 66 mL/min (>60); Glucose 172 mg/dL (74-106); Phosphorus 3.8 mg/dL (2.5-4.9); Sodium Level 136 mmol/L (136-145)
[2022-12-24 12:57] LABS: Microalbumin,Random Urine 68.2 mg/L (NO RANGE EST.); Microalbumin:Creatinine Ratio 77.8 mg/g CRE (<30 mg/g CRE)
== END | disposition home or self-care (01) ==
LOC: MFPLAB 10:24
PROVIDERS: PCP Family Medicine; Visit Provider Internal Medicine Nephrology
DX: N18.31 Chronic kidney disease, stage 3a (principal); E11.22 Type 2 diabetes mellitus with diabetic chronic kidney disease
CPT/HCPCS: 36415; 80069; 82043; 82570

== ENCOUNTER → 2023-01-28 | Outpatient (CLI) | payer MEDICARE, OTHER, SELFPAY ==
[2023-01-28 12:44] LABS: Microalbumin,Random Urine 68.1 mg/L (NO RANGE EST.); Microalbumin:Creatinine Ratio 80.8 mg/g CRE (<30 mg/g CRE)
[2023-01-28 12:48] LABS: Absolute Lymphocyte Count 1.33 X10^3/uL (0.83-4.51); Absolute Neutrophil Count 3.8 X10^3/uL (2.0-7.7); Basophil# 0.07 X10^3/uL; Basophil% 1.1 % (0-1); Eosinophil# 0.36 X10^3/uL; Eosinophils% 5.8 % (0-5); Hematocrit 46.3 % (40-54); Hemoglobin 15.3 g/dL (13.0-16.5); Lymphocyte # 1.33 X10^3/ul (0.83-4.51); Lymphocyte % 21.4 % (19-41); Mean Corpuscular Volume 93.9 fL (80-94); Mean Platelet Vol. 9.5 fl (6.2-12.0); Monocyte# 0.58 X10^3/uL; Monocyte% 9.3 % (0-10); NRBC Flagged by Analyzer 0.3 % (0-5); Neutrophil # 3.83 X10^3/uL (2.7-7.7); Neutrophil % 61.6 % (47-70); Platelet Count 239 K/mm3 (150-450); RBC Distribution Width CV 14.2 % (11.6-14.6); RBC Distribution Width SD 49.2 fl (35.1-43.9); Red Blood Count 4.93 M/mm3 (4.6-6.2); White Blood Count 6.2 K/mm3 (4.4-11.0)
[2023-01-28 13:22] LABS: Hemoglobin A1c 9.1 % (3.8-5.6)
[2023-01-28 13:24] LABS: ALB/GLOB Ratio 0.9 RATIO (0.9-2.4); AST(SGOT) 41 U/L (15-37); Alanine Aminotransfer ALT/SGPT 48 U/L (16-61); Albumin, Serum 3.6 g/dL (3.2-5.0); Alkaline Phosphatase 147 U/L (45-117); Anion Gap 9 (5-15); BUN 24 mg/dL (7-18); BUN/Creat Ratio 20.3 RATIO (10-20); Calcium,Total 8.9 mg/dL (8.5-10.1); Chloride 104 mmol/L (98-107); Cholesterol 180 mg/dL (200); Creatinine, Serum 1.18 mg/dL (0.70-1.30); EST Glomerular Filtration Rate 65 mL/min (>60); Est Glom Filt Rate - Afr Amer 79 mL/min (>60); Globulin 3.8 g/dL (2.2-4.2); Glucose 165 mg/dL (74-106); High Density Lipoprotein 28 mg/dL; Potassium 4.2 mmol/L (3.5-5.1); Protein, Total 7.4 g/dL (6.4-8.2); Sodium Level 137 mmol/L (136-145); T4 Free Direct 1.05 ng/dL (0.76-1.46); Thyroid Stim Hormone (TSH) 3.32 uIU/mL (0.358-3.74); Triglycerides 451 mg/dL
== END | disposition home or self-care (01) ==
LOC: MFPLAB 09:39
PROVIDERS: PCP Family Medicine; Referring Provider Family Medicine; Visit Provider Family Medicine
DX: E11.9 Type 2 diabetes mellitus without complications (principal); E03.8 Other specified hypothyroidism
CPT/HCPCS: 36415; 80053; 80061; 82043; 82570; 83036; 84439; 84443; 85025

== ENCOUNTER → 2023-04-10 | Outpatient (CLI) | payer MEDICARE, OTHER, SELFPAY ==
[2023-04-10 18:29] LABS: Absolute Lymphocyte Count 1.16 X10^3/uL (0.83-4.51); Absolute Neutrophil Count 7.1 X10^3/uL (2.0-7.7); Basophil# 0.09 X10^3/uL; Basophil% 0.9 % (0-1); Eosinophil# 0.34 X10^3/uL; Eosinophils% 3.5 % (0-5); Hematocrit 44.4 % (40-54); Hemoglobin 14.5 g/dL (13.0-16.5); Lymphocyte # 1.16 X10^3/ul (0.83-4.51); Mean Corp Hgb Conc 32.7 g/dL (32-36); Mean Corpuscular Hgb 29.7 pg (27.0-32.0); Mean Corpuscular Volume 90.8 fL (80-94); Mean Platelet Vol. 9.7 fl (6.2-12.0); Monocyte# 0.86 X10^3/uL; Monocyte% 8.9 % (0-10); NRBC Flagged by Analyzer 0 % (0-5); Neutrophil # 7.09 X10^3/uL (2.7-7.7); Neutrophil % 73.7 % (47-70); Platelet Count 271 K/mm3 (150-450); RBC Distribution Width SD 46.9 fl (35.1-43.9); Red Blood Count 4.89 M/mm3 (4.6-6.2); White Blood Count 9.6 K/mm3 (4.4-11.0)
[2023-04-10 18:53] LABS: Anion Gap 7 (5-15); BUN 39 mg/dL (7-18); BUN/Creat Ratio 31.7 RATIO (10-20); Calcium,Total 9.3 mg/dL (8.5-10.1); Chloride 104 mmol/L (98-107); Creatinine, Serum 1.23 mg/dL (0.70-1.30); EST Glomerular Filtration Rate 62 mL/min (>60); Est Glom Filt Rate - Afr Amer 75 mL/min (>60); Glucose 117 mg/dL (74-106); Potassium 4.2 mmol/L (3.5-5.1); Sodium Level 135 mmol/L (136-145); T4 Free Direct 1.04 ng/dL (0.76-1.46); Thyroid Stim Hormone (TSH) 4.66 uIU/mL (0.358-3.74)
[2023-04-10 18:54] LABS: BNP,B-Type NATRIURETIC PEPTIDE 88.7 pg/mL (0-100)
== END | disposition home or self-care (01) ==
PROVIDERS: PCP Family Medicine; Visit Provider Nurse Practitioner Family
DX: E03.8 Other specified hypothyroidism (principal); R53.83 Other fatigue; R60.9 Edema, unspecified; R06.09 Other forms of dyspnea
CPT/HCPCS: 36415; 80048; 83880; 84439; 84443; 85025

== ENCOUNTER → 2023-05-02 | Outpatient (CLI) | payer MEDICARE, OTHER, SELFPAY ==
[2023-05-02 11:15] LABS: Microalbumin,Random Urine 26.7 mg/L (NO RANGE EST.); Microalbumin:Creatinine Ratio 26.8 mg/g CRE (<30 mg/g CRE)
[2023-05-02 11:20] LABS: Absolute Lymphocyte Count 1.38 X10^3/uL (0.83-4.51); Absolute Neutrophil Count 3.8 X10^3/uL (2.0-7.7); Basophil# 0.07 X10^3/uL; Basophil% 1.1 % (0-1); Eosinophil# 0.38 X10^3/uL; Hematocrit 46.2 % (40-54); Hemoglobin 14.9 g/dL (13.0-16.5); Lymphocyte # 1.38 X10^3/ul (0.83-4.51); Lymphocyte % 21.9 % (19-41); Mean Corp Hgb Conc 32.3 g/dL (32-36); Mean Corpuscular Hgb 29.4 pg (27.0-32.0); Mean Corpuscular Volume 91.3 fL (80-94); Mean Platelet Vol. 9.6 fl (6.2-12.0); Monocyte# 0.59 X10^3/uL; Monocyte% 9.4 % (0-10); NRBC Flagged by Analyzer 0 % (0-5); Neutrophil # 3.83 X10^3/uL (2.7-7.7); Neutrophil % 60.6 % (47-70); Platelet Count 262 K/mm3 (150-450); RBC Distribution Width CV 14.3 % (11.6-14.6); RBC Distribution Width SD 48.2 fl (35.1-43.9); Red Blood Count 5.06 M/mm3 (4.6-6.2); White Blood Count 6.3 K/mm3 (4.4-11.0)
[2023-05-02 11:36] LABS: Hemoglobin A1c 7.4 % (3.8-5.6)
[2023-05-02 11:52] LABS: ALB/GLOB Ratio 0.8 RATIO (0.9-2.4); AST(SGOT) 38 U/L (15-37); Alanine Aminotransfer ALT/SGPT 48 U/L (16-61); Albumin, Serum 3.6 g/dL (3.2-5.0); Alkaline Phosphatase 145 U/L (45-117); Anion Gap 7 (5-15); BUN 34 mg/dL (7-18); BUN/Creat Ratio 24.6 RATIO (10-20); Calcium,Total 9.5 mg/dL (8.5-10.1); Chloride 105 mmol/L (98-107); Cholesterol 119 mg/dL (200); Creatinine, Serum 1.38 mg/dL (0.70-1.30); EST Glomerular Filtration Rate 54 mL/min (>60); Est Glom Filt Rate - Afr Amer 66 mL/min (>60); Globulin 4.3 g/dL (2.2-4.2); Glucose 127 mg/dL (74-106); High Density Lipoprotein 25 mg/dL; Potassium 4.4 mmol/L (3.5-5.1); Protein, Total 7.9 g/dL (6.4-8.2); Sodium Level 135 mmol/L (136-145); T4 Free Direct 1.14 ng/dL (0.76-1.46); Thyroid Stim Hormone (TSH) 1.54 uIU/mL (0.358-3.74); Triglycerides 280 mg/dL; Very Low Density Lipoprotein 56 mg/dL (5-40)
== END | disposition home or self-care (01) ==
LOC: MFPLAB 09:22
PROVIDERS: PCP Family Medicine; Visit Provider Family Medicine
DX: E11.9 Type 2 diabetes mellitus without complications (principal); E03.8 Other specified hypothyroidism
CPT/HCPCS: 36415; 80053; 80061; 82043; 82570; 83036; 84439; 84443; 85025

== ENCOUNTER → 2023-05-16 | Outpatient (CLI) | payer MEDICARE, OTHER, SELFPAY ==
[2023-05-16 10:44] LABS: Anion Gap 9 (5-15); BUN 29 mg/dL (7-18); BUN/Creat Ratio 24.2 RATIO (10-20); Calcium,Total 9.2 mg/dL (8.5-10.1); Chloride 104 mmol/L (98-107); EST Glomerular Filtration Rate 64 mL/min (>60); Est Glom Filt Rate - Afr Amer 77 mL/min (>60); Glucose 147 mg/dL (74-106); PSA,Total - Annual Screen 0.98 ng/mL (0.00-4.00); Potassium 4.7 mmol/L (3.5-5.1); Sodium Level 139 mmol/L (136-145)
== END | disposition home or self-care (01) ==
LOC: MFPLAB 08:43
PROVIDERS: PCP Family Medicine; Visit Provider Family Medicine
DX: N18.2 Chronic kidney disease, stage 2 (mild) (principal); Z12.5 Encounter for screening for malignant neoplasm of prostate
CPT/HCPCS: 36415; 80048; 84153; G0103

== ENCOUNTER → 2023-07-18 | Outpatient (CLI) | payer MEDICARE, OTHER, SELFPAY ==
[2023-07-18 12:21] LABS: Albumin, Serum 3.6 g/dL (3.2-5.0); BUN 21 mg/dL (7-18); BUN/Creat Ratio 15.8 RATIO (10-20); Calcium,Total 8.9 mg/dL (8.5-10.1); Chloride 104 mmol/L (98-107); Creatinine, Serum 1.33 mg/dL (0.70-1.30); EST Glomerular Filtration Rate 57 mL/min (>60); Est Glom Filt Rate - Afr Amer 68 mL/min (>60); Glucose 153 mg/dL (74-106); Phosphorus 3.7 mg/dL (2.5-4.9); Potassium 4.1 mmol/L (3.5-5.1); Sodium Level 134 mmol/L (136-145)
[2023-07-18 12:48] LABS: Protein, Urine (Random) 12.9 mg/dL (<11.9); Protein:Creat Ratio 319 mg/g CRE (0-200)
== END | disposition home or self-care (01) ==
PROVIDERS: PCP Family Medicine; Referring Provider Internal Medicine Nephrology; Visit Provider Internal Medicine Nephrology
DX: N18.31 Chronic kidney disease, stage 3a (principal); E11.22 Type 2 diabetes mellitus with diabetic chronic kidney disease
CPT/HCPCS: 36415; 80069; 82570; 84156

== ENCOUNTER → 2023-08-29 | Outpatient (CLI) | payer MEDICARE, OTHER, SELFPAY ==
[2023-08-29 12:17] LABS: Absolute Lymphocyte Count 1.17 X10^3/uL (0.83-4.51); Basophil# 0.07 X10^3/uL; Basophil% 1.1 % (0-1); Eosinophil# 0.19 X10^3/uL; Eosinophils% 3.1 % (0-5); Hematocrit 47.3 % (40-54); Hemoglobin 15.2 g/dL (13.0-16.5); Lymphocyte # 1.17 X10^3/ul (0.83-4.51); Mean Corp Hgb Conc 32.1 g/dL (32-36); Mean Corpuscular Hgb 29.8 pg (27.0-32.0); Mean Corpuscular Volume 92.7 fL (80-94); Mean Platelet Vol. 9.4 fl (6.2-12.0); Monocyte# 0.66 X10^3/uL; Monocyte% 10.7 % (0-10); NRBC Flagged by Analyzer 0 % (0-5); Neutrophil # 3.99 X10^3/uL (2.7-7.7); Platelet Count 280 K/mm3 (150-450); RBC Distribution Width CV 14.6 % (11.6-14.6); RBC Distribution Width SD 49.8 fl (35.1-43.9); White Blood Count 6.2 K/mm3 (4.4-11.0)
[2023-08-29 12:53] LABS: ALB/GLOB Ratio 0.9 RATIO (0.9-2.4); AST(SGOT) 28 U/L (15-37); Alanine Aminotransfer ALT/SGPT 47 U/L (16-61); Albumin, Serum 3.6 g/dL (3.2-5.0); Alkaline Phosphatase 206 U/L (45-117); Anion Gap 6 (5-15); BUN 25 mg/dL (7-18); Chloride 106 mmol/L (98-107); Cholesterol 115 mg/dL (200); Creatinine, Serum 1.39 mg/dL (0.70-1.30); EST Glomerular Filtration Rate 54 mL/min (>60); Est Glom Filt Rate - Afr Amer 65 mL/min (>60); Globulin 3.9 g/dL (2.2-4.2); Glucose 153 mg/dL (74-106); High Density Lipoprotein 28 mg/dL; Potassium 4.4 mmol/L (3.5-5.1); Protein, Total 7.5 g/dL (6.4-8.2); Sodium Level 135 mmol/L (136-145); T4 Free Direct 1.16 ng/dL (0.76-1.46); Thyroid Stim Hormone (TSH) 2.02 uIU/mL (0.358-3.74); Triglycerides 280 mg/dL; Very Low Density Lipoprotein 56 mg/dL (5-40)
[2023-08-29 13:12] LABS: Hemoglobin A1c 6.4 % (3.8-5.6)
[2023-08-29 13:19] LABS: Microalbumin,Random Urine 63.2 mg/L (NO RANGE EST.); Microalbumin:Creatinine Ratio 82.2 mg/g CRE (<30 mg/g CRE)
== END | disposition home or self-care (01) ==
LOC: MTLAB 10:13
PROVIDERS: PCP Family Medicine; Referring Provider Family Medicine; Visit Provider Family Medicine
DX: E11.9 Type 2 diabetes mellitus without complications (principal); E03.8 Other specified hypothyroidism
CPT/HCPCS: 36415; 80053; 80061; 82043; 82570; 83036; 84439; 84443; 85025

== ENCOUNTER → 2023-09-23 | Outpatient (CLI) | payer MEDICARE, OTHER, SELFPAY ==
[2023-09-23 17:55] LABS: AST(SGOT) 41 U/L (15-37); Alanine Aminotransfer ALT/SGPT 59 U/L (16-61); Albumin, Serum 3.9 g/dL (3.2-5.0); Alkaline Phosphatase 125 U/L (45-117); Anion Gap 5 (5-15); BUN 25 mg/dL (7-18); Calcium,Total 8.9 mg/dL (8.5-10.1); Chloride 106 mmol/L (98-107); Creatinine, Serum 1.39 mg/dL (0.70-1.30); EST Glomerular Filtration Rate 54 mL/min (>60); Est Glom Filt Rate - Afr Amer 65 mL/min (>60); GGTP 78 U/L (15-85); Globulin 3.9 g/dL (2.2-4.2); Glucose 111 mg/dL (74-106); Potassium 4.3 mmol/L (3.5-5.1); Protein, Total 7.8 g/dL (6.4-8.2); Sodium Level 133 mmol/L (136-145)
== END | disposition home or self-care (01) ==
LOC: MFPLAB 14:27
PROVIDERS: PCP Family Medicine; Visit Provider Family Medicine
DX: R74.8 Abnormal levels of other serum enzymes (principal)
CPT/HCPCS: 36415; 80053; 82977

== ENCOUNTER → 2023-12-16 | Outpatient (CLI) | payer MEDICARE, OTHER, SELFPAY ==
[2023-12-16 09:14] LABS: Bacteria 0 SEEN /hpf (None Seen); Mucous, Urine 0 SEEN /hpf (<or=2+); Red Blood Cells-Urine 0 SEEN /hpf (0-5)
--- OUTSIDE RECORDS SUMMARY | 2023-12-16 09:42 | XMS RPT_ITS | CCD ---
Author Name Unknown Address [id number] [place] [address] Organization [facility] Care Team Providers Care Content Development Specialist Name Role Phone Destinee GAMEZ, Felisa Esposito Unavailable Unavailable Troy Dang Unavailable Unavailable Leanna HOSPITAL MONITOR, Claudia Munguia Unavailable Jean-Claude Briscoe Unavailable Unavailable [facility] Unavailable Claudia Low Primary Care Provider [phone] Maxime KENNEDY, Scooby Esposito Unavailable Claudia Low Unavailable Unavailable Unavailable Dr. Hu Salas Attending Unavailable Devante, Dr. Claudia Viera Primary Care Dr. Hu Jimenez Attending Unavailable Devante, Dr. Claudia Viera Primary Care Paty Ortiz, Oli Domenico Restrepo Attending Unavailable Devante, Dr. Claudia Viera Primary Care Dr. Hu Jimenez Attending Unavailable Devante, Dr. Claudia Viera Primary Care Paty Low, Dr. Claudia Viera Primary Care Hu Jimenez Attending Unavailable Hu Salas Referring Unavailable Dr. Claudia Low Primary Care Hu Jimenez Attending Unavailable Hu Salas Referring Unavailable Dr. Claudia Low Primary Care Rob Chan Attending Unavailable Rob Lutz Referring Unavailable Hu Salas Attending Unavailable Dr. Claudia Low Primary Care Alexis Jimenezshank Referring Unavailable Devante, Dr. Story [facility] UnavaRob Duran Attending Unavailable Rob Lutz Referring Unavailable Devante, Dr. Story [facility] Unavai labHu Jaeger Attending Unavailable Hu Salas Referring Unavailable Gilberto, Dr. Yi Guevara Attending Jimbo Low, Dr. Claudia Viera [facility] Paty Low, Dr. Story [facility] Unavai labHu Jaeger Referring Unavailable Hu Salas Attending Unavailable Hu Salas Admitting Unavailable Gilberto, Dr. Yi Guevara Attending Unavailarturo Low, Dr. Claudia Viera [facility] Paty Low, Dr. Story [facility] Paty Macias, Dr. Yi Guevara Attending Unavailarturo Low, Dr. Claudia Viera [facility] Paty Macias, Dr. Yi Guevara Attending Unavailarturo Low, Dr. Story [facility] Paty Macias, Dr. Yi Guevara Attending Unavailarturo Low MD, [facility] Provider JOÃO GARCIA Attending MD OMAR Chery Referring MD OMAR Carballo [facility] Paty CESAR MD ARLEY AGUILERA Attending DO YI Steven [facility] HU Lal Referring Unavailable CLAUDIA LOW [facility] Unavailabl HU Swanson Attending Unavailable DEVANTE [facility] Unavailabl HU Swanson Attending Unavailable CLAUDIA LOW [facility] Unavailarturo coombs Allergies Allergy Classification Reported Allergen(s) Allergy Type Date of Onset Reaction(s) Facility (13 sources) doxycycline; Translations: [DOXYCYCLINE] drug allergy 4 Other: See Comments, Photosensitivit y, Rash [facility] Work Phone: (4 sources) escitalopram drug allergy 4 [facility] Work Phone: (12 sources) guaiFENesin / HYDROcodone; Translations: [VICOTUSS] allergy to substance 4 Swelling [facility] Work Phone: (17 sources) HYDROcodone; Translations: [hydrocodone] drug allergy 4 Swelling, Anaphylaxis [facility] Work Phone: (4 sources) Penicillins (Antibiotic) drug allergy 4 [facility] Work Phone: (4 sources) Escitalopram; Translations: [ESCITALOPRAM] Drug Allergy 0 Other: See Comments, Other [facility] Work Phone: (2 sources) Penicillin G Drug Allergy 4 Hives [facility] (13 sources) Codeine; Translations: [codeine] Drug Allergy 3 Unknown [facility] (10 sources) Penicillins [employer]; Translations: [Penicillins [employer]] Allergy to drug (finding) -Cardiology- [place] Work Phone: (4 sources) Doxycycline; Translations: [Doxycycline Monohydrate CAPS] Drug Allergy -Cardiology- [address] Work Phone: (7 sources) fentaNYL; Translations: [FENTANYL] Drug Allergy 3 Swelling [facility] Work Phone: (7 sources) Penicillins; Translations: [PENICILLINS] Drug Allergy 3 Hives, Rash [facility] Work Phone: Medications Current Medications Medication Drug Class(es) Dates Sig (Normalized) Sig (Original) acetaminophen 500 mg oral tablet (4 sources) take 2 tablets by mouth every six hours as needed acetaminophen (Tylenol) 500 mg tablet Take 2 tablets (1,000 mg) by mouth every 6 hours if needed. 0 Active atorvastatin 20 mg oral tablet (20 sources) HMG-CoA Reductase Inhibitor Start: 07-30-2022 atorvastatin (Lipitor) 20 mg tablet Take 1 tablet (20 mg) by mouth once daily at bedtime. Atorvastatin Calcium 20 MG Oral Tablet Refills: 0 Start : 30-Jul-2022 Active 0 07/30/2022 Active Completed/Discontinued Medications Medication Drug Class(es) Dates Sig (Normalized) Sig (Original) OXYCODONE-ACETAMINO PHEN (8 sources) Opioid Agonist Start: 02-17-2014 PERCOCET 5-325 MG TABS As needed [facility]OD[facility] [phone] Justo Alejandro MD Problems Active Problems Problem Classification Problem Date Documented Date Episodic/Chronic Allergic reactions (5 sources) Allergy status to penicillin; Translations: [Allergy status to other antibiotic agents status] Onset: 09-21-2022 Episodic Cardiac and circulatory congenital anomalies (3 sources) Patent foramen ovale; Translations: [Atrial septal defect] Onset: 01-26-2020 01-26-2020 Chronic Cardiac dysrhythmias (20 sources) Sinus bradycardia; Translations: [Paroxysmal atrial fibrillation] Onset: 02-17-2014 03-14-2016 Chronic Cardiac dysrhythmias (7 sources) Palpitations; Translations: [Palpitations] Onset: 02-17-2014 Episodic Chronic kidney disease (4 sources) Chronic kidney disease stage 3; Translations: [Chronic renal insufficiency, stage III (moderate)] Onset: 01-26-2020 01-26-2020 Chronic Complication of device; implant or graft (4 sources) Arteriosclerosis of coronary artery bypass graft; Translations: [Atherosclerosis of coronary artery bypass graft(s) without angina pectoris] Onset: 02-17-2014 02-17-2014 Chronic Conduction disorders (20 sources) Automatic implantable cardiac defibrillator in situ; Translations: [Automatic implantable cardiac defibrillator in situ] Onset: 01-21-2023 10-07-2023 Chronic Coronary atherosclerosis and other heart disease (20 sources) Coronary atherosclerosis; Translations: [Atherosclerotic heart disease of [place] coronary artery without angina pectoris] Onset: 01-26-2020 Chronic Coronary atherosclerosis and other heart disease (8 sources) Aortocoronary bypass graft present; Translations: [Presence of aortocoronary bypass graft] Onset: 09-21-2022 Resolved: 12-03-2023 Episodic Diabetes mellitus with complications (2 sources) Type 2 diabetes mellitus with diabetic chronic kidney disease; Translations: [Type 2 diabetes mellitus with hyperglycemia] Onset: 11-12-2022 Chronic Diabetes mellitus without complication (16 sources) Diabetes mellitus; Translations: [Diabetes mellitus without mention of complication, type II or unspecified type, not stated as uncontrolled] Onset: 09-21-2022 10-06-2023 Chronic Disorders of lipid metabolism (8 sources) Hyperlipidemia; Translations: [Hyperlipidemia, unspecified] Onset: 01-17-2014 01-17-2014 Chronic Esophageal disorders (4 sources) Gastroesophageal reflux disease; Translations: [Gastro-esophageal reflux disease without esophagitis] Onset: 01-26-2020 01-26-2020 Chronic Essential hypertension (20 sources) Hypertensive disorder; Translations: [Benign essential hypertension] Onset: 01-17-2014 01-17-2014 Chronic Hypertension with complications and secondary hypertension (1 source) Hypertensive chronic kidney disease with stage 1 through stage 4 chronic kidney disease, or unspecified chronic kidney disease; Translations: [HYPERTENSIVE CHRONIC KIDNEY DISEASE W STG 1-4/UNSP] Onset: 10-02-2023 Chronic Malaise and fatigue (3 sources) Fatigue; Translations: [Other fatigue] Onset: 12-03-2023 01-26-2020 Episodic Nonmalignant breast conditions (2 sources) Mammary duct ectasia; 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] Onset: 03-09-2014 03-09-2014 Chronic Nutritional deficiencies (1 source) Nutritional deficiency, unspecified; Translations: [NUTRITIONAL DEFICIENCY, UNSPECIFIED] Onset: 10-02-2023 Episodic Other aftercare (1 source) Other residential (current) drug therapy; Translations: [OTHER COMMERCIAL REAL ESTATE UNDERWRITER (CURRENT) DRUG THERAPY] Onset: 10-02-2023 Episodic Residual codes; unclassified (1 source) Other specified postprocedural states; Translations: [OTHER SPECIFIED POSTPROCEDURAL STATES] Onset: 10-02-2023 Episodic Substance-related disorders (1 source) Nicotine dependence, unspecified, uncomplicated; Translations: [NICOTINE DEPENDENCE, UNSPECIFIED, UNCOMPLICATED] Onset: 11-12-2022 Chronic Thyroid disorders (1 source) Autoimmune thyroiditis; Translations: [AUTOIMMUNE THYROIDITIS] Onset: 10-02-2023 Chronic Unclassified (9 sources) Long-term drug therapy; Translations: [Other residential (current) drug therapy] Onset: 06-20-2014 Resolved: 07-24-2015 07-24-2015 Unclassified (2 sources) Ventricular tachycardia, unspecified; Translations: [Ventricular tachycardia, unspecified] Onset: 01-21-2023 Unclassified (1 source) Other ventricular tachycardia; Translations: [Other ventricular tachycardia] Onset: 05-07-2023 Past or Other Problems Problem Classification Problem Date Documented Date Episodic/Chronic Complications of surgical procedures or medical care (1 source) Other postprocedural complications of skin and subcutaneous tissue; Translations: [[facility] postprocedural complications of skin, subcu] Onset: 09-21-2022 Episodic Medical examination/evaluatio n (1 source) Encounter for pre-employment examination; Translations: [Encounter for pre-employment examination] Onset: 09-12-2017 09-12-2017 Episodic Nonmalignant breast conditions (5 sources) Lump in right breast; Translations: [Unspecified lump in the right breast, unspecified quadrant] Onset: 01-12-2014 01-12-2014 Episodic Nonspecific chest pain (4 sources) Chest pain; Translations: [Chest pain, unspecified] Onset: 01-18-2014 01-18-2014 Episodic Other aftercare (3 sources) Long-term (current) use of other medications; Translations: [Other residential (current) drug therapy] Onset: 06-20-2014 Resolved: 07-24-2015 07-24-2015 Episodic Other aftercare (1 source) penitentiary (current) use of aspirin; Translations: [intermediate card tender (current) use of aspirin] Onset: 09-21-2022 Episodic Other aftercare (1 source) intermediate card tender (current) use of oral hypoglycemic drugs; Translations: [intermediate card tender (current) use of oral hypoglycemic drugs] Onset: 09-21-2022 Episodic Other and unspecified benign neoplasm (2 sources) Lipoma (clinical); Translations: [Benign lipomatous neoplasm, unspecified] Onset: 03-09-2014 03-09-2014 Episodic Other circulatory disease (1 source) Personal history of other diseases of the circulatory system; Translations: [Personal history of other diseases of the circulatory system] Onset: 09-21-2022 Episodic Other inflammatory condition of skin (1 source) Erythematous condition, unspecified; Translations: [Erythematous condition, unspecified] Onset: 09-21-2022 Episodic Other nutritional; endocrine; and metabolic disorders (16 sources) Body mass index (BMI) 26.0-26.9, adult; Translations: [Body mass index (BMI) 27.0-27.9, adult] Onset: 05-06-2014 Resolved: 10-04-2015 08-10-2014 Episodic Residual codes; unclassified (4 sources) Family history of stroke; Translations: [Family history of stroke] 08-10-2014 Episodic Residual codes; unclassified (1 source) Family history of ischemic heart disease and other diseases of the circulatory system; Translations: [FAMILY HX OF ISCHEM HEART DIS AND OTH DIS OF THE C] Onset: 11-12-2022 Episodic Residual codes; unclassified (1 source) Other problems related to lifestyle; Translations: [OTHER PROBLEMS RELATED TO LIFESTYLE] Onset: 11-12-2022 Episodic Skin and subcutaneous tissue infections (1 source) Local infection of the skin and subcutaneous tissue, unspecified; Translations: [Local infection of the skin and subcutaneous tissue, unsp] Onset: 09-21-2022 Episodic Syncope (6 sources) Syncope and collapse; Translations: [Syncope and collapse] Onset: 08-10-2014 08-10-2014 Episodic Unclassified (4 sources) Onset: 10-07-2023 10-07-2023 Results Test Name Value Interpretation Reference Range Facil ity Vital Signs Date Time Vital Sign Value Performing Clinician Facility 10-07-2023 11:46-0500 Body height 167.6 cm Hu Salas MD Work Phone: [facility] 10-07-2023 11:46-0500 Body mass index (BMI) [Ratio] 35.83 kg/m2 Hu Salas MD Work Phone: [facility] 10-07-2023 11:46-0500 Body weight 100.7 kg Hu Salas MD Work Phone: [facility] 10-07-2023 11:46-0500 Diastolic blood pressure 84 mm[Hg] Hu Salas MD Work Phone: [facility] 10-07-2023 11:46-0500 Heart rate 52 /min Hu Salas MD Work Phone: [facility] 10-07-2023 11:46-0500 SaO2% (BldA) [Mass fraction] 94 % Hu Salas MD Work Phone: [facility] 10-07-2023 11:46-0500 Systolic blood pressure 120 mm[Hg] Hu Salas MD Work Phone: [facility] 07-17-2023 10:49-0400 Body height 167.64 cm Claudia Low Work Phone: PN-Iqtbzpwixs-Ftchz [address] Work Phone: 07-17-2023 10:49-0400 Body mass index (BMI) [Ratio] 34.54 kg/m2 Claudia Low Work Phone: EO-Jrrfludgjg-Toopq nd [address] Work Phone: 07-17-2023 10:49-0400 Body surface area Derived from formula 2.06 m2 Claudia Low Work Phone: EC-Embutgxmia-Jwmoo nd [address] Work Phone: 07-17-2023 10:49-0400 Body weight 97.07 kg Claudia Low Work Phone: QH-Jycugfmwtu-Euunp nd [address] Work Phone: 07-17-2023 10:49-0400 Diastolic blood pressure 72 mm[Hg] Claudia Low Work Phone: UH-Vjiatnwryp-Bfqew nd [address] Work Phone: 07-17-2023 10:49-0400 Heart rate 76 /min Claudia Low Work Phone: EV-Oyuooirhrz-Ofcyi nd [address] Work Phone: 07-17-2023 10:49-0400 SaO2% (BldA) [Mass fraction] 96 % Claudia Low Work Phone: BP-Vdspntzjdd-Aoceb [address] Work Phone: 07-17-2023 10:49-0400 Systolic blood pressure 122 mm[Hg] Claudia Low Work Phone: QX-Ksfwyjwsbu-Nrhql nd [address] Work Phone: 06-17-2023 11:10-0400 Body height 167.64 cm Claudia Low Work Phone: PQ-Lmhtiohkkc-Veeuj nd [address] Work Phone: 06-17-2023 11:10-0400 Body mass index (BMI) [Ratio] 34.22 kg/m2 Claudia Low Work Phone: TN-Oxsmqtbztx-Wtali nd [address] Work Phone: 06-17-2023 11:10-0400 Body surface area Derived from formula 2.05 m2 Claudia Low Work Phone: RY-Zwsmywysrk-Cdswn nd [address] Work Phone: 06-17-2023 11:10-0400 Body weight 96.16 kg Claudia Low Work Phone: SA-Uwxktfzpjg-Zddrh id [address] Work Phone: 06-17-2023 11:10-0400 Diastolic blood pressure 80 mm[Hg] Claudia Low Work Phone: HI-Xhragdyjuj-Hkykq id [address] Work Phone: 06-17-2023 11:10-0400 Heart rate 61 /min Claudia Low Work Phone: TB-Vzrvpvtqsc-Jayxl nd [address] Work Phone: 06-17-2023 11:10-0400 SaO2% (BldA) [Mass fraction] 99 % Claudia Low Work Phone: VU-Dnlufstoks-Nispx nd [address] Work Phone: 06-17-2023 11:10-0400 Systolic blood pressure 138 mm[Hg] Claudia Lwo Work Phone: CS-Mquduonvvt-Ghmtm nd [address] Work Phone: 01-15-2023 14:56-0500 Body height 167.64 cm Claudia Low Work Phone: ML-Fuwdpxsoxp-Vdfzw nd [address] Work Phone: 01-15-2023 14:56-0500 Body mass index (BMI) [Ratio] 33.45 kg/m2 Claudia Low Work Phone: DE-Xpbmybzawy-Jqmyu nd [address] Work Phone: 01-15-2023 14:56-0500 Body surface area Derived from formula 2.03 m2 Claudia Low Work Phone: SL-Zlgarcyfyt-Xhvzg nd [address] Work Phone: 01-15-2023 14:56-0500 Body weight 94.01 kg Claudia Low Work Phone: KU-Qvftribkdr-Jbuvs nd [address] Work Phone: 01-15-2023 14:56-0500 Diastolic blood pressure 96 mm[Hg] Claudia Low Work Phone: RY-Fnhbdhcjit-Isdct nd [address] Work Phone: 01-15-2023 14:56-0500 Heart rate 62 /min Claudia Low Work Phone: UZ-Xwfbmlmavw-Kykfd nd [address] Work Phone: 01-15-2023 14:56-0500 SaO2% (BldA) [Mass fraction] 95 % Claudia Low Work Phone: BG-Nprcfldmba-Vonas nd [address] Work Phone: 01-15-2023 14:56-0500 Systolic blood pressure 140 mm[Hg] Claudia Low Work Phone: XG-Zzcubjyecv-Vlruc nd [address] Work Phone: 12-17-2022 10:37-0500 Body height 167.64 cm Claudia Low Work Phone: UQ-Ymgfzwhfsu-Aaffg nd [address] Work Phone: 12-17-2022 10:37-0500 Body mass index (BMI) [Ratio] 33.67 kg/m2 Claudia Low Work Phone: AS-Lzsssdyjdl-Adgum nd [address] Work Phone: 12-17-2022 10:37-0500 Body surface area Derived from formula 2.04 m2 Claudia Low Work Phone: XN-Onctrezvvl-Zbudy nd [address] Work Phone: 12-17-2022 10:37-0500 Body weight 94.62 kg Claudia Low Work Phone: TC-Nsxxxmubcl-Hcemx nd [address] Work Phone: 12-17-2022 10:37-0500 Diastolic blood pressure 84 mm[Hg] Claudia Low Work Phone: EC-Xnkhvjghkk-Wehpz nd [address] Work Phone: 12-17-2022 10:37-0500 Heart rate 62 /min Claudia Low Work Phone: PO-Rsutprjdem-Ubmzy nd [address] Work Phone: 12-17-2022 10:37-0500 SaO2% (BldA) [Mass fraction] 97 % Claudia Low Work Phone: UB-Eusbuffiua-Fjnef nd [address] Work Phone: 12-17-2022 10:37-0500 Systolic blood pressure 138 mm[Hg] Claudia Low Work Phone: QS-Zmuithqbub-Fhafl nd [address] Work Phone: 09-12-2022 13:37-0400 Body height 167.64 cm Claudia Low Work Phone: DJ-Iiifpaqksh-Mwugg nd [address] Work Phone: 09-12-2022 13:37-0400 Body mass index (BMI) [Ratio] 32.35 kg/m2 Claudia Low Work Phone: BV-Aeszbwpyxk-Ayxkx nd [address] Work Phone: 09-12-2022 13:37-0400 Body surface area Derived from formula 2 m2 Claudia Low Work Phone: OR-Ecoykrumhf-Nykdi nd [address] Work Phone: 09-12-2022 13:37-0400 Body weight 90.92 kg Claudia Low Work Phone: XI-Zdzkhnpnzm-Urfkd nd [address] Work Phone: 09-12-2022 13:37-0400 Diastolic blood pressure 88 mm[Hg] Claudia Low Work Phone: QS-Jthapstkss-Ailij nd [address] Work Phone: 09-12-2022 13:37-0400 Heart rate 63 /min Claudia Low Work Phone: YM-Ckdfekcxfv-Cxfbf nd [address] Work Phone: 09-12-2022 13:37-0400 SaO2% (BldA) [Mass fraction] 98 % Claudia Low Work Phone: UJ-Vtwauzudgf-Ikuxd nd [address] Work Phone: 09-12-2022 13:37-0400 Systolic blood pressure 154 mm[Hg] Claudia Low Work Phone: OK-Gbgxqdioim-Tvrlf nd [address] Work Phone: 07-30-2022 11:51-0400 Body weight 93.8 kg Claudia Low Work Phone: OU-Pxekvbilsu-Gdzzt Work Phone: 07-30-2022 11:51-0400 Diastolic blood pressure 82 mm[Hg] Claudia Low Work Phone: EO-Abzjpyqnty-Qgmny Work Phone: 07-30-2022 11:51-0400 Heart rate 66 /min Claudia Low Work Phone: SY-Tbwaulnigw-Gxvda Work Phone: 07-30-2022 11:51-0400 SaO2% (BldA) [Mass fraction] 98 % Claudia Corin [employer] Work Phone: OL-Hlzwtlqvov-Gaacy Work Phone: 07-30-2022 11:51-0400 Systolic blood pressure 160 mm[Hg] Claudia Low Work Phone: GI-Jwcfgwymug-Dwuky Work Phone: 05-17-2022 10:16-0400 Body height 167.6 cm Scooby Swartz MD Work Phone: [facility] 05-17-2022 10:16-0400 Body weight 90.72 kg Scooby Swartz MD Work Phone: [facility] 05-17-2022 10:16-0400 Diastolic blood pressure 80 mm[Hg] Scooby Swartz MD Work Phone: [facility] 05-17-2022 10:16-0400 Heart rate 60 /min Scooby Swartz MD Work Phone: [facility] 05-17-2022 10:16-0400 Respiratory rate 18 /min Scooby Swartz MD Work Phone: [facility] 05-17-2022 10:16-0400 SaO2% (BldA) [Mass fraction] 99 % Scooby Swartz MD Work Phone: [facility] 05-17-2022 10:16-0400 Systolic blood pressure 131 mm[Hg] Scooby Swartz MD Work Phone: [facility] 09-12-2017 09:02-0400 BMI (Body Mass Index) 25.21 kg/m2 [facility] Work Phone: 09-12-2017 09:02-0400 Body Temperature 98.6 [degF] Felisa Felipe RN [facility] Work Phone: 09-12-2017 09:02-0400 BP Diastolic 86 mm[Hg] Felisa Felipe RN [facility] Work Phone: 09-12-2017 09:02-0400 BP Systolic 144 mm[Hg] Felisa Felipe RN [facility] Work Phone: 09-12-2017 09:02-0400 Height 170.18 cm Felisa Felipe RN [facility] Work Phone: 09-12-2017 09:02-0400 Pulse (Heart Rate) 66 /min Felisa Felipe RN [facility] Work Phone: 09-12-2017 09:02-0400 Respiratory Rate 12 /min Felisa Felipe RN [facility] Work Phone: 09-12-2017 09:02-0400 Weight 73.03 kg Felisa Felipe RN [facility] Work Phone: 06-02-2017 14:49-0400 BMI (Body Mass Index) 27.44 kg/m2 Jean-Claude Briscoe [facility] Work Phone: 06-02-2017 14:49-0400 BP Diastolic 68 mm[Hg] Jean-Claude Rachna [facility] Work Phone: 06-02-2017 14:49-0400 BP Systolic 118 mm[Hg] Nastalle Rachna [facility] Work Phone: 06-02-2017 14:49-0400 Height 167.64 cm Jean-Claude Rachna [facility] Work Phone: 06-02-2017 14:49-0400 Pulse (Heart Rate) 64 /min Charlenele Rachna [facility] Work Phone: 06-02-2017 14:49-0400 Respiratory Rate 16 /min Jean-Claude Briscoe [facility] Work Phone: 06-02-2017 14:49-0400 Weight 77.11 kg Jean-Claude Briscoe [facility] Work Phone: 11-11-2016 16:44-0500 BMI (Body Mass Index) 30.18 kg/m2 Troy Dang [facility] Work Phone: 11-11-2016 16:44-0500 BP Diastolic 80 mm[Hg] Troy DeFinis [facility] Work Phone: 11-11-2016 16:44-0500 BP Systolic 142 mm[Hg] Alejoumi DeFinis [facility] Work Phone: 11-11-2016 16:44-0500 BSA (Body Surface Area) 1.95 m2 Troy DeFinis [facility] Work Phone: 11-11-2016 16:44-0500 Pulse (Heart Rate) 68 /min Troy DeFinis [facility] Work Phone: 11-11-2016 16:44-0500 Respiratory Rate 16 /min Troy DeFinis [facility] Work Phone: 11-11-2016 16:44-0500 Weight 84.82 kg Alejoumi DeFinis [facility] Work Phone: 03-14-2016 15:59-0400 Heart rate 58 /min Harumi DeFinis [facility] Work Phone: 08-10-2014 16:25-0400 Heart rate 429 ms Troy DeFinis [facility] Work Phone: 02-17-2014 10:38-0400 Body Temperature 99.3 [degF] Harumi DeFinis [facility] Work Phone: 02-17-2014 10:38-0400 Pulse Oximetry 98 % Harumi DeFinis [facility] Work Phone: 01-19-2014 13:41-0500 Height 167.64 cm Harumi DeFinis [facility] Work Phone: Encounters Encounter Date Encounter Type Care Provider Facility Start: 12-11-2023 End: 12-11-2023 ambulatory HU [facility] Start: 12-11-2023 End: 12-11-2023 Office outpatient visit 25 minutes Hu Salas MD Work Phone: [facility] Procedures Date Procedure Procedure Detail Performing Clinician Start: 11-04-2023 CARDIAC DEVICE CHECK - IN CLINIC HU SALAS Start: 11-04-2023 Prgrmg eval implantable in prsn dual lead dfb Hu Salas MD Work Phone: Start: 10-06-2023 History of coronary artery bypass grafting History of coronary artery bypass graft x 2 Hu Salas MD Work Phone: Start: 08-20-2023 Activated clotting time (ACT) of Blood by Coagulation assay Hu Salas MD Work Phone: Start: 08-20-2023 End: 08-20-2023 Activated clotting time (ACT) of Blood by Coagulation assay Hu Salas MD Work Phone: Start: 08-20-2023 End: 08-20-2023 Activated clotting time (ACT) of Blood by Coagulation assay Hu Salas MD Work Phone: Start: 08-20-2023 ELECTROCARDIOGRAM 12 LEAD Tiana lara SHIELD INSTALLER-CONTACT CLERK Work Phone: Start: 08-20-2023 PT and aPTT panel - Platelet poor plasma by Coagulation assay Tiana Lynn SHIELD INSTALLER-CONTACT CLERK Work Phone: Start: 05-17-2022 Ecg routine ecg w/least 12 lds w/i&r Scooby Swartz MD Work Phone: Start: 09-12-2017 End: 09-12-2017 Pre-employment PE Nhan NORRIS Work Phone: Start: 06-02-2017 End: 06-02-2017 Dietary management education, guidance, and counseling Jean-Claude Briscoe Start: 06-02-2017 End: 06-02-2017 Follow Up Appt 6 months Kaiser Soto MD Start: 06-02-2017 End: 06-02-2017 PFM Kaiser Soto MD Start: 05-12-2017 Lipid 1996 panel - Serum or Plasma Hu Salas MD Work Phone: Start: 05-12-2017 End: 05-29-2017 *Hepatic Function Panel Kaiser Soto MD Start: 05-12-2017 End: 05-29-2017 Lipid panel [AGGREGATE] Kaiser Soto MD Start: 11-11-2016 End: 11-11-2016 Dietary management education, guidance, and counseling Troy Dang Start: 11-11-2016 End: 11-22-2016 *Hepatic Function Panel Kaiser Soto MD Start: 11-11-2016 End: 11-11-2016 Follow Up Appt 6 months Kaiser Soto MD Start: 11-11-2016 End: 11-22-2016 Lipid panel [AGGREGATE] Kaiser Soto MD Start: 11-11-2016 End: 11-11-2016 PFM Kaiser Soto MD Start: 04-26-2016 End: 04-26-2016 Follow Up Appt 6 months Kaiser Soto MD Start: 04-26-2016 End: 04-26-2016 PFM Kaiser Soto MD Start: 03-14-2016 End: 03-14-2016 Electrocardiogram, complete Kaiser perea MD Start: 01-22-2016 Thyrotropin [Units/volume] in Serum or Plasma Hu Salas MD Work Phone: Start: 01-22-2016 End: 05-21-2017 Thyroid stimulating hormone (TSH) Kaiser Soto MD Start: 01-22-2016 End: 05-21-2017 Thyroxine (T4) Kaiser Soto MD Start: 10-04-2015 End: 10-04-2015 *Hepatic Function Panel Kaiser Soto MD Start: 10-04-2015 End: 10-05-2015 Documentation of current medications Kaiser Soto MD Start: 10-04-2015 End: 10-04-2015 Follow Up Appt 6 months Kaiser Soto MD Start: 10-04-2015 End: 05-12-2017 PFM Kaiser Soto MD Start: 10-04-2015 End: 11-29-2016 Thyroid stimulating hormone (TSH) Kaiser Soto MD Start: 05-24-2015 End: 07-21-2015 *Hepatic Function Panel Kaiser Soto MD Start: 05-24-2015 End: 07-21-2015 Lipid panel [AGGREGATE] Kaiser Soto MD Start: 05-24-2015 End: 07-21-2015 Thyroid stimulating hormone (TSH) Kaiser Soto MD Start: 04-03-2015 End: 04-03-2015 Follow Up Appt 6 months Kaiser Soto MD Start: 04-03-2015 End: 04-03-2015 PFM Kaiser Soto MD Start: 2014 End: 2014 Electrocardiogram, complete Kaiser perae MD Start: 2014 End: 2014 Follow Up Appt 4 months Kaiser Soto MD Start: 2014 End: 12-14-2014 Nuclear stress test -exercise Kaiser Soto MD Start: 2014 End: 2014 PFM Kaiser Soto MD Start: 2014 End: 05-12-2017 Thyroid stimulating hormone (TSH) Kaiser Soto MD Start: 2014 End: 05-12-2017 Xtrnl mobile cv telemetry w/i&report 30 days Kaiser Soto MD Start: 11-24-2014 End: 11-28-2014 *Hepatic Function Panel Kaiser Soto MD Start: 11-24-2014 End: 11-28-2014 Lipid panel [AGGREGATE] Kaiser Soto MD Start: 11-24-2014 End: 11-28-2014 Thyroid stimulating hormone (TSH) Kaiser Soto MD Start: 08-10-2014 End: 11-28-2014 Electrocardiogram, complete Kaiser perea MD Start: 08-10-2014 End: 08-10-2014 Follow Up Appt 3 months Kaiser Soto MD Start: 08-10-2014 End: 08-10-2014 PFM Kaiser Soto MD Start: 05-06-2014 End: 06-10-2014 *Hepatic Function Panel Kaiser Soto MD Start: 05-06-2014 End: 05-06-2014 Follow Up Appt 3 months Kaiser Soto MD Start: 05-06-2014 End: 06-10-2014 Lipid panel [AGGREGATE] Kaiser Soto MD Start: 05-06-2014 End: 05-06-2014 PFM Kaiser Soto MD Start: 02-17-2014 End: 11-28-2014 *Hepatic Function Panel Av Casanova Start: 02-17-2014 End: 11-28-2014 Cardiac Rehab Justo Alejandro MD Start: 02-17-2014 End: 11-28-2014 Chest x-ray Justo Alejandro MD Start: 02-17-2014 End: 11-28-2014 MACHINE TURNER Justo Alejandro MD Start: 02-17-2014 End: 02-17-2014 Electrocardiogram, complete Justo Narayan i, MD Start: 02-17-2014 End: 02-17-2014 Follow Up Appt 3 months Av Casanova Start: 02-17-2014 End: 11-28-2014 Lipid panel [AGGREGATE] Av Casanova Start: 01-19-2014 End: 01-20-2014 *BMP Justo Alejandro MD Start: 01-19-2014 End: 01-19-2014 CBC W Auto Differential panel - Blood Justo Alejandro MD Start: 01-19-2014 End: 11-28-2014 Chest x-ray Justo Alejandro MD Start: 01-19-2014 End: 01-19-2014 Coagulation factor induced.INR assay in platelet poor plasma Justo Alejandro MD Start: 01-19-2014 End: 11-28-2014 Left Heart Cath Justo Alejandro MD History of coronary artery bypass grafting Hx of CABG Scooby Swartz MD Work Phone: History of coronary artery bypass grafting History of coronary artery bypass graft x 2 Claudia Low Work Phone: History of coronary artery bypass grafting History of coronary artery bypass graft x 2 Hu Salas MD Work Phone: Insertion of pacemak er pulse generator Claudia Coombs Devante Work Phone: Plan of Treatment Date Care Activity Detail Author Start: 07-15-2024 FUV, Provider: Rob Lutz, Status: Pen, Time: 11:00 AM FUV, Provider: oRb Lutz, Status: Pen, Time: 11:00 AM [id number] Work Phone: Start: 07-15-2024 End: 07-15-2024 Patient encounter procedure [facility] Start: 02-17-2024 End: 02-17-2024 Patient encounter procedure 02/17/2024 3:45 PM EDT Office Visit [address] [place] [id number] Hu Salas MD [address] [employer] [facility] [address] [place] [address] [facility] Start: 01-20-2024 End: 01-20-2024 Patient encounter procedure 01/20/2024 10:00 AM EST Appointment [facility] [address] [id number] [facility] Start: 12-11-2023 End: 12-11-2023 Telemedicine consultation with patient 12/11/2023 3:30 PM EST Telemedicine [facility] [address] [place] [address] Hu Salas MD [address] [facility] [address] [place] [address] [facility] Start: 12-11-2023 End: 12-11-2025 Holter monitor study Holter Or Event Application Support Developer Cardiac Services Routine PVC's (premature ventricular contractions) Paroxysmal atrial fibrillation (CMS/HCC) Expected: 12/11/2023 (Approximate), Expires: 12/11/2025 [facility] Service Area Work Phone: Immunizations Immunization Date Immunization Notes Care Provider Fa cili 09-10-2022 Flu vaccine, quadrivalent, high-dose, preservative free, age 65y+ (FLUZONE) Hu Salas MD Work Phone: [facility] Work Phone: 09-10-2022 Moderna COVID-19 vaccine, bivalent, blue cap/cabrera label *Check age/dose* Hu Salas MD Work Phone: [facility] Work Phone: 09-03-2021 influenza, high-dose , quadrivalent vaccine (FLUZONE HIGH DOSE QUADRIVALENT) Scooby Swartz MD Work Phone: [facility] Work Phone: 02-01-2021 COVID-19 vaccine, fu ll dose (MODERNA) Scooby Swartz MD Work Phone: [facility] Work Phone: 08-30-2020 influenza, injectabl e, quadrivalent, preservative free Scooby Swartz MD Work Phone: [facility] Work Phone: 08-24-2014 influenza, seasonal, injectable Scooby Swartz MD Work Phone: [facility] Work Phone: 07-23-2014 pneumococcal polysaccharide vaccine, 23 valent Scooby Swartz MD Work Phone: [facility] Work Phone: 06-24-2014 pneumococcal polysaccharide vaccine, 23 valent Scooby Swartz MD Work Phone: [facility] Work Phone: Payers Date Payer Category Payer Unknown [id number] 2019 Unknown [id number] 2019 Medicare [id number] 2018 Medicare MEDICARE MEDICAR E A AND B [id number] 2018-Present [phone] [place] [address] Medicare [id number] 2018 Medicare [id number] 1953 Unknown [id number] [id number] 1953 Unknown [id number] [id number] 1953 Unknown [id number] 2.16.840.1.328347.3.579.2.1069 1953 Unknown [id number] 2.16.840.1.085183.3.579.2.1069 1953 Unknown [id number] 2.16.840.1.452069.3.579.2.356 1953 Unknown [id number] 2.16.840.1.818885.3.579.2.356 1953 Unknown [id number] 2.16.840.1.411372.3.579.2.356 1953 Unknown [id number] 2.16.840.1.788061.3.579.2.356 1953 Unknown [id number] 2.16.840.1.021519.3.579.2.356 1953 Unknown [id number] 2.16.840.1.087668.3.579.2.356 1953 Unknown [id number] 2.16.840.1.082202.3.579.2.1046 1953 Unknown [id number] 2.16.840.1.682954.3.579.2.1046 1953 Unknown [id number] 2.16.840.1.694602.3.579.2.1046 1953 Unknown [id number] 2.16.840.1.314415.3.579.2.1046 1953 Unknown [id number] 2.16.840.1.273327.3.579.2.1046 1953 Unknown [id number] 2.16.840.1.796922.3.579.2.1046 1953 Unknown [id number] 2.16.840.1.044495.3.579.2.1243 1953 Unknown [id number] 2.16.840.1.345405.3.579.2.1244 1953 Unknown [id number] 2.16.840.1.345699.3.579.2.1244 Unknown Unknown [id number] 2.16.840.1.294338.3.579.2.212 Unknown [id number] [id number] Social History Date Type Detail Facility Start: 01-26-2020 Tobacco smoking status NHIS Occasional tobacco smoker [facility] History of tobacco use Cigar Smoker [facility] Start: 01-26-2020 End: 10-07-2023 Tobacco use and exposure Smokeless tobacco non-user [facility] Start: 05-17-2022 Alcohol intake Current drinke r of alcohol (finding) [facility] Start: 01-26-2020 History SDOH Alcohol Frequency 2 [facility] Start: 01-26-2020 History SDOH Alcohol Std Drinks 1 [facility] Start: 01-12-2014 History SDOH Alcohol Comment rarely [facility] Start: 01-12-2014 Tobacco Comment approximately 10 yea rs [facility] Start: 1955 Sex Assigned At Not on file C [facility] Start: 05-07-2022 End: 11-04-2023 Exposure to SARS-CoV-2 (event) Not sure [facility] Start: 10-07-2023 Cigar smoker Cigar smoker [facility] Work Phone: Start: 10-07-2023 Tobacco smoking status NHIS Smokes tobacco daily [facility] Start: 10-07-2023 Alcohol intake Ex-drinker (finding) [facility] Work Phone: Start: 10-07-2023 Tobacco use panel [facility] Work Phone: Tobacco smoking status NHIS Tobacco smoking consumption unknown [facility] Work Phone: Medical Equipment Procedure Code Equipment Code Equipment Origin al Text Equipment Identifier Dates test blood sugar EVERY DAY DIRECTED [id number] Start: 12-24-2022 Clinical Notes 12-25-2013 to 12-11-2023 Hu Salas MD - 12/11/2023 3:45 PM Candace Salas MD - 10/07/2023 11:30 AM Candace Salas MD - 08/20/2023 7:54 AM Shen Salas MD - 08/20/2023 7:54 AM EDT Note Date & Type Note Facility 12-11-2023 History of Present illness Narrative Images from the original note were not included. Cardiac Electrophysiology Office Visit Referred by Dr. Arline herrera. provider found for No chief complaint on file. HPI: Keith Suazo is a 68 y.o. year old male patient with h/o h/o PVC (Metoprolol 25mg BID - stopped due to bradycardia), CAD h/o CABG (Dec 2013) in setting of ACS, HTN, DM (Jardiance), atrial fibrillation s/p ablation presenting today for follow-up Overall patient reports has been doing well but states that today he has been having a little more palpitations feels like they are his PVCs. He otherwise denies any episodes of chest pain, dizziness loss of conscious. Reports has not had any sensations similar to his atrial fibrillation. PMHx/PSHx: As above Tobacco Cigar - 1/day; alcohol - Occasional, caffeine use, drug use - denies FamHx: Father - Lung CA, Mother - DM D@67 from vascular disease, Sister - Lewy body dementia D in 80s, Brother - CO ,CABG in 60s. Children - Healthy Objective Allergies Allergen Reactions Fentanyl Swelling Tongue swelling Hydrocodone Anaphylaxis Vicotuss Swelling Swelling of lips, tongue due to hydrocodone Codeine Unknown Escitalopram Other Unstable BP Doxycycline Photosensitivity and Rash Penicillins Hives and Rash Current Outpatient Medications Medication Instructions acetaminophen (TYLENOL) 1,000 mg, oral, Every 6 hours PRN apixaban (ELIQUIS) 5 mg, oral, 2 times daily aspirin 81 mg chewable tablet 1 tablet, oral, Daily atorvastatin (LIPITOR) 20 mg, oral, Nightly, Atorvastatin Calcium 20 MG Oral Tablet Refills: 0 Start : 30-Jul-2022 Active calcium carbonate-vitamin D3 600 mg-20 mcg (800 unit) tablet 1 tablet, oral, 2 times daily diphenhydrAMINE (BENADRYL ALLERGY) 25 mg, oral, Nightly PRN empagliflozin (JARDIANCE) 25 mg, oral, Daily, Jardiance 25 MG Oral Tablet Refills: 0 Start : 30-Jul-2022 Active
hydroCHLOROthiazide (HYDRODIURIL) 12.5 mg, oral, Daily PRN icosapent ethyL (Vascepa) 1 gram capsule 2 capsules, oral, 2 times daily insulin aspart (NOVOLOG U-100 INSULIN ASPART) 12 Units, subcutaneous, Before meals insulin degludec (TRESIBA U-100 INSULIN) 64 Units, subcutaneous, Daily insulin glargine (Lantus Solostar U-100 Insulin) 100 unit/mL (3 mL) pen Every 24 hours levothyroxine (Synthroid, Levoxyl) 88 mcg tablet 1 tablet, oral, Daily levothyroxine (SYNTHROID, LEVOXYL) 112 mcg, oral, Daily levothyroxine (SYNTHROID, LEVOXYL) 125 mcg, oral, Daily levothyroxine (Tirosint) 88 mcg capsule 1 capsule, oral, Daily before breakfast, On an empty stomach losartan (COZAAR) 50 mg, oral, Daily metoprolol succinate XL (TOPROL-XL) 50 mg, oral, 2 times daily multivitamin (MULTIPLE VITAMINS ORAL) 1 tablet, oral, Daily mv,paramjit,min/iron/folic acid/lut (COMPLETE MULTI ORAL) oral, Take as directed omeprazole (PRILOSEC) 20 mg, oral, Every other day OneTouch Verio test strips strip test blood sugar EVERY DAY DIRECTED
Visit Vitals Smoking Status Every Day Physical Exam Vitals reviewed: Virtual visit, exam limited. Constitutional: General: He is not in acute distress. Appearance: Normal appearance. HENT: Head: Normocephalic. Pulmonary: Effort: Pulmonary effort is normal. Neurological: Mental Status: He is alert. My Interpretation of Reviewed Study(s): Echo (April 2022): Normal left ventricular function with an EF of 60%. No regional wall motion normalities. Normal left atrial and right atrial size. No hemodynamically significant valvular pathology. No pericardial effusion noted Coronary Angiogram (April 2022): GARCIA patent. Mild luminal irregularities. Previous SVG grafts patent. 30 Day Monitor (May 2022): Sinus rhythm with PVC and PAC burden less than 1%. Episode of NSVT noted with a right bundle branch appearing morphology. 68% of the time was spent with HR <60bpm. Avg HR 57bpm with range (47-98bpm). [id number] Score Age 65-74: 1 Sex Male: 0 CHF History No: 0 HTN Yes: 1 Stroke/TIA/Thromboembolism No: 0 Vascular Dz: CAD/PAD/Aortic Plaque Yes: 1 DM Yes: 1 Total Score 4 Assessment/Plan #NSVT #CAD h/o CABG #Sinus Bradycardia s/p dcPPM Patient has a Medtronic Dual chamber ICD. Anticipated battery longevity 10.6yrs (as of 11/04/23). RA pacing 98.3%, RV pacing <0.1%. Arrhythmias noted on interrogation: Note, no AF April 2023 Lead parameters stable with steady impedance and thresholds noted: stable -c/t to follow with device clinic as scheduled #Paroxysmal atrial fibrillation s/p RFA PVI (08/20/2023) -AF Dx History: April 2023 on device - few short episodes but some lasting 30mins; h/o Cardioversion: No; AAD Use: Amiodarone 200mg (current) -Anticoagulation use: Apixaban 5mg BID (current) - h/o Ablation: Jul 2023 -[id number] Score: 4 -c/w AC: Apixaban 5mg BID -Stop Amiodarone -Plan for 7 days monitor in 1 month #PVC #Palpitations -70 monitor assess PVC burden if elevated then may need to consider antiarrhythmics versus RFA Return to Clinic: Patient should return to the EP Clinic 2-4 weks after monitor is complete as virtual visit uH Salas MD [facility] Cardiac Electrophysiology [email or web address] Disclaimer: This note was dictated by speech recognition, and every effort has been made to prevent any error in route salesperson, however minor errors may be present documented in this encounter [facility] Work Phone: 10-07-2023 History of Present illness Narrative Cardiac Electrophysiology Office Visit Referred by Hu Power MD for Chief Complaint Patient presents with Atrial Fibrillation HPI: Keith Suazo is a 67 y.o. year old male patient with h/o h/o PVC (Metoprolol 25mg BID - stopped due to bradycardia), CAD h/o CABG (Dec 2013) in setting of ACS, HTN, DM (Jardiance), atrial fibrillation s/p ablation presenting today for follow-up Patient reports she has been feeling okay. He still reports intermittent palpitations daily lasting a minute or 2 but states that it feels different from his atrial fibrillation and often feels like PVC . He denies any episodes of chest pain dizziness loss of consciousness. He reports has been taking all his medications without any issues. PMHx/PSHx: As above Tobacco Cigar - 1/day; alcohol - Occasional, caffeine use, drug use - denies FamHx: Father - Lung CA, Mother - DM D@67 from vascular disease, Sister - Lewy body dementia D in 80s, Brother - [place] ,CABG in 60s. Children - Healthy Objective Allergies Allergen Reactions Hydrocodone Anaphylaxis and Swelling Codeine Unknown Fentanyl Swelling Doxycycline Photosensitivity and Rash Penicillins Hives and Rash Current Outpatient Medications Medication Instructions acetaminophen (TYLENOL) 1,000 mg, oral, Every 6 hours PRN amiodarone (PACERONE) 200 mg, oral, Daily apixaban (ELIQUIS) 5 mg, oral, 2 times daily aspirin 81 mg chewable tablet 1 tablet, oral, Daily atorvastatin (LIPITOR) 20 mg, oral, Nightly, Atorvastatin Calcium 20 MG Oral Tablet Refills: 0 Start : 30-Jul-2022 Active calcium carbonate-vitamin D3 600 mg-20 mcg (800 unit) tablet 1 tablet, oral, 2 times daily diphenhydrAMINE (BENADRYL ALLERGY) 25 mg, oral, Nightly PRN empagliflozin (JARDIANCE) 25 mg, oral, Daily, Jardiance 25 MG Oral Tablet Refills: 0 Start : 30-Jul-2022 Active
glipiZIDE XL (GLUCOTROL XL) 5 mg, oral, Daily hydroCHLOROthiazide (HYDRODIURIL) 12.5 mg, oral, Daily PRN icosapent ethyL (Vascepa) 1 gram capsule 2 capsules, oral, 2 times daily insulin aspart (NOVOLOG U-100 INSULIN ASPART) 12 Units, subcutaneous, Before meals insulin degludec (TRESIBA U-100 INSULIN) 64 Units, subcutaneous, Daily insulin glargine (Lantus Solostar U-100 Insulin) 100 unit/mL (3 mL) pen Every 24 hours levothyroxine (Synthroid, Levoxyl) 88 mcg tablet 1 tablet, oral, Daily levothyroxine (SYNTHROID, LEVOXYL) 112 mcg, oral, Daily levothyroxine (SYNTHROID, LEVOXYL) 125 mcg, oral, Daily levothyroxine (Tirosint) 88 mcg capsule 1 capsule, oral, Daily before breakfast, On an empty stomach losartan (COZAAR) 50 mg, oral, Daily metoprolol succinate XL (TOPROL-XL) 25 mg, oral, Daily multivitamin (MULTIPLE VITAMINS ORAL) 1 tablet, oral, Daily mv,paramjit,min/iron/folic acid/lut (COMPLETE MULTI ORAL) oral, Take as directed omeprazole (PRILOSEC) 20 mg, oral, Every other day OneTouch Verio test strips strip test blood sugar EVERY DAY DIRECTED
Visit Vitals BP 120/84 Pulse 52 Ht 1.676 m (5' 6 ) Wt 101 kg (222 lb) SpO2 94% BMI 35.83 kg/m Smoking Status Every Day BSA 2.17 m Physical Exam Vitals reviewed. Constitutional: Appearance: Normal appearance. HENT: Head: Normocephalic and atraumatic. Eyes: Pupils: Pupils are equal, round, and reactive to light. Cardiovascular: Rate and Rhythm: Normal rate and regular rhythm. Pulses: Normal pulses. Heart sounds: Normal heart sounds. No murmur heard. Comments: left sided implant healed well, no ecchymosis, hematoma or drainage noted Pulmonary: Effort: Pulmonary effort is normal. No respiratory distress. Breath sounds: Normal breath sounds. No wheezing. Abdominal: Tenderness: There is no abdominal tenderness. Musculoskeletal: General: No swelling. Comments: Bilateral groin exams without any signs of ecchymosis, hematoma or bruit. Skin: General: Skin is warm and dry. Neurological: General: No focal deficit present. Mental Status: He is alert. Psychiatric: Mood and Affect: Mood normal. My Interpretation of Reviewed Study(s): Echo (April 2022): Normal left ventricular function with an EF of 60%. No regional wall motion normalities. Normal left atrial and right atrial size. No hemodynamically significant valvular pathology. No pericardial effusion noted Coronary Angiogram (April 2022): GARCIA patent. Mild luminal irregularities. Previous SVG grafts patent. 30 Day Monitor (May 2022): Sinus rhythm with PVC and PAC burden less than 1%. Episode of NSVT noted with a right bundle branch appearing morphology. 68% of the time was spent with HR <60bpm. Avg HR 57bpm with range (47-98bpm). [id number] Score Age 65-74: 1 Sex Male: 0 CHF History No: 0 HTN Yes: 1 Stroke/TIA/Thromboembolism No: 0 Vascular Dz: CAD/PAD/Aortic Plaque Yes: 1 DM Yes: 1 Total Score 4 Assessment/Plan #NSVT #CAD h/o CABG #Sinus Bradycardia s/p dcPPM Patient has a Medtronic Dual chamber ICD. Anticipated battery longevity 10.7yrs. RA pacing 93%, RV pacing <0.1%. Arrhythmias noted on interrogation: No AF since April 2023 Lead parameters stable with steady impedance and thresholds noted: Stable - c/t to follow with device clinic as scheduled #Paroxysmal atrial fibrillation s/p RFA PVI (08/20/2023) -AF Dx History: April 2023 on device - few short episodes but some lasting 30mins -h/o Cardioversion: No -AAD Use: Amiodarone 200mg (current) -Anticoagulation use: Apixaban 5mg BID (current) - h/o Ablation: Jul 2023 -[id number] Score: 4 -c/w AC: Apixaban 5mg BID -Unclear if patient's palpitations or true atrial fibrillation or just PVCs. PVC counter from device did show single PVC rate of 69/h but lifetime total of 25.6/h -We will evaluate at next visit after device check if no atrial fibrillation we will discontinue amiodarone and then potentially do a 30-day monitor for true PVC burden Return to Clinic: Patient should return to the EP Clinic in 3 months Hu Salas MD [facility] Cardiac Electrophysiology [email or web address] Disclaimer: This note was dictated by speech recognition, and every effort has been made to prevent any error in route salesperson, however minor errors may be present documented in this encounter [facility] Work Phone: 08-20-2023 Note Pre-procedure Verifi cation and Time Out: Pre-Procedure Verification and Time Out: Procedure Locationprocedure area HUDDLE - Pre-procedure Verificationcompleted TIME OUT - Final Verificationcompleted immediately prior to procedure start DEBRIEFcompleted General Information: Anesthesia Critical Care: Anesthesia Critical Care Date/Time of Procedure: 20-Aug-2023 08:30 Indication(s)/Pre Procedure Diagnoses: Paroxysmal Atrial Fibrillation Post-Procedure Diagnosis: Paroxysmal Atrial Fibrillation Procedure Name: RFA AF - PVI, 3D mapping, LA pacing and recording, Intracardiac echo, transeptal catheterization, Ultrasounds guided vascular access Procedure performed by: wy Channeling Machine Runner(s): none Estimated Blood Loss (mL): 15cc Specimen: no Informed Consent: written consent obtained Procedure Details: Procedure Details: Patient was brought to the EP lab in a fasting state. Pre-procedure ECG in holding area was noted to be atrial paced. Patient was prepped and draped in the usual sterile manner. Anesthesia sedated and intubated the patient without any acute complications. Radial arterial line was placed for continuous hemodynamic monitoring. Sarabia catheter was placed for strict intake and output measurement. Pre-procedure the pt's Cardiovascular Implantable Electronic Device was interrogated and re-programmed to optimize the planned electrophysiological procedure The right common femoral vein was evaluated with ultrasound, it was normal in size and anatomy. The vein was accessed using ultrasound guidance and a 18G Cook needle, with direct visualization of the needle at all times. Similarly the left common femoral vein was also evaluated with ultrasound and access was obtained with ultrasound guidance and direct visualization. Images were saved for both vein accesses. Over the guidewires an 8.5F and 10F sheaths were inserted into the right femoral vein. A 7F sheath was also introduced into the left femoral vein. 81259 units of heparin were given and a drip at 500 units/hr was initiated. Under fluoroscopic guidance a intracardiac echocardiogram catheter was introduced into the right atrium. The right atrium, left atrium, left atrial appendage, RV were evaluated. No obvious structural abnormalities were noted. Initial imaging revealed trivial pericardial effusion. Via the 7F femoral venous access a octapolar catheter was introduced and placed into the distal coronary sinus. The right femoral 8F vein access was then switched to a deflectable sheath (Shoptimise Agillis). Under fluoroscopic and intracardiac echo guidance a long BRK needle was introduced via the Agillis sheath and a single transseptal catheterization was performed. Guidewire was then introduced through the transseptal puncture and advanced to the left superior pulmonary vein. Using the guidewire as a rail, septostomy site was dilated to allow the sheath to be placed into the left atrium. The deflectable sheath was connected to a pressurized bag of heparinized saline with slow continuous infusion. A 3D shell using the 3D electroanatomic mapping was made with the mapping catheter. Areas of fractionated signals, low voltage and Anatomy/OS of pulmonary veins were marked. At this point the Agillis was brought back into the left atrium and the high-definition mapping catheter was removed. The ablation catheter was then introduced via the sheath into the left atrium. We then performed the ablation lesions. During ablation esophageal temperature monitoring was utilized throughout the procedure. The temperature range noted during the procedure was from 35.2 to 36.4 degrees Celsius. For majority of the lesions high power short duration lesions were performed with power of 35W and 8-10s lesions along posterior wall and roof, and 12-20s lesions along the anterior wall. Lesions were tagged using Impedance change and target impedance drop for a abation lesion was atleast 10ohms. Along the anterior aspect of the right pulmonary veins we mapped for phrenic capture. Ablation points along this region were performed in a manner to avoid any areas with phrenic capture. We confirmed before applying lesions that there was no phrenic capture in areas of the lesions being performed. Initial WACA lesions were performed and though there was no signal within LSVP and LIPC, there was no exit block. We then proceeded with the right sided veins and there was some anterior connections noted on the Right pulm veins. We then exchanged the ablation catheter for the HD Grid and a detailed map was created of the LA. Omnipolar signals and activating was evaluated to assess for leaks within the veins. The HD Grid was exchanged back for the TactiCath and ablation lesions were performed to allow for vein isolation. Entrance and exit block was confirmed by pacing from CS catheter and ablation catheter within the veins. RFA A (more content not included)... [facility] 08-20-2023 Note History of Present I llness: History Present Illness: Reason for surgery: Atrial fibrillation HPI: 66 year-old M with h/o PVC (Metoprolol 25mg BID - stopped due to bradycardia), CAD h/o CABG (Dec 2013) in setting of ACS, HTN, DM (Jardiance) presenting today for AF ablation Allergies: Allergies: hydrocodone: Anaphylaxis penicillin: Rash doxycycline: Rash Intolerances: Demerol: Nausea/Vomiting Home Medication Review: Home Medications Reviewed: yes Impression/Procedure: Impression and Planned Procedure: Paroxysmal Atrial Fibrillation, planned RFA ERAS (Enhanced Recovery After Surgery): ERAS Patient: no Physical Exam by System: Constitutional: Well developed, awake/alert/oriented x3, no distress, alert and cooperative Respiratory/Thorax: Patent airways, CTAB, normal breath sounds with good chest expansion, thorax symmetric, midline incision Cardiovascular: Regular, rate and rhythm, no murmurs, 2+ equal pulses of the extremities, normal S 1and S 2 Neurological: alert and oriented x3, intact senses, motor, response and reflexes, normal strength Skin: Warm and dry, no lesions, no rashes Consent: COVID-19 Consent: COVID-19 Risk ConsentSurgeon has reviewed daniel risks related to the risk of maryanne COVID-19 and if they contract COVID-19 what the risks are. Electronic Signatures: Hu Salas) (Signed 20-Aug-2023 07:56) Authored: History of Present Illness, Allergies, Home Medication Review, Impression/Procedure, ERAS, Physical Exam, Consent, Note Completion Last Updated: 20-Aug-2023 07:56 by Hu Salas) [facility] 08-20-2023 History and physical note History of Present Illness: History Present Illness: Reason for surgery: Atrial fibrillation HPI: 66 year-old M with h/o PVC (Metoprolol 25mg BID - stopped due to bradycardia), CAD h/o CABG (Dec 2013) in setting of ACS, HTN, DM (Jardiance) presenting today for AF ablation Allergies: Allergies: hydrocodone : Anaphylaxis penicillin : Rash doxycycline : Rash Intolerances: Demerol : Nausea/Vomiting Home Medication Review: Home Medications Reviewed: yes Impression/Procedure: Impression and Planned Procedure: Paroxysmal Atrial Fibrillation, planned RFA ERAS (Enhanced Recovery After Surgery): ERAS Patient: no Physical Exam by System: Constitutional: Well developed, awake/alert/oriented x3, no distress, alert and cooperative Respiratory/Thorax: Patent airways, CTAB, normal breath sounds with good chest expansion, thorax symmetric, midline incision Cardiovascular: Regular, rate and rhythm, no murmurs, 2+ equal pulses of the extremities, normal S 1and S 2 Neurological: alert and oriented x3, intact senses, motor, response and reflexes, normal strength Skin: Warm and dry, no lesions, no rashes Consent: COVID-19 Consent: COVID-19 Risk Consent Surgeon has reviewed daniel risks related to the risk of maryanne COVID-19 and if they contract COVID-19 what the risks are. Electronic Signatures: Hu Salas) (Signed 20-Aug-2023 07:56) Authored: History of Present Illness, Allergies, Home Medication Review, Impression/Procedure, ERAS, Physical Exam, Consent, Note Completion Last Updated: 20-Aug-2023 07:56 by Hu Salas) [facility] Work Phone: 08-20-2023 History and physical note History of Present Illness: History Present Illness: Reason for surgery: Atrial fibrillation HPI: 66 year-old M with h/o PVC (Metoprolol 25mg BID - stopped due to bradycardia), CAD h/o CABG (Dec 2013) in setting of ACS, HTN, DM (Jardiance) presenting today for AF ablation Allergies: Allergies: hydrocodone : Anaphylaxis penicillin : Rash doxycycline : Rash Intolerances: Demerol : Nausea/Vomiting Home Medication Review: Home Medications Reviewed: yes Impression/Procedure: Impression and Planned Procedure: Paroxysmal Atrial Fibrillation, planned RFA ERAS (Enhanced Recovery After Surgery): ERAS Patient: no Physical Exam by System: Constitutional: Well developed, awake/alert/oriented x3, no distress, alert and cooperative Respiratory/Thorax: Patent airways, CTAB, normal breath sounds with good chest expansion, thorax symmetric, midline incision Cardiovascular: Regular, rate and rhythm, no murmurs, 2+ equal pulses of the extremities, normal S 1and S 2 Neurological: alert and oriented x3, intact senses, motor, response and reflexes, normal strength Skin: Warm and dry, no lesions, no rashes Consent: COVID-19 Consent: COVID-19 Risk Consent Surgeon has reviewed daniel risks related to the risk of maryanne COVID-19 and if they contract COVID-19 what the risks are. Electronic Signatures: Hu Salas) (Signed 20-Aug-2023 07:56) Authored: History of Present Illness, Allergies, Home Medication Review, Impression/Procedure, ERAS, Physical Exam, Consent, Note Completion Last Updated: 20-Aug-2023 07:56 by Hu Salas) documented in this encounter [facility] Work Phone[facility] ICD (implantable cardioverter-defibrillator) in place- Primary Paroxysmal atrial fibrillation (CMS/HCC) Atrial fibrillation PVC's (premature ventricular contractions) Other premature beats History of coronary artery bypass graft x 2 documented in this encounter [facility] Work Phone: Evaluation note* Diagnosis Paroxysmal atrial fibrillation (CMS/HCC) Atrial fibrillation documented in this encounter [facility] Work Phone: Evaluation note* Diagnosis ICD (implantable cardioverter-defibrillator) in place PVC's (premature ventricular contractions) Other premature beats documented in this encounter [facility] Work Phone: Evaluation note* Diagnosis PVC's (premature ventricular contractions)- Primary Other premature beats Paroxysmal atrial fibrillation (CMS/HCC) Atrial fibrillation ICD (implantable cardioverter-defibrillator) in place documented in this encounter [facility] Work Phone: Summary Purpose Family History No Family History Records FoundUnknown Family Member Name Dates Details Family history of coronary a rtery disease: Mother, Father, Sister, Brother(V17.3, Z82.49) Status:Active Family history of type 2 jonathan betes mellitus: Mother, Father, Sister, Brother(V18.0, Z83.3) Status:Active Family history of atrial fib rillation: Other(V17.49, Z82.49) Status:Active Family history of lung cance r: Father(V16.1, Z80.1) Status:Active Family history of malignant neoplasm of prostate: Uncle(V16.42, Z80.42) Status:Active Unknown Family Member Name Dates Details Family history of coronary a rtery disease: Mother, Father, Sister, Brother(V17.3, Z82.49) Status:Active Family history of type 2 jonathan betes mellitus: Mother, Father, Sister, Brother(V18.0, Z83.3) Status:Active Family history of atrial fib rillation: Other(V17.49, Z82.49) Status:Active Family history of lung cance r: Father(V16.1, Z80.1) Status:Active Family history of malignant neoplasm of prostate: Uncle(V16.42, Z80.42) Status:Active Unknown Family Member Name Dates Details Family history of coronary a rtery disease: Mother, Father, Sister, Brother(V17.3, Z82.49) Status:Active Family history of type 2 jonathan betes mellitus: Mother, Father, Sister, Brother(V18.0, Z83.3) Status:Active Family history of atrial fib rillation: Other(V17.49, Z82.49) Status:Active Family history of lung cance r: Father(V16.1, Z80.1) Status:Active Family history of malignant neoplasm of prostate: Uncle(V16.42, Z80.42) Status:Active Unknown Family Member Name Dates Details Family history of coronary a rtery disease: Mother, Father, Sister, Brother(V17.3, Z82.49) Status:Active Family history of type 2 jonathan betes mellitus: Mother, Father, Sister, Brother(V18.0, Z83.3) Status:Active Family history of atrial fib rillation: Other(V17.49, Z82.49) Status:Active Family history of lung cance r: Father(V16.1, Z80.1) Status:Active Family history of malignant neoplasm of prostate: Uncle(V16.42, Z80.42) Status:Active Advance Directives No Advanced Directives Records FoundNo Advanced Directives Records FoundNo Advanced Directives Records FoundNo Advanced Directives Records FoundNo Advanced Directives Records FoundNo Advanced Directives Records FoundNo Advanced Directives Records FoundNo Advanced Directives Records Found Chief Complaint S/P ICD insertion wound check. Steri strips intact. Very minor residual bruising. Does states he feels flutters while in vehicle. Per Dr. Salas, he will get a remote check from [facility]. Also his BP is high. He will send in losartan for pt.KEITH GRANTCHEY is being seen for a 3 month follow-up of palpitations and ventricular tachycardia.[facility] Reason for Referral Specialty Diagnoses / Procedures Referred By Jordyn brizuela Referred To Contact Cardiology Diagnoses ICD (implantable cardioverter-defibrillator) in place PVC's (premature ventricular contractions) Procedures Cardiac Device Check - In Clinic Hu Salas MD [id number], [address] [address] Referral ID Status Reason Start Date Expiration Date Visits Requested Visits Authorized [id number] Pending Review Perform Procedure 3 11/03/2024 2 2 Specialty Diagnoses / Procedures Referred By Jordyn brizuela Referred To Contact Cardiology Diagnoses PVC's (premature ventricular contractions) Paroxysmal atrial fibrillation (CMS/HCC) Procedures Holter Or Event Application Support Developer Hu Salas MD [address], [address] [address] Referral ID Status Reason Start Date Expiration Date V isits Requested Visits Authorized [id number] Pending Review 12/11/2023 12/10/2024 1 1 Additional Source Comments Source Comments (unrecognize d section and content) In the event this informatio n is protected by the Federal Confidentiality of Alcohol and Drug Abuse Patient Records regulations: The Federal rules restrict any use of the information to criminally investigate or prosecute any alcohol or drug abuse patient.[facility] the event this information is protected by the Federal Confidentiality of Alcohol and Drug Abuse Patient Records regulations: The Federal rules restrict any use of the information to criminally investigate or prosecute any alcohol or drug abuse patient.[facility] Reason for Visit (unrecogniz ed section and content) Reason Comments Patient Question Reason Comments Atrial Fibrillation Reason Comments Other AFIB ABLATION 27458 AFIB I48.0 Specialty Diagnoses / Procedures Referred By Contac t Referred To Contact Cardiology Diagnoses ICD (implantable cardioverter-defibrillator) in place PVC's (premature ventricular contractions) Procedures Cardiac Device Check - In Clinic Hu Salas MD [address] [facility] [address] [place] [address] Referral ID Status Reason Start Date Expiration Date Visits Requested Visits Authorized [id number] Pending Review Perform Procedure 3 11/03/2024 2 2 Care Teams (unrecognized sec tion and content) Content Development Specialist Relationship Specialty Start Date End Date Claudia Low [address] [place] [address] PCP - General Family Practice 01/26/20 [facility] [address] [place] [id number] Specialty Lead Javascript Engineer Cardiology 01/23/20 Scooby Swartz MD [address] [place] [address] Specialty Lead Javascript Engineer Cardiology 05/17/22 Content Development Specialist Relationship Specialty Start Date End Date Claudia Low MD [address] [place] [address] PCP - General 08/01/20 Content Development Specialist Relationship Specialty Start Date End Date Claudia Low MD [address] [place] [address] PCP - General 08/01/20 Content Development Specialist Relationship Specialty Start Date End Date Claudia Low MD [address] [place] [address] PCP - General 08/01/20 Content Development Specialist Relationship Specialty Start Date End Date Claudia Low MD [address] [place] [address] PCP - General 08/01/20 (unrecognized sect ion and content) No Status Records FoundNo Status Records FoundNo Status Records FoundNo Status Records FoundNo Status Records FoundNo Status Records FoundNo Status Records FoundNo Status Records Found INFORMATION SOURCE (unrecogn ized section and content) DATE CREATED AUTHOR AUTHOR'S ORGANIZ ATION 07/11/2023 [facility] DATE CREATED AUTHOR AUTHOR'S ORGANIZ ATION 07/18/2023 [facility] DATE CREATED AUTHOR AUTHOR'S ORGANIZ ATION 07/18/2023 [employer] DATE CREATED AUTHOR AUTHOR'S ORGANIZ ATION 09/05/2023 [facility] DATE CREATED AUTHOR AUTHOR'S ORGANIZ ATION 10/12/2023 [facility] DATE CREATED AUTHOR AUTHOR'S ORGANIZ ATION 11/28/2023 [facility] DATE CREATED AUTHOR AUTHOR'S ORGANIZ ATION 12/14/2023 [facility] Ambulatory FOR RECORDS PERTAINING TO PATIENTS WHO ARE OR HAVE BEEN ENROLLED IN A CHEMICAL DEPENDENCY/SUBSTANCEABUSE PROGRAM, SOME INFORMATION MAY BE OMITTED. This clinical summary was aggregated from multiple sources. Caution should be exercised in using it in the provision of clinical care. This summary normalizes information from multiple sources, and as a consequence, information in this document may materially change the coding, format and clinical context of patient data. In addition, data may be omitted in some cases. CLINICAL DECISIONS SHOULD BE BASED ON THE PRIMARY CLINICAL RECORDS. [facility] [employer] provides no warranty or guarantee of the accuracy or completeness of information in this document.
[2023-12-16 10:08] LABS: Color, Urine Yellow (Yellow); Glucose, Dipstick 1000 mg/dl (Normal); Ketone-Dipstick Negative (Negative); Leukocyte Esterase-Dipstick 25 /ul (Negative); Nitrite-Dipstick Negative (Negative); Occult Blood-Urine Negative /ul (Negative); Protein-Dipstick 30 mg/dl (Negative); Urine Bilirubin Dipstick Negative (Negative); Urine Clarity Clear (Clear); Urine Urobilinogen 1 mg/dl (Normal)
[2023-12-16 10:10] LABS: Absolute Lymphocyte Count 1.04 X10^3/uL (0.83-4.51); Absolute Neutrophil Count 3.7 X10^3/uL (2.0-7.7); Basophil# 0.06 X10^3/uL; Basophil% 1.1 % (0-1); Eosinophil# 0.15 X10^3/uL; Eosinophils% 2.7 % (0-5); Hematocrit 48.3 % (40-54); Hemoglobin 15.8 g/dL (13.0-16.5); Lymphocyte # 1.04 X10^3/ul (0.83-4.51); Lymphocyte % 18.4 % (19-41); Mean Corp Hgb Conc 32.7 g/dL (32-36); Mean Corpuscular Hgb 31.5 pg (27.0-32.0); Mean Corpuscular Volume 96.2 fL (80-94); Mean Platelet Vol. 9.4 fl (6.2-12.0); Monocyte# 0.61 X10^3/uL; Monocyte% 10.8 % (0-10); NRBC Flagged by Analyzer 0 % (0-5); Neutrophil % 65.4 % (47-70); Platelet Count 230 K/mm3 (150-450); RBC Distribution Width CV 14.2 % (11.6-14.6); RBC Distribution Width SD 50.3 fl (35.1-43.9); Red Blood Count 5.02 M/mm3 (4.6-6.2); White Blood Count 5.7 K/mm3 (4.4-11.0)
[2023-12-16 10:23] LABS: Squamous Epithelial Cells - UA 0-5 SEEN /hpf (0-5); White Blood Cells 5-10 SEEN /hpf (0-5)
[2023-12-16 10:37] LABS: PTHIN 81.3 pg/mL (18.4-80.1)
[2023-12-16 11:01] LABS: AST(SGOT) 43 U/L (15-37); Alanine Aminotransfer ALT/SGPT 73 U/L (16-61); Albumin, Serum 3.7 g/dL (3.2-5.0); Alkaline Phosphatase 112 U/L (45-117); Anion Gap 5 (5-15); BUN 18 mg/dL (7-18); BUN/Creat Ratio 13.7 RATIO (10-20); Calcium,Total 9.2 mg/dL (8.5-10.1); Chloride 107 mmol/L (98-107); Cholesterol 147 mg/dL (200); Creatinine, Serum 1.31 mg/dL (0.70-1.30); EST Glomerular Filtration Rate 58 mL/min (>60); Est Glom Filt Rate - Afr Amer 70 mL/min (>60); Globulin 3.8 g/dL (2.2-4.2); Glucose 107 mg/dL (74-106); High Density Lipoprotein 41 mg/dL; Magnesium 2.4 mg/dL (1.6-2.6); Phosphorus 3.3 mg/dL (2.5-4.9); Potassium 3.9 mmol/L (3.5-5.1); Protein, Total 7.5 g/dL (6.4-8.2); Sodium Level 137 mmol/L (136-145); T4 Free Direct 1.33 ng/dL (0.76-1.46); Thyroid Stim Hormone (TSH) 5.09 uIU/mL (0.358-3.74); Triglycerides 220 mg/dL; Very Low Density Lipoprotein 44 mg/dL (5-40)
[2023-12-16 11:24] LABS: Microalbumin:Creatinine Ratio 118.2 mg/g CRE (<30 mg/g CRE); Protein, Urine (Random) 48.4 mg/dL (<11.9); Protein:Creat Ratio 314 mg/g CRE (0-200)
[2023-12-16 12:17] LABS: Hemoglobin A1c 6.3 % (3.8-5.6)
== END | disposition home or self-care (01) ==
LOC: MTLAB 09:08
PROVIDERS: PCP Family Medicine; Referring Provider Family Medicine; Visit Provider Family Medicine
DX: E03.8 Other specified hypothyroidism (principal); E11.22 Type 2 diabetes mellitus with diabetic chronic kidney disease; E11.69 Type 2 diabetes mellitus with other specified complication; N18.2 Chronic kidney disease, stage 2 (mild); I49.3 Ventricular premature depolarization
CPT/HCPCS: 36415; 80053; 80061; 81001; 82043; 82570; 83036; 83735; 83970; 84100; 84156; 84439; 84443; 85025

== ENCOUNTER → 2024-01-06 | Outpatient (CLI) | payer MEDICARE, OTHER, SELFPAY ==
[2024-01-06 12:33] LABS: Albumin, Serum 3.9 g/dL (3.2-5.0); BUN 20 mg/dL (7-18); BUN/Creat Ratio 15.2 RATIO (10-20); Calcium,Total 9.6 mg/dL (8.5-10.1); Chloride 102 mmol/L (98-107); Creatinine, Serum 1.32 mg/dL (0.70-1.30); EST Glomerular Filtration Rate 57 mL/min (>60); Est Glom Filt Rate - Afr Amer 69 mL/min (>60); Glucose 123 mg/dL (74-106); Phosphorus 4.2 mg/dL (2.5-4.9); Potassium 4.2 mmol/L (3.5-5.1); Sodium Level 138 mmol/L (136-145)
[2024-01-06 12:42] LABS: Protein, Urine (Random) 42.8 mg/dL (<11.9); Protein:Creat Ratio 274 mg/g CRE (0-200)
== END | disposition home or self-care (01) ==
LOC: MTLAB 10:15
PROVIDERS: PCP Family Medicine; Referring Provider Internal Medicine Nephrology; Visit Provider Internal Medicine Nephrology
DX: E11.22 Type 2 diabetes mellitus with diabetic chronic kidney disease (principal); N18.31 Chronic kidney disease, stage 3a
CPT/HCPCS: 36415; 80069; 82570; 84156

== ENCOUNTER → 2024-03-16 | Outpatient (CLI) | payer MEDICARE, OTHER, SELFPAY ==
[2024-03-16 10:15] LABS: Bacteria 0 SEEN /hpf (None Seen); Mucous, Urine 0 SEEN /hpf (<or=2+); Red Blood Cells-Urine 0 SEEN /hpf (0-5); Squamous Epithelial Cells - UA 0 SEEN /hpf (0-5); White Blood Cells 0 SEEN /hpf (0-5)
[2024-03-16 12:21] LABS: Absolute Lymphocyte Count 1.04 X10^3/uL (0.83-4.51); Absolute Neutrophil Count 5.8 X10^3/uL (2.0-7.7); Basophil# 0.05 X10^3/uL; Basophil% 0.6 % (0-1); Eosinophil# 0.15 X10^3/uL; Eosinophils% 1.9 % (0-5); Hematocrit 48.2 % (40-54); Hemoglobin 16.3 g/dL (13.0-16.5); Lymphocyte # 1.04 X10^3/ul (0.83-4.51); Lymphocyte % 13.2 % (19-41); Mean Corp Hgb Conc 33.8 g/dL (32-36); Mean Corpuscular Hgb 32.9 pg (27.0-32.0); Mean Corpuscular Volume 97.4 fL (80-94); Mean Platelet Vol. 9.7 fl (6.2-12.0); Monocyte# 0.76 X10^3/uL; Monocyte% 9.6 % (0-10); NRBC Flagged by Analyzer 0 % (0-5); Neutrophil # 5.83 X10^3/uL (2.7-7.7); Neutrophil % 73.9 % (47-70); Platelet Count 204 K/mm3 (150-450); RBC Distribution Width CV 12.7 % (11.6-14.6); RBC Distribution Width SD 44.9 fl (35.1-43.9); Red Blood Count 4.95 M/mm3 (4.6-6.2); White Blood Count 7.9 K/mm3 (4.4-11.0)
[2024-03-16 12:36] LABS: Color, Urine Yellow (Yellow); Glucose, Dipstick 1000 mg/dl (Normal); Ketone-Dipstick Negative (Negative); Leukocyte Esterase-Dipstick Negative /ul (Negative); Nitrite-Dipstick Negative (Negative); Occult Blood-Urine Negative /ul (Negative); Protein-Dipstick 15 mg/dl (Negative); Urine Bilirubin Dipstick Negative (Negative); Urine Clarity Clear (Clear); Urine Urobilinogen Normal (Normal)
[2024-03-16 12:41] LABS: Vitamin D,25 Hydroxy 40.2 ng/mL
[2024-03-16 13:00] LABS: AST(SGOT) 49 U/L (15-37); Alanine Aminotransfer ALT/SGPT 62 U/L (16-61); Albumin, Serum 3.8 g/dL (3.2-5.0); Alkaline Phosphatase 108 U/L (45-117); Anion Gap 7 (5-15); BUN 20 mg/dL (7-18); BUN/Creat Ratio 16.4 RATIO (10-20); Calcium,Total 8.9 mg/dL (8.5-10.1); Chloride 103 mmol/L (98-107); Cholesterol 156 mg/dL (200); Creatinine, Serum 1.22 mg/dL (0.70-1.30); EST Glomerular Filtration Rate 62 mL/min (>60); Est Glom Filt Rate - Afr Amer 76 mL/min (>60); Globulin 3.7 g/dL (2.2-4.2); Glucose 122 mg/dL (74-106); High Density Lipoprotein 35 mg/dL; Potassium 4.1 mmol/L (3.5-5.1); Protein, Total 7.5 g/dL (6.4-8.2); Sodium Level 135 mmol/L (136-145); T4 Free Direct 1.41 ng/dL (0.76-1.46); Thyroid Stim Hormone (TSH) 1.31 uIU/mL (0.358-3.74); Triglycerides 285 mg/dL; Very Low Density Lipoprotein 57 mg/dL (5-40)
[2024-03-16 13:15] LABS: Hemoglobin A1c 5.9 % (3.8-5.6)
[2024-03-16 13:44] LABS: Microalbumin,Random Urine 52.8 mg/L (NO RANGE EST.); Microalbumin:Creatinine Ratio 57.6 mg/g CRE (<30 mg/g CRE); Protein, Urine (Random) 22.6 mg/dL (<11.9); Protein:Creat Ratio 246 mg/g CRE (0-200)
== END | disposition home or self-care (01) ==
LOC: MFPLAB 10:09
PROVIDERS: PCP Family Medicine; Visit Provider Family Medicine
DX: E11.22 Type 2 diabetes mellitus with diabetic chronic kidney disease (principal); M15.9 Polyosteoarthritis, unspecified; N18.9 Chronic kidney disease, unspecified; E03.8 Other specified hypothyroidism; I49.3 Ventricular premature depolarization
CPT/HCPCS: 36415; 80053; 80061; 81001; 82043; 82306; 82570; 83036; 83735; 84156; 84439; 84443; 85025

== ENCOUNTER → 2024-07-13 | Outpatient (CLI) | payer MEDICARE, OTHER, SELFPAY ==
[2024-07-13 10:33] LABS: Absolute Lymphocyte Count 1.15 X10^3/uL (0.83-4.51); Absolute Neutrophil Count 4.4 X10^3/uL (2.0-7.7); Basophil# 0.06 X10^3/uL; Basophil% 0.9 % (0-1); Eosinophil# 0.24 X10^3/uL; Eosinophils% 3.7 % (0-5); Hematocrit 46.8 % (40-54); Hemoglobin 15.9 g/dL (13.0-16.5); Lymphocyte # 1.15 X10^3/ul (0.83-4.51); Lymphocyte % 17.8 % (19-41); Mean Corpuscular Hgb 32.9 pg (27.0-32.0); Mean Corpuscular Volume 96.9 fL (80-94); Mean Platelet Vol. 9.1 fl (6.2-12.0); Monocyte% 9.3 % (0-10); NRBC Flagged by Analyzer 0 % (0-5); Neutrophil # 4.37 X10^3/uL (2.7-7.7); Neutrophil % 67.5 % (47-70); Platelet Count 213 K/mm3 (150-450); RBC Distribution Width CV 12.9 % (11.6-14.6); RBC Distribution Width SD 46.3 fl (35.1-43.9); Red Blood Count 4.83 M/mm3 (4.6-6.2); White Blood Count 6.5 K/mm3 (4.4-11.0)
[2024-07-13 11:19] LABS: AST(SGOT) 54 U/L (15-37); Alanine Aminotransfer ALT/SGPT 64 U/L (16-61); Albumin, Serum 3.8 g/dL (3.2-5.0); Alkaline Phosphatase 115 U/L (45-117); Anion Gap 8 (5-15); BUN 20 mg/dL (7-18); BUN/Creat Ratio 16.1 RATIO (10-20); Calcium,Total 9.4 mg/dL (8.5-10.1); Chloride 104 mmol/L (98-107); Cholesterol 124 mg/dL (200); Creatinine, Serum 1.24 mg/dL (0.70-1.30); EST Glomerular Filtration Rate 61 mL/min (>60); Est Glom Filt Rate - Afr Amer 74 mL/min (>60); Globulin 3.7 g/dL (2.2-4.2); Glucose 130 mg/dL (74-106); High Density Lipoprotein 32 mg/dL; Potassium 4.2 mmol/L (3.5-5.1); Protein, Total 7.5 g/dL (6.4-8.2); Sodium Level 136 mmol/L (136-145); T4 Free Direct 1.23 ng/dL (0.76-1.46); Triglycerides 286 mg/dL; Very Low Density Lipoprotein 57 mg/dL (5-40)
[2024-07-13 11:31] LABS: Microalbumin,Random Urine 40.3 mg/L (NO RANGE EST.); Microalbumin:Creatinine Ratio 42.7 mg/g CRE (<30 mg/g CRE)
[2024-07-13 13:54] LABS: Hemoglobin A1c 6.1 % (3.8-5.6)
== END | disposition home or self-care (01) ==
LOC: MFPLAB 09:10
PROVIDERS: PCP Family Medicine; Visit Provider Family Medicine
DX: E11.8 Type 2 diabetes mellitus with unspecified complications (principal); E03.8 Other specified hypothyroidism
CPT/HCPCS: 36415; 80053; 80061; 82043; 82570; 83036; 84439; 84443; 85025

== ENCOUNTER → 2024-08-24 | Outpatient (CLI) | payer MEDICARE, OTHER, SELFPAY ==
[2024-08-24 12:25] LABS: Microalbumin,Random Urine 47.9 mg/L (NO RANGE EST.); Microalbumin:Creatinine Ratio 69.8 mg/g CRE (<30 mg/g CRE)
[2024-08-24 12:49] LABS: Albumin, Serum 3.7 g/dL (3.2-5.0); BUN 18 mg/dL (7-18); Calcium,Total 9.4 mg/dL (8.5-10.1); Chloride 105 mmol/L (98-107); EST Glomerular Filtration Rate 64 mL/min (>60); Est Glom Filt Rate - Afr Amer 77 mL/min (>60); Glucose 130 mg/dL (74-106); Phosphorus 3.7 mg/dL (2.5-4.9); Potassium 4.1 mmol/L (3.5-5.1); Sodium Level 136 mmol/L (136-145)
== END | disposition home or self-care (01) ==
LOC: MTLAB 10:17
PROVIDERS: PCP Family Medicine; Referring Provider Internal Medicine Nephrology; Visit Provider Internal Medicine Nephrology
DX: E11.22 Type 2 diabetes mellitus with diabetic chronic kidney disease (principal); N18.31 Chronic kidney disease, stage 3a
CPT/HCPCS: 36415; 80069; 82043; 82570

== ENCOUNTER → 2024-09-29 | Outpatient (CLI) | payer MEDICARE, OTHER, SELFPAY | END | disposition home or self-care (01) | LOC: CVS 13:48 | PROVIDERS: PCP Family Medicine; Referring Provider Family Medicine; Visit Provider Family Medicine | DX: R09.89 Other specified symptoms and signs involving the circulatory and respiratory systems (principal) | CPT/HCPCS: 93924 ==

== ENCOUNTER → 2024-12-17 | Outpatient (CLI) | payer MEDICARE, OTHER, SELFPAY ==
[2024-12-17 15:14] LABS: Absolute Lymphocyte Count 1.25 X10^3/uL (0.83-4.51); Absolute Neutrophil Count 3.3 X10^3/uL (2.0-7.7); Basophil# 0.04 X10^3/uL; Basophil% 0.8 % (0-1); Eosinophil# 0.15 X10^3/uL; Eosinophils% 2.8 % (0-5); Hematocrit 46.2 % (40-54); Hemoglobin 15.5 g/dL (13.0-16.5); Lymphocyte # 1.25 X10^3/ul (0.83-4.51); Lymphocyte % 23.5 % (19-41); Mean Corp Hgb Conc 33.5 g/dL (32-36); Mean Corpuscular Hgb 31.3 pg (27.0-32.0); Mean Corpuscular Volume 93.3 fL (80-94); Mean Platelet Vol. 9.2 fl (6.2-12.0); Monocyte# 0.52 X10^3/uL; Monocyte% 9.8 % (0-10); NRBC Flagged by Analyzer 0 % (0-5); Neutrophil # 3.31 X10^3/uL (2.7-7.7); Neutrophil % 62.2 % (47-70); Platelet Count 206 K/mm3 (150-450); RBC Distribution Width CV 13.1 % (11.6-14.6); RBC Distribution Width SD 44.6 fl (35.1-43.9); Red Blood Count 4.95 M/mm3 (4.6-6.2); White Blood Count 5.3 K/mm3 (4.4-11.0)
[2024-12-17 15:35] LABS: Microalbumin,Random Urine 35.2 mg/L (NO RANGE EST.); Microalbumin:Creatinine Ratio 71.1 mg/g CRE (<30 mg/g CRE)
[2024-12-17 15:36] LABS: AST(SGOT) 86 U/L (15-37); Alanine Aminotransfer ALT/SGPT 79 U/L (16-61); Albumin, Serum 3.9 g/dL (3.2-5.0); Alkaline Phosphatase 160 U/L (45-117); Anion Gap 9 (5-15); BUN 15 mg/dL (7-18); BUN/Creat Ratio 13.5 RATIO (10-20); Calcium,Total 8.9 mg/dL (8.5-10.1); Chloride 106 mmol/L (98-107); Cholesterol 109 mg/dL (200); Creatinine, Serum 1.11 mg/dL (0.70-1.30); EST Glomerular Filtration Rate 69 mL/min (>60); Est Glom Filt Rate - Afr Amer 84 mL/min (>60); Globulin 3.8 g/dL (2.2-4.2); Glucose 125 mg/dL (74-106); High Density Lipoprotein 30 mg/dL; PSA,Total - Annual Screen 1.01 ng/mL (0.00-4.00); Protein, Total 7.7 g/dL (6.4-8.2); Sodium Level 136 mmol/L (136-145); T4 Free Direct 1.27 ng/dL (0.76-1.46); Triglycerides 252 mg/dL; Very Low Density Lipoprotein 50 mg/dL (5-40)
[2024-12-17 15:41] LABS: Hemoglobin A1c 6.4 % (3.8-5.6)
== END | disposition home or self-care (01) ==
LOC: MTLAB 09:52
PROVIDERS: PCP Family Medicine; Referring Provider Family Medicine; Visit Provider Family Medicine
DX: Z12.5 Encounter for screening for malignant neoplasm of prostate (principal); E11.8 Type 2 diabetes mellitus with unspecified complications; E03.8 Other specified hypothyroidism
CPT/HCPCS: 36415; 80053; 80061; 82043; 82570; 83036; 84153; 84439; 84443; 85025; G0103

== ENCOUNTER → 2025-01-07 | Outpatient (CLI) | payer MEDICARE, OTHER, SELFPAY ==
--- NOTE | 2025-01-07 07:09 | US_ITS ---
PROCEDURE: ABD LIMITED W/ ELASTOGRAPHY REASON FOR EXAM: Fatty infiltration of the liver. COMPARISON: Comparison is made with prior study dated January 30, 2022. TECHNIQUE: Right upper quadrant abdominal ultrasound. [email or web address] ElastQ Imaging shear wave elastography for non-invasive assessment of liver tissue stiffness. [email or web address] EPIQ Elite. FINDINGS: LIVER: Size: Hepatomegaly. Length: 21 cm cm Echotexture: Diffusely echogenic suggesting fatty infiltration Contour: Normal Lesions: None identified Elastography: EQI Med: 14.9 kPa EQI Med Michi: 2.22 m/s IQR/Med: 23 %* GALLBLADDER: Normal COMMON BILE DUCT: Normal it measures 5.4 mm. PANCREAS: Normal Visualized portions of the right kidney are unremarkable. No right upper quadrant ascites. US/ABD Limited w/ Elastography IMPRESSION: MODERATE TO SEVERE HEPATIC FIBROSIS Reference Values: SRU <1.37 m/s (5.7kPa): No to mild fibrosis 1.37 m/s - 2.2 m/s: Moderate to severe fibrosis >2.2 m/s (15kPa): Significant fibrosis / cirrhosis METAVIR Score F2 or higher: 1.34 m/s (5.7kPa) F3 or higher: 1.55 m/s (7.3kPa) F4: 1.80 m/s (10kPa) * If the IQR/Med is >30%, the variance in the measurements is a large and the a ccuracy of the measurement may be in question. Reading Location: [id number]
== END | disposition home or self-care (01) ==
LOC: US 07:08
PROVIDERS: PCP Family Medicine; Referring Provider Family Medicine; Visit Provider Family Medicine
DX: K76.0 Fatty (change of) liver, not elsewhere classified (principal)
CPT/HCPCS: 76705; 76981

== ENCOUNTER → 2025-04-15 | Outpatient (CLI) | payer MEDICARE, OTHER, SELFPAY ==
[2025-04-15 12:32] LABS: Absolute Lymphocyte Count 1.27 X10^3/uL (0.83-4.51); Absolute Neutrophil Count 3.9 X10^3/uL (2.0-7.7); Basophil# 0.03 X10^3/uL; Basophil% 0.5 % (0-1); Eosinophil# 0.14 X10^3/uL; Eosinophils% 2.4 % (0-5); Hematocrit 47.6 % (40-54); Hemoglobin 15.8 g/dL (13.0-16.5); Lymphocyte # 1.27 X10^3/ul (0.83-4.51); Lymphocyte % 21.8 % (19-41); Mean Corp Hgb Conc 33.2 g/dL (32-36); Mean Corpuscular Hgb 30.8 pg (27.0-32.0); Mean Corpuscular Volume 92.8 fL (80-94); Mean Platelet Vol. 9.6 fl (6.2-12.0); Monocyte# 0.52 X10^3/uL; Monocyte% 8.9 % (0-10); NRBC Flagged by Analyzer 0 % (0-5); Neutrophil # 3.85 X10^3/uL (2.7-7.7); Neutrophil % 66.1 % (47-70); Platelet Count 217 K/mm3 (150-450); RBC Distribution Width CV 13.2 % (11.6-14.6); Red Blood Count 5.13 M/mm3 (4.6-6.2); White Blood Count 5.8 K/mm3 (4.4-11.0)
[2025-04-15 12:34] LABS: Hemoglobin A1c 5.5 % (<=5.6)
[2025-04-15 12:35] LABS: PTHIN 52 pg/mL (11-61)
[2025-04-15 13:05] LABS: ALB/GLOB Ratio 1.3 RATIO (0.9-2.4); AST(SGOT) 35 U/L (<=37); Alanine Aminotransfer ALT/SGPT 29 U/L (<=46); Albumin, Serum 4.3 g/dL (3.4-4.8); Alkaline Phosphatase 126 U/L (40-129); Anion Gap 12 (5-15); BUN 17 mg/dL (4-19); BUN/Creat Ratio 15.8 RATIO (10-20); Calcium,Total 9.3 mg/dL (7.6-11.0); Carbon Dioxide 23.1 mmol/L (21.0-32.0); Chloride 104 mmol/L (98-108); Cholesterol 89 mg/dL (<=200); Creatinine, Serum 1.07 mg/dL (0.70-1.20); EST Glomerular Filtration Rate 74 (>60); Globulin 3.3 g/dL (2.2-4.2); Glucose 98 mg/dL (70-99); High Density Lipoprotein 29 mg/dL; Low Density Lipoprotein Calc. 37 mg/dL; Phosphorus 3.2 mg/dL (2.7-4.5); Potassium 4.1 mmol/L (3.3-5.1); Protein, Total 7.6 g/dL (5.9-8.4); Sodium Level 138 mmol/L (133-145); Total Bilirubin 0.46 mg/dL (0.00-1.30); Triglycerides 114 mg/dL; Very Low Density Lipoprotein 23 mg/dL (5-40); cholesterol:hdl ratio screen 3.02
[2025-04-15 13:09] LABS: Thyroid Stim Hormone (TSH) 0.113 uIU/mL (0.300-4.200); Vitamin D,25 Hydroxy 37.7 ng/mL (30-100)
[2025-04-15 13:40] LABS: Microalbumin,Random Urine 18.1 mg/L (NO RANGE EST.); Microalbumin:Creatinine Ratio 148.4 mg/g CRE
== END | disposition home or self-care (01) ==
LOC: MTLAB 10:40
PROVIDERS: PCP Family Medicine; Referring Provider Family Medicine; Visit Provider Family Medicine
DX: E11.22 Type 2 diabetes mellitus with diabetic chronic kidney disease (principal); E03.8 Other specified hypothyroidism; N18.9 Chronic kidney disease, unspecified
CPT/HCPCS: 36415; 80053; 80061; 82043; 82306; 82570; 83036; 83970; 84100; 84439; 84443; 85025

== ENCOUNTER → 2025-05-24 | Outpatient (CLI) | payer MEDICARE, OTHER, SELFPAY | END | disposition home or self-care (01) | LOC: MFPLAB 16:45 | PROVIDERS: PCP Family Medicine | DX: E03.8 Other specified hypothyroidism (principal) | CPT/HCPCS: 36415; 84443 ==

== ENCOUNTER → 2025-07-15 | Outpatient (CLI) | payer MEDICARE, OTHER, SELFPAY ==
[2025-07-15 12:00] LABS: Hematocrit 42.3 % (40-54); Hemoglobin 14.2 g/dL (13.0-16.5); Immature Granulocytes Count 0.030 X10^3/uL (0.0-0.0); Mean Corp Hgb Conc 33.6 g/dL (32-36); Mean Corpuscular Volume 89.4 fL (80-94); Mean Platelet Vol. 9.3 fl (6.2-12.0); NRBC Flagged by Analyzer 0 % (0-5); Platelet Count 218 K/mm3 (150-450); RBC Distribution Width CV 13.7 % (11.6-14.6); RBC Distribution Width SD 45.1 fl (35.1-43.9); Red Blood Count 4.73 M/mm3 (4.6-6.2); White Blood Count 5.8 K/mm3 (4.4-11.0)
[2025-07-15 12:44] LABS: Creatinine, Urine (random) 80.00 mg/dL (39.00-259.00); Microalbumin,Random Urine 29.4 mg/L (<20 mg/L)
[2025-07-15 13:01] LABS: AST(SGOT) 36 U/L (<=37); Alanine Aminotransfer ALT/SGPT 36 U/L (<=46); Albumin, Serum 4.3 g/dL (3.4-4.8); Alkaline Phosphatase 106 U/L (40-129); Anion Gap 14 (5-15); BUN 23 mg/dL (4-19); BUN/Creat Ratio 19.9 RATIO (10-20); Calcium,Total 9.5 mg/dL (7.6-11.0); Carbon Dioxide 23.5 mmol/L (21.0-32.0); Chloride 99 mmol/L (98-108); Cholesterol 119 mg/dL (<=200); Globulin 3.0 g/dL (2.2-4.2); Glucose 119 mg/dL (70-99); Low Density Lipoprotein Calc. 42 mg/dL; Potassium 4.4 mmol/L (3.3-5.1); Triglycerides 199 mg/dL; Very Low Density Lipoprotein 40 mg/dL (5-40); cholesterol:hdl ratio screen 3.22
== END | disposition home or self-care (01) ==
LOC: MTLAB 09:24
PROVIDERS: PCP Family Medicine; Referring Provider Family Medicine; Visit Provider Family Medicine
DX: E11.69 Type 2 diabetes mellitus with other specified complication (principal); E03.8 Other specified hypothyroidism
CPT/HCPCS: 36415; 80053; 80061; 82043; 82570; 83036; 84439; 84443; 85025

== ENCOUNTER → 2025-10-19 | Outpatient (CLI) | payer MEDICARE, OTHER, SELFPAY ==
[2025-10-19 15:48] LABS: Free T3 2.5 pg/mL (2.18-3.98)
== END | disposition home or self-care (01) ==
LOC: MTLAB 11:18
PROVIDERS: PCP Family Medicine; Referring Provider Nurse Practitioner Family; Visit Provider Nurse Practitioner Family
DX: E03.9 Hypothyroidism, unspecified (principal)
CPT/HCPCS: 36415; 84439; 84443; 84481